=== PATIENT | female | born 1980 | race African-American/Black ===

== ENCOUNTER 2018-09-12 16:10 | Emergency (ER) | payer MEDICAID ==
[~2018-09-12] VITALS: Ht 165.1 cm; Wt 89.0 kg
[~2018-09-12 16:10] MED LIST: AZIT1PAC10 PO; FLUT1DIS3 INH; GUAI600T26 PO; P20 PO
[2018-09-12] MEDS ORDERED: MAGNESIUM 2 G PREMIX 50 ML IV STA (16:27)
[2018-09-12] MEDS ORDERED: IPRATROPIUM BROMIDE (0.02%) 0.5MG/2.5ML NEB HHN STA (16:27)
[2018-09-12] MEDS ORDERED: METHYLPREDNISOLONE SOD SUCC 125 MG/2 ML VIAL IV STA (16:27)
[2018-09-12] MEDS ORDERED: ALBUTEROL (0.083%) 2.5MG/3ML NEB HHN STA (16:27)
[2018-09-12] MEDS ORDERED: SODIUM CHLORIDE 0.9% 1,000 ML IV ONE (16:27)
[2018-09-12 17:27] LABS: BASOPHILS % 0.9 % (0.0-2.0); EOSINOPHILS % 1.2 % (0.0-5.0); HEMOGLOBIN. 13.9 g/dL (12.0-16.0); LYMPHOCYTES % 17.3 % (20.0-50.0); MEAN CORPUSCULAR HEMOGLOBIN 29.4 pg (28.0-32.0); MEAN PLATELET VOLUME 7.8 fl (7.4-10.4); MONOCYTES % 8.1 % (2.0-8.0); NEUTROPHILS % 72.5 % (40.0-76.0); PLATELET 341 x1000/uL (130-400); RED BLOOD CELL COUNT 4.72 mill/uL (4.2-5.4); RED CELL DISTRIBUTION WIDTH 14.6 % (11.6-14.6)
[2018-09-12 17:29] LABS: CHLORIDE 103 mEq/L (98-107)
[2018-09-12 17:41] LABS: HCG SCREEN NEGATIVE
[2018-09-12 17:46] LABS: INR 0.9; PROTHROMBIN TIME 9.6 sec (9.6-11.0)
[2018-09-12] MEDS ORDERED: LEVOFLOXACIN 500MG PREMIX 100 ML IV ONE (18:00)
[2018-09-12 21:30] VITALS: BP 155/95
== END 2018-09-12 22:03 | disposition left against medical advice (07) ==
LOC: ER 16:10 → EDBEDREQ 17:16 → CANRESERV 20:03 → ENRESERV 20:03 → ER 22:03 → CANBEDREQ 22:27
DX: J45.901 Unspecified asthma with (acute) exacerbation (principal); R65.10 Systemic inflammatory response syndrome (SIRS) of non-infectious origin without acute organ dysfunction; Z79.899 Other long term (current) drug therapy; Z87.891 Personal history of nicotine dependence
CPT/HCPCS: 36415; 71045; 80048; 83880; 84484; 84703; 85025; 85610; 85730; 87040; 93005; 94640; 96365; 96367; 96375; 99284; J1956; J2930; J3475; J7030; J7611

== ENCOUNTER 2018-09-26 19:38 | Inpatient (IN) | payer MEDICAID ==
[~2018-09-26] VITALS: Ht 167.6 cm; Wt 44.5 kg
[2018-09-26] MEDS ORDERED: IPRATROPIUM BROMIDE (0.02%) 0.5MG/2.5ML NEB HHN STA (20:31)
[2018-09-26] MEDS ORDERED: SODIUM CHLORIDE 0.9% 1,000 ML IV ONE (20:31)
[2018-09-26] MEDS ORDERED: MAGNESIUM 2 G PREMIX 50 ML IV STA (20:31)
[2018-09-26] MEDS ORDERED: METHYLPREDNISOLONE SOD SUCC 125 MG/2 ML VIAL IV STA (20:31)
[2018-09-26] MEDS ORDERED: ALBUTEROL (0.083%) 2.5MG/3ML NEB HHN STA (20:31)
[2018-09-26 20:51] LABS: CHLORIDE 106 mEq/L (98-107); HEMATOCRIT. 40.5 % (36.0-48.0); HEMOGLOBIN. 13.7 g/dL (12.0-16.0); MEAN CORPUSCULAR VOLUME 88.6 fL (81.0-99.0); MEAN PLATELET VOLUME 7.8 fl (7.4-10.4); PLATELET 344 x1000/uL (130-400); RED BLOOD CELL COUNT 4.57 mill/uL (4.2-5.4); RED CELL DISTRIBUTION WIDTH 14.4 % (11.6-14.6)
[2018-09-26 20:56] LABS: PARTIAL THROMBOPLASTIN TIME 29.9 sec (23.4-31.0); PROTHROMBIN TIME 10.2 sec (9.6-11.0)
[2018-09-26 21:16] LABS: HCG SCREEN NEGATIVE
[2018-09-26] MEDS ORDERED: AZITHROMYCIN 500 MG in DEXT 5% WATER 250 ML IV STA (21:24)
[2018-09-26 21:29] LABS: PLATELET ESTIMATE NORMAL
[2018-09-26] MEDS ORDERED: CEFTRIAXONE 1 G PREMIX 50 ML IV ONE (21:30)
[2018-09-26] MEDS ORDERED: LEVOFLOXACIN 500MG PREMIX 100 ML IV SCH (23:00)
[2018-09-26] MEDS ORDERED: HYDROCODONE/ACETAMINOPHEN 5/325MG TABLET PO PRN (23:00)
[2018-09-26] MEDS ORDERED: DOCUSATE SODIUM 100MG CAPSULE PO PRN (23:00)
[2018-09-26] MEDS ORDERED: IPRATROPIUM/ALBUTEROL 0.5-3(2.5)MG/3ML NEB INH PRN (23:00)
[2018-09-26] MEDS ORDERED: ACETAMINOPHEN 325MG TABLET PO PRN (23:00)
[2018-09-26] MEDS ORDERED: CLONIDINE 0.1MG TABLET PO PRN (23:00)
[2018-09-26] MEDS ORDERED: ONDANSETRON HCL 4MG/2ML INJ IV PRN (23:00)
[2018-09-27] VITALS (12 sets, daily range): BP systolic 117–149; BP diastolic 59–105
[2018-09-27] MEDS ORDERED: FLUT1AER IH (00:39)
[2018-09-27] MEDS ORDERED: MONT5TAB13 PO (00:39)
[2018-09-27 01:35] LABS: CLARITY URINE CLEAR (CLEAR); COLOR URINE YELLOW (YELLOW); KETONES URINE 1+ (NEGATIVE); LEUKOCYTE ESTERASE URINE NEGATIVE (NEGATIVE); NITRITE URINE NEGATIVE (NEGATIVE); OCCULT BLOOD URINE TRACE (NEGATIVE); PROTEIN URINE TRACE (NEGATIVE); SPECIFIC GRAVITY URINE 1.023 (1.005-1.030)
[2018-09-27] MEDS ORDERED: IPRATROPIUM/ALBUTEROL 0.5-3(2.5)MG/3ML NEB INH SCH ×2 (06:00)
[2018-09-27] MEDS: METHYLPREDNISOLONE SOD SUCC 125 MG/2 ML VIAL IV SCH ×3 (06:44→17:11)
[2018-09-27 07:09] LABS: HEMOGLOBIN. 13.2 g/dL (12.0-16.0); MEAN CORPUSCULAR HEMOGLOBIN 29.7 pg (28.0-32.0); MEAN CORPUSCULAR VOLUME 89.7 fL (81.0-99.0); PLATELET 348 x1000/uL (130-400); RED BLOOD CELL COUNT 4.46 mill/uL (4.2-5.4); RED CELL DISTRIBUTION WIDTH 14.5 % (11.6-14.6)
[2018-09-27 07:50] LABS: CHLORIDE 106 mEq/L (98-107)
[2018-09-27] MEDS: LEVOFLOXACIN 500MG PREMIX 100 ML IV SCH (08:20)
[2018-09-27] MEDS: AMLODIPINE 10MG TABLET PO SCH (08:20)
[2018-09-27] MEDS: ENOXAPARIN 40MG/0.4ML SYR SUBCUT SCH (08:20)
[2018-09-27] MEDS ORDERED: IPRATROPIUM/ALBUTEROL 0.5-3(2.5)MG/3ML NEB HHN SCH (12:00)
[2018-09-27] MEDS: LORATADINE 10MG TABLET PO SCH (12:20)
[2018-09-27] MEDS ORDERED: MONTELUKAST SODIUM 10MG TABLET PO SCH (17:00)
[2018-09-27 17:22] LABS: PLATELET ESTIMATE NORMAL
[2018-09-27] MEDS: FAMOTIDINE 20MG/2ML VIAL IV SCH (21:36)
[2018-09-28] VITALS (8 sets, daily range): BP systolic 114–158; BP diastolic 62–101
[2018-09-28] MEDS: METHYLPREDNISOLONE SOD SUCC 125 MG/2 ML VIAL IV SCH ×3 (00:12→11:42)
[2018-09-28] MEDS: LEVOFLOXACIN 500MG PREMIX 100 ML IV SCH (08:44)
[2018-09-28] MEDS: ENOXAPARIN 40MG/0.4ML SYR SUBCUT SCH (08:45)
[2018-09-28] MEDS: AMLODIPINE 10MG TABLET PO SCH (08:45)
[2018-09-28] MEDS: LORATADINE 10MG TABLET PO SCH (08:45)
[2018-09-28] MEDS: FAMOTIDINE 20MG/2ML VIAL IV SCH (08:45)
[2018-09-28] MEDS ORDERED: HYDRALAZINE HCL 10MG TABLET PO SCH (14:00)
== END 2018-09-28 13:50 | disposition home or self-care (01) | DRG 133 ==
LOC: ER 19:38 → 3WST 21:26 → EDBEDREQSVC 21:28 → EDBEDREQTM 21:28 → EDBEDREQ 21:28 → ENRESERV 21:40 → SUPCPDRO 22:53
PROVIDERS: ADMIT Hospitalist; ATTEND Hospitalist
DX: J96.00 Acute respiratory failure, unspecified whether with hypoxia or hypercapnia (principal); J45.901 Unspecified asthma with (acute) exacerbation; D72.829 Elevated white blood cell count, unspecified; Z60.2 Problems related to living alone; I10 Essential (primary) hypertension; Z87.891 Personal history of nicotine dependence; Z79.2 Long term (current) use of antibiotics; Z79.899 Other long term (current) drug therapy
CPT/HCPCS: 36415; 71045; 83605; 83880; 84484; 84703; 93005; 93970; 94640; 99291; C1893; J0456; J0696; J1650; J1956; J2930; J3475; J3490; J7030; J7050; J7060; J7611; J7620

== ENCOUNTER 2018-11-23 16:05 | Emergency (ER) | payer MEDICAID ==
[~2018-11-23] VITALS: Ht 167.6 cm; Wt 113.0 kg
[~2018-11-23 16:05] MED LIST changes: +FLUT1AER IH; -P20 PO
[2018-11-23] MEDS ORDERED: ALBUTEROL (0.083%) 2.5MG/3ML NEB HHN STA (16:59)
[2018-11-23] MEDS ORDERED: IPRATROPIUM BROMIDE (0.02%) 0.5MG/2.5ML NEB HHN STA (16:59)
[2018-11-23] MEDS ORDERED: PREDNISONE 20MG TABLET PO STA (16:59)
[2018-11-23 17:40] VITALS: BP 118/86
== END 2018-11-23 17:50 | disposition home or self-care (01) ==
LOC: ER 16:05
DX: J45.901 Unspecified asthma with (acute) exacerbation (principal); J06.9 Acute upper respiratory infection, unspecified
CPT/HCPCS: 94644; 99285; J7512; J7611; Z7610

== ENCOUNTER 2019-02-06 17:00 | Emergency (ER) | payer MEDICAID ==
[~2019-02-06] VITALS: Ht 167.6 cm; Wt 115.0 kg
[2019-02-06] MEDS ORDERED: PREDNISONE 20MG TABLET PO STA (18:07)
[2019-02-06] MEDS ORDERED: IPRATROPIUM BROMIDE (0.02%) 0.5MG/2.5ML NEB HHN STA (18:07)
[2019-02-06] MEDS ORDERED: ALBUTEROL (0.083%) 2.5MG/3ML NEB HHN STA (18:07)
[2019-02-06] MEDS ORDERED: HYDROCODONE/ACETAMINOPHEN 5/325MG TABLET PO ONE (19:15)
[2019-02-06 20:30] VITALS: BP 113/78
== END 2019-02-06 20:40 | disposition home or self-care (01) ==
LOC: ER 17:00
DX: J45.901 Unspecified asthma with (acute) exacerbation (principal); R07.89 Other chest pain; Z79.899 Other long term (current) drug therapy
CPT/HCPCS: 94644; 99285; J7512; J7611; Z7610

== ENCOUNTER 2019-03-03 02:20 | Emergency (ER) | payer MEDICAID ==
[~2019-03-03] VITALS: Ht 167.6 cm; Wt 114.0 kg
[2019-03-03] MEDS ORDERED: MAGNESIUM 2 G PREMIX 50 ML IV STA (05:39)
[2019-03-03] MEDS ORDERED: METHYLPREDNISOLONE SOD SUCC 125 MG/2 ML VIAL IV STA (05:39)
[2019-03-03] MEDS ORDERED: ALBUTEROL (0.083%) 2.5MG/3ML NEB HHN STA (05:39)
[2019-03-03] MEDS ORDERED: IPRATROPIUM BROMIDE (0.02%) 0.5MG/2.5ML NEB HHN STA (05:39)
[2019-03-03 09:33] VITALS: BP 120/76
== END 2019-03-03 10:05 | disposition home or self-care (01) ==
LOC: ER 02:20
DX: J45.901 Unspecified asthma with (acute) exacerbation (principal); F91.8 Other conduct disorders
CPT/HCPCS: 71045; 94640; 96365; 96375; 99285; J2930; J3475; J7611; Z7610

== ENCOUNTER 2019-12-24 12:49 | Emergency (ER) | payer MEDICAID ==
[~2019-12-24] VITALS: Ht 167.6 cm; Wt 113.0 kg
[2019-12-24] MEDS ORDERED: PREDNISONE 20MG TABLET PO STA (13:25)
[2019-12-24] MEDS ORDERED: IPRATROPIUM BROMIDE (0.02%) 0.5MG/2.5ML NEB HHN STA (13:25)
[2019-12-24] MEDS ORDERED: ALBUTEROL (0.083%) 2.5MG/3ML NEB HHN STA (13:25)
[2019-12-24 14:39] VITALS: BP 124/70
== END 2019-12-24 14:39 | disposition home or self-care (01) ==
LOC: ER 12:49
DX: J45.901 Unspecified asthma with (acute) exacerbation (principal)
CPT/HCPCS: 94640; 99283; J7512; Z7610

== ENCOUNTER 2020-01-23 17:25 | Emergency (ER) | payer MEDICAID ==
[~2020-01-23] VITALS: Ht 167.6 cm; Wt 120.0 kg
[2020-01-23 17:26] VITALS: BP 151/101
[2020-01-23] MEDS ORDERED: DEXAMETHASONE 10 MG/ML VIAL IM ONE (18:30)
[2020-01-23] MEDS ORDERED: IPRATROPIUM/ALBUTEROL 0.5-3(2.5)MG/3ML NEB HHN ONE ×2 (18:30→19:15)
== END 2020-01-23 20:00 | disposition home or self-care (01) ==
LOC: ER 17:25
DX: J45.901 Unspecified asthma with (acute) exacerbation (principal); R03.0 Elevated blood-pressure reading, without diagnosis of hypertension
CPT/HCPCS: 71045; 94640; 99284; J1100; Z7610

== ENCOUNTER 2020-05-22 19:34 | Emergency (ER) | payer MEDICAID ==
[~2020-05-22] VITALS: Ht 167.6 cm; Wt 113.0 kg
[2020-05-22 19:37] VITALS: BP 151/93
[2020-05-22] MEDS ORDERED: PREDNISONE 20MG TABLET PO STA (20:05)
[2020-05-22] MEDS ORDERED: ALBUTEROL 6.7GM HFA INHALER ORI ONE (20:15)
[2020-05-22] MEDS ORDERED: P50 MT (21:42)
[2020-05-22] MEDS ORDERED: NEBU-281 MC (21:43)
== END 2020-05-22 21:53 | disposition home or self-care (01) ==
LOC: ER 19:34
DX: J45.21 Mild intermittent asthma with (acute) exacerbation (principal); Z20.822 Contact with and (suspected) exposure to COVID-19; F17.210 Nicotine dependence, cigarettes, uncomplicated; R03.0 Elevated blood-pressure reading, without diagnosis of hypertension
CPT/HCPCS: 71045; 93005; 94640; 99285; C9803; J7512; U0003; Z7610

== ENCOUNTER 2020-08-16 20:33 | Emergency (ER) | payer MEDICAID ==
[~2020-08-16] VITALS: Ht 167.6 cm; Wt 113.0 kg
[~2020-08-16 20:33] MED LIST changes: +NEBU-281 MC; +P50 MT
[2020-08-16] MEDS ORDERED: IPRATROPIUM BROMIDE (0.02%) 0.5MG/2.5ML NEB HHN STA (21:39)
[2020-08-16] MEDS ORDERED: ALBUTEROL (0.083%) 2.5MG/3ML NEB HHN STA (21:39)
[2020-08-16] MEDS ORDERED: MAGNESIUM 2 G PREMIX 50 ML IV STA (21:39)
[2020-08-16] MEDS ORDERED: METHYLPREDNISOLONE SOD SUCC 125 MG/2 ML VIAL IV STA (21:39)
[2020-08-16] MEDS ORDERED: SODIUM CHLORIDE 0.9% 1,000 ML IV ONE (21:45)
[2020-08-16 22:23] LABS: BASOPHILS % 0.7 % (0.0-2.0); EOSINOPHILS % 2.1 % (0.0-5.0); HEMATOCRIT. 41.6 % (36.0-48.0); HEMOGLOBIN. 13.8 g/dL (12.0-16.0); LYMPHOCYTES % 21.8 % (20.0-50.0); MEAN CORPUSCULAR HEMOGLOBIN 29.6 pg (28.0-32.0); MEAN CORPUSCULAR VOLUME 89.1 fL (81.0-99.0); MEAN PLATELET VOLUME 7.9 fl (7.4-10.4); MONOCYTES % 8.8 % (2.0-8.0); NEUTROPHILS % 66.6 % (40.0-76.0); PLATELET 374 x1000/uL (130-400); RED BLOOD CELL COUNT 4.67 mill/uL (4.2-5.4); RED CELL DISTRIBUTION WIDTH 13.5 % (11.6-14.6)
[2020-08-16 22:29] LABS: CHLORIDE 104 mEq/L (98-107)
[2020-08-16 22:31] LABS: HCG SCREEN NEGATIVE
[2020-08-16 23:04] VITALS: BP 122/69
[2020-08-16] MEDS ORDERED: P50 MT (23:22)
[2020-08-16] MEDS ORDERED: ALBU6.7H9 INH (23:25)
== END 2020-08-17 00:47 | disposition home or self-care (01) ==
LOC: ER 20:33
DX: J45.901 Unspecified asthma with (acute) exacerbation (principal); Z79.899 Other long term (current) drug therapy
CPT/HCPCS: 36415; 71045; 80053; 83880; 84484; 84703; 85025; 93005; 94644; 96365; 96366; 96375; 99285; J2930; J3475; J7030; Z7610

== ENCOUNTER 2021-02-21 12:40 | Emergency (ER) | payer MEDICAID ==
[~2021-02-21] VITALS: Ht 167.6 cm; Wt 114.0 kg
[~2021-02-21 12:40] MED LIST changes: -IPRATROPIUM BROMIDE (0.02%) 0.5MG/2.5ML NEB ONE
[2021-02-21] MEDS ORDERED: ALBUTEROL (0.083%) 2.5MG/3ML NEB HHN STA (15:35)
[2021-02-21] MEDS ORDERED: PREDNISONE 20MG TABLET PO STA (15:35)
[2021-02-21] MEDS ORDERED: IPRATROPIUM BROMIDE (0.02%) 0.5MG/2.5ML NEB HHN STA (15:35)
[2021-02-21] MEDS ORDERED: ALBUTEROL (0.083%) 2.5MG/3ML NEB ONE (17:00)
[2021-02-21] MEDS ORDERED: P50 MT (17:21)
[2021-02-21 18:10] VITALS: BP 157/98
== END 2021-02-21 18:13 | disposition home or self-care (01) ==
LOC: ER 12:40
DX: J45.901 Unspecified asthma with (acute) exacerbation (principal); Z79.51 Long term (current) use of inhaled steroids; Z79.899 Other long term (current) drug therapy
CPT/HCPCS: 71045; 94640; 99283; J7512; Z7610

== ENCOUNTER → 2021-02-21 | Emergency (ER) | payer MEDICAID ==
[~2021-02-21] MED LIST changes: +ALBU6.7H9 INH; +IPRATROPIUM BROMIDE (0.02%) 0.5MG/2.5ML NEB ONE
== END | disposition left against medical advice (07) ==
LOC: ER 13:02
DX: J45.909 Unspecified asthma, uncomplicated (principal); Z53.21 Procedure and treatment not carried out due to patient leaving prior to being seen by health care provider

== ENCOUNTER 2022-06-18 20:53 | Emergency (ER) | payer MEDICAID ==
[~2022-06-18] VITALS: Ht 167.6 cm; Wt 103.6 kg
[~2022-06-18 20:53] MED LIST changes: +ALBU6.7H3 INH; -ALBU6.7H9 INH
[2022-06-18] MEDS ORDERED: KETOROLAC 60MG/2ML VIAL IM STA (23:11)
[2022-06-18 23:52] VITALS: BP 175/99
[2022-06-19] MEDS ORDERED: NAPR-681 PO (01:03)
== END 2022-06-19 01:23 | disposition home or self-care (01) ==
LOC: ER 21:02
DX: M72.2 Plantar fascial fibromatosis (principal); M20.12 Hallux valgus (acquired), left foot; M21.612 Bunion of left foot; M77.32 Calcaneal spur, left foot; J45.909 Unspecified asthma, uncomplicated
CPT/HCPCS: 73630; 81025; 96372; 99283; J1885

== ENCOUNTER 2023-03-29 22:03 | Emergency (ER) | payer MEDICAID ==
[~2023-03-29] VITALS: Ht 167.6 cm; Wt 132.0 kg
[~2023-03-29 22:03] MED LIST changes: +NAPR-681 PO
[2023-03-29 22:07] VITALS: TEMP 98.5
[2023-03-29] MEDS ORDERED: IPRATROPIUM BROMIDE (0.02%) 0.5MG/2.5ML NEB HHN STA (23:49)
[2023-03-29] MEDS ORDERED: ALBUTEROL (0.083%) 2.5MG/3ML NEB HHN STA (23:49)
[2023-03-29] MEDS ORDERED: PREDNISONE 20MG TABLET PO STA (23:49)
[2023-03-30 00:20] VITALS: PULSE 119; RESP 20; O2SAT 99
[2023-03-30] MEDS ORDERED: P50 MT (00:49)
[2023-03-30] MEDS ORDERED: ALBU6.7H15 INH (00:51)
[2023-03-30 00:52] VITALS: BP 184/123; PULSE 115; RESP 24
[2023-03-30] MEDS ORDERED: OCUFLX LEFTEYE (00:54)
== END 2023-03-30 01:04 | disposition left against medical advice (07) ==
LOC: ER 22:03
DX: J45.901 Unspecified asthma with (acute) exacerbation (principal); I10 Essential (primary) hypertension; H10.9 Unspecified conjunctivitis
CPT/HCPCS: 94644; 99285; J7512; Z7610 ×2

== ENCOUNTER 2023-05-31 02:30 | Inpatient (IN) | payer MEDICAID ==
[~2023-05-31] VITALS: Ht 165.1 cm; Wt 113.4 kg
[~2023-05-31 02:30] MED LIST changes: +ALBU6.7H15 INH; +OCUFLX LEFTEYE
[2023-05-31] MEDS: MAGNESIUM 2 G PREMIX 50 ML IV ONE (02:53)
[2023-05-31] MEDS: METHYLPREDNISOLONE SOD SUCC 125MG/2ML (ACT-O-VIAL) IV ONE (02:53)
[2023-05-31 03:07] LABS: BASOPHILS % 0.8 % (0.0-2.0); EOSINOPHILS % 0.2 % (0.0-5.0); HEMATOCRIT. 41.5 % (36.0-48.0); HEMOGLOBIN. 12.9 g/dL (12.0-16.0); LYMPHOCYTES % 25.1 % (20.0-50.0); MEAN CORPUSCULAR HEMOGLOBIN 27.3 pg (28.0-32.0); MEAN CORPUSCULAR HGB CONC 31.1 g/dL (31.0-37.0); MEAN CORPUSCULAR VOLUME 87.5 fL (81.0-99.0); MEAN PLATELET VOLUME 7.9 fl (7.4-10.4); MONOCYTES % 10.2 % (2.0-8.0); NEUTROPHILS % 63.7 % (40.0-76.0); PLATELET 299 x1000/uL (130-400); RED BLOOD CELL COUNT 4.74 mill/uL (4.2-5.4); RED CELL DISTRIBUTION WIDTH 18.7 % (11.6-14.6); WHITE BLOOD COUNT 17.5 x1000/uL (4.5-11.0)
[2023-05-31] MEDS: ALBUTEROL (0.083%) 2.5MG/3ML NEB HHN ONE (03:10)
[2023-05-31 03:11] VITALS: PULSE 119; RESP 24; O2SAT 96
[2023-05-31 03:11] LABS: CALCIUM 9.3 mg/dL (8.7-10.4); CARBON DIOXIDE 30 mEq/L (21-32); CHLORIDE 105 mEq/L (98-107); CREATININE 0.9 mg/dL (0.6-1.0); GLUCOSE 157 mg/dL (70-105); HCG SCREEN NEGATIVE; SODIUM 142 mEq/L (136-145); UREA NITROGEN BLOOD 16 mg/dL (9-23)
[2023-05-31] MEDS: IPRATROPIUM/ALBUTEROL 0.5-3(2.5)MG/3ML NEB HHN ONE (03:11)
[2023-05-31] MEDS: CEFTRIAXONE 1GM PREMIX 50 ML IV ONE (05:56)
[2023-05-31] MEDS: AZITHROMYCIN 500MG/250ML 250 ML IV ONE (05:56)
[2023-05-31] MEDS ORDERED: GUAIFENESIN 200MG/10ML SUGAR FREE UDC PO PRN (10:00)
[2023-05-31] MEDS ORDERED: IPRATROPIUM/ALBUTEROL 0.5-3(2.5)MG/3ML NEB HHN PRN (10:00)
[2023-05-31] MEDS ORDERED: ONDANSETRON HCL 4MG/2ML INJ IV PRN (10:00)
[2023-05-31] MEDS ORDERED: HYDROCODONE/ACETAMINOPHEN 5/325MG TABLET PO PRN (10:00)
[2023-05-31] MEDS ORDERED: DOCUSATE SODIUM 100MG CAPSULE PO PRN (10:00)
[2023-05-31] MEDS ORDERED: DIPHENHYDRAMINE 50MG/ML VIAL IV PRN (10:00)
[2023-05-31] MEDS ORDERED: ACETAMINOPHEN 325MG TABLET PO PRN (10:00)
[2023-05-31 10:15] LABS: BG BASE EXCESS 2.7 mmol/L (-2.0-2.0); BG FRACTION INSPIRED OXYGEN 40; BG HCO3 ACT 29.6 mmol/L (22.0-26.0); BG METHEMOGLOBIN 0.1 % (0.0-1.5); BG OXYGEN SATURATION 93.9 % (92.0-98.5); BG OXYHEMOGLOBIN 92.9 % (94.0-97.0); BG PCO2 55.6 mmHg (35.0-45.0); BG PH 7.344 (7.350-7.450); BG PO2 76.4 mmHg (75.0-100.0); BG SAMPLE SITE RIGHT BRACHIAL; BG TOTAL HEMOGLOBIN 13.4 g/dL (12.0-18.0); BG VENT MODE NASAL CANNULA
[2023-05-31] MEDS ORDERED: NALOXONE HCL 0.4MG/ML VIAL IV PRN (10:30)
[2023-05-31] MEDS ORDERED: AMLODIPINE 10MG TABLET PO SCH (10:30)
[2023-05-31] MEDS: AMLODIPINE 5MG TABLET PO NR (11:22)
[2023-05-31] MEDS: METHYLPREDNISOLONE SOD SUCC 125MG/2ML (ACT-O-VIAL) IV SCH (11:23)
[2023-05-31] MEDS: LISINOPRIL 40MG TABLET PO SCH (11:30)
[2023-05-31] MEDS: ENOXAPARIN 30MG/0.3ML SYR SUBCUT SCH (11:30)
[2023-05-31] MEDS: CLONIDINE 0.1MG TABLET PO PRN (12:16)
[2023-05-31] MEDS: HYDRALAZINE HCL 100MG TABLET PO NR (12:33)
[2023-05-31 13:00] VITALS: BP 188/121; PULSE 121; RESP 20; TEMP 98.2
[2023-05-31] MEDS: IPRATROPIUM/ALBUTEROL 0.5-3(2.5)MG/3ML NEB HHN SCH (13:49)
[2023-05-31 15:49] VITALS: PULSE 117; RESP 20
[2023-05-31 16:00] VITALS: BP 176/94; PULSE 126; RESP 21; TEMP 97.1
[2023-05-31 20:00] VITALS: BP 152/79; PULSE 102; PULSE 125; RESP 19; RESP 20; TEMP 97.7
[2023-06-01] VITALS (10 sets, daily range): BP systolic 130–164; BP diastolic 81–95; PULSE 101–125; RESP 17–25; TEMP 97–98.2
[2023-06-01] MEDS ORDERED: AZITHROMYCIN 500 MG in DEXT 5% WATER 250 ML IV SCH (06:00)
[2023-06-01] MEDS ORDERED: CEFTRIAXONE 1GM PREMIX 50 ML IV SCH (06:00)
[2023-06-01 06:06] LABS: ALANINE AMINOTRANSFERASE 43 IU/L (10-49); ASPARTATE AMINOTRANSFERASE 24 IU/L (<34); BILIRUBIN TOTAL 0.5 mg/dL (0.1-1.0); CALCIUM 9.4 mg/dL (8.7-10.4); CARBON DIOXIDE 31 mEq/L (21-32); CHLORIDE 103 mEq/L (98-107); CHOLESTEROL 176 mg/dL (<200); CREATININE 0.7 mg/dL (0.6-1.0); GLUCOSE 170 mg/dL (70-105); HDL CHOLESTEROL 78 mg/dL (>65); LDL CHOLESTEROL 87 mg/dL (5-100); SODIUM 141 mEq/L (136-145); TRIGLYCERIDE 53 mg/dL (0-150); UREA NITROGEN BLOOD 11 mg/dL (9-23)
[2023-06-01 06:15] LABS: PROTEIN TOTAL 5.7 g/dL (6.0-8.3)
[2023-06-01 07:16] LABS: HEMATOCRIT. 36.4 % (36.0-48.0); HEMOGLOBIN. 11.5 g/dL (12.0-16.0); MEAN CORPUSCULAR HEMOGLOBIN 27.6 pg (28.0-32.0); MEAN CORPUSCULAR HGB CONC 31.7 g/dL (31.0-37.0); MEAN CORPUSCULAR VOLUME 87.1 fL (81.0-99.0); MEAN PLATELET VOLUME 8.2 fl (7.4-10.4); PLATELET 281 x1000/uL (130-400); RED BLOOD CELL COUNT 4.18 mill/uL (4.2-5.4); RED CELL DISTRIBUTION WIDTH 18.6 % (11.6-14.6); WHITE BLOOD COUNT 21.5 x1000/uL (4.5-11.0)
[2023-06-01 07:41] LABS: DIFFERENTIAL COMMENT 1
[2023-06-01] MEDS: AMLODIPINE 10MG TABLET PO SCH (08:59)
[2023-06-01] MEDS: AZITHROMYCIN 500 MG in DEXT 5% WATER 250 ML IV SCH (09:00)
[2023-06-01] MEDS: CEFTRIAXONE 1GM PREMIX 50 ML IV SCH (10:58)
[2023-06-01] MEDS: HYDRALAZINE HCL 10MG TABLET PO SCH (13:55)
[2023-06-01] MEDS: METHYLPREDNISOLONE SOD SUCC 40MG/ML (ACT-O-VIAL) IV SCH (13:56)
[2023-06-01 15:20] LABS: ATYPICAL LYMPHOCYTES 2; PLATELET ESTIMATE NORMAL
[2023-06-02] VITALS (7 sets, daily range): BP systolic 156–181; BP diastolic 80–114; PULSE 94–116; RESP 18–20; TEMP 97.2–97.8; O2SAT 97
[2023-06-02] MEDS: TRAMADOL 50MG TABLET PO PRN (08:28)
[2023-06-02] MEDS ORDERED: HYDRALAZINE HCL 100MG TABLET PO SCH (14:00)
== END 2023-06-02 17:55 | disposition home or self-care (01) | DRG 141 ==
LOC: ER 02:30 → 8WST 05:19
PROVIDERS: ADMIT Hospitalist; ATTEND Hospitalist
DX: J45.901 Unspecified asthma with (acute) exacerbation (principal); E66.9 Obesity, unspecified; I16.0 Hypertensive urgency; Z68.41 Body mass index [BMI] 40.0-44.9, adult; Z79.899 Other long term (current) drug therapy
CPT/HCPCS: 36415; 36600; 71045; 80048; 80053; 80061; 82375; 82805; 83605; 84145; 84703; 85025; 93005; 94640; 99285; J0456; J0696; J1650; J2920; J2930; J3475; J7060

== ENCOUNTER 2023-11-19 23:50 | Inpatient (IN) | payer SELFPAY ==
[~2023-11-19] VITALS: Ht 167.6 cm; Wt 90.7 kg
[~2023-11-19 23:50] MED LIST changes: -AZIT1PAC10 PO
[2023-11-20] MEDS: ALBUTEROL (0.083%) 2.5MG/3ML NEB HHN STA (00:19)
[2023-11-20] MEDS: IPRATROPIUM BROMIDE (0.02%) 0.5MG/2.5ML NEB HHN STA (00:20)
[2023-11-20 00:24] VITALS: PULSE 135; RESP 26; O2SAT 98
[2023-11-20 00:39] LABS: BASOPHILS % 0.4 % (0.0-2.0); EOSINOPHILS % 0.3 % (0.0-5.0); HEMOGLOBIN. 10.4 g/dL (12.0-16.0); LYMPHOCYTES % 12.2 % (20.0-50.0); MEAN CORPUSCULAR HEMOGLOBIN 25.4 pg (28.0-32.0); MEAN CORPUSCULAR HGB CONC 30.4 g/dL (31.0-37.0); MEAN CORPUSCULAR VOLUME 83.4 fL (81.0-99.0); MEAN PLATELET VOLUME 7.7 fl (7.4-10.4); MONOCYTES % 11.6 % (2.0-8.0); NEUTROPHILS % 75.5 % (40.0-76.0); PLATELET 362 x1000/uL (130-400); RED BLOOD CELL COUNT 4.08 mill/uL (4.2-5.4); RED CELL DISTRIBUTION WIDTH 19.1 % (11.6-14.6); WHITE BLOOD COUNT 15.7 x1000/uL (4.5-11.0)
[2023-11-20 00:42] LABS: CHLORIDE 105 mEq/L (98-107); POTASSIUM 3.4 mEq/L (3.5-5.1); SODIUM 141 mEq/L (136-145)
[2023-11-20 00:43] LABS: CARBON DIOXIDE 31 mEq/L (21-32)
[2023-11-20 00:44] LABS: CALCIUM 9.1 mg/dL (8.7-10.4)
[2023-11-20 00:47] LABS: PARTIAL THROMBOPLASTIN TIME 23.8 sec (23.4-31.0); PROTHROMBIN TIME 10.9 sec (9.6-11.0)
[2023-11-20 00:48] LABS: CREATININE 0.7 mg/dL (0.6-1.0); GLUCOSE 166 mg/dL (70-105); UREA NITROGEN BLOOD 12 mg/dL (9-23)
[2023-11-20 00:51] LABS: ETHANOL BLOOD < 10 mg/dL (<10); TROPONIN I HIGH SENSITIVITY 68 ng/L (3.0-34)
[2023-11-20 01:06] LABS: HCG SCREEN NEGATIVE
[2023-11-20] MEDS: METHYLPREDNISOLONE SOD SUCC 125MG/2ML (ACT-O-VIAL) IV STA (01:11)
[2023-11-20] MEDS: SODIUM CHLORIDE 0.9% 1,000 ML IV ONE (01:12)
[2023-11-20] MEDS: MAGNESIUM 2 G PREMIX 50 ML IV ONE (01:41)
[2023-11-20] MEDS: LABETALOL 5MG/ML 4ML INJ IV ONE (02:55)
[2023-11-20] MEDS ORDERED: IPRATROPIUM/ALBUTEROL 0.5-3(2.5)MG/3ML NEB HHN PRN (04:00)
[2023-11-20] MEDS ORDERED: ONDANSETRON HCL 4MG/2ML INJ IV PRN (04:00)
[2023-11-20] MEDS ORDERED: GUAIFENESIN 200MG/10ML SUGAR FREE UDC PO PRN (04:00)
[2023-11-20] MEDS ORDERED: DOCUSATE SODIUM 100MG CAPSULE PO PRN (04:00)
[2023-11-20 05:00] LABS: CARBON DIOXIDE 32 mEq/L (21-32); CHLORIDE 104 mEq/L (98-107); POTASSIUM 3.7 mEq/L (3.5-5.1); SODIUM 140 mEq/L (136-145)
[2023-11-20] MEDS ORDERED: DEXTROSE 50% WATER 50ML SYRINGE IV PRN ×2 (05:00→06:00)
[2023-11-20 05:05] LABS: IRON 16 ug/dL (50-170)
[2023-11-20 05:06] LABS: CREATININE 0.7 mg/dL (0.6-1.0); GLUCOSE 240 mg/dL (70-105); TRIGLYCERIDE 118 mg/dL (0-150); UREA NITROGEN BLOOD 12 mg/dL (9-23)
[2023-11-20 05:07] LABS: CREATINE KINASE MB FRACTION 2.5 ng/mL (0.5-3.6); LDL CHOLESTEROL 141 mg/dL (5-100); TOTAL IRON BINDING CAPACITY 345 ug/dl (250-425)
[2023-11-20 05:08] LABS: ALBUMIN 4.3 g/dL (3.2-4.8); CHOLESTEROL 204 mg/dL (<200); HDL CHOLESTEROL 44 mg/dL (>65)
[2023-11-20 05:10] LABS: T4 FREE 1.68 ng/dL (0.89-1.76); THYROID STIMULATING HORMONE 0.25 uIU/mL (0.55-4.78)
[2023-11-20] MEDS: IPRATROPIUM/ALBUTEROL 0.5-3(2.5)MG/3ML NEB HHN SCH (06:00)
[2023-11-20 07:15] LABS: HEMATOCRIT. 34.2 % (36.0-48.0); HEMOGLOBIN. 10.3 g/dL (12.0-16.0); MEAN CORPUSCULAR HEMOGLOBIN 25.5 pg (28.0-32.0); MEAN PLATELET VOLUME 8.3 fl (7.4-10.4); PLATELET 352 x1000/uL (130-400); RED BLOOD CELL COUNT 4.03 mill/uL (4.2-5.4); RED CELL DISTRIBUTION WIDTH 19.4 % (11.6-14.6); WHITE BLOOD COUNT 17.8 x1000/uL (4.5-11.0)
[2023-11-20 07:18] LABS: DIFFERENTIAL COMMENT 1
[2023-11-20] MEDS: AMLODIPINE 5MG TABLET PO SCH (07:55)
[2023-11-20] MEDS: FUROSEMIDE 40MG TABLET PO NR (07:55)
[2023-11-20 07:56] LABS: PLATELET ESTIMATE NORMAL
[2023-11-20] MEDS: POTASSIUM CHLORIDE 20MEQ/PACKET PO NR (07:56)
[2023-11-20] MEDS: METHYLPREDNISOLONE SOD SUCC 125MG/2ML (ACT-O-VIAL) IV SCH (07:56)
[2023-11-20] MEDS ORDERED: INSULIN LISPRO 100 UNITS/ML SUBCUT SCH (08:20)
[2023-11-20] MEDS: AZITHROMYCIN 500MG/250ML 250 ML IV SCH (08:40)
[2023-11-20] MEDS: BLOOD SUGAR DIAGNOSTIC STRIP TEST SCH (08:59)
[2023-11-20] MEDS ORDERED: BLOOD SUGAR DIAGNOSTIC STRIP TEST SCH (09:00)
[2023-11-20] MEDS: INSULIN LISPRO 100 UNITS/ML SUBCUT SCH (09:03)
[2023-11-20 13:15] VITALS: PULSE 113; RESP 22; O2SAT 98
[2023-11-20 13:45] LABS: T4 FREE 1.8 ng/dL (0.89-1.76)
[2023-11-20 16:11] LABS: CREATINE KINASE MB FRACTION 3.3 ng/mL (0.5-3.6)
[2023-11-20 19:00] VITALS: BP 145/92; PULSE 112; RESP 18; TEMP 96.7
[2023-11-20 20:00] VITALS: BP 145/92; PULSE 112; RESP 20; TEMP 98
[2023-11-20 21:13] VITALS: PULSE 120; RESP 21; O2SAT 95
[2023-11-20] MEDS: ATORVASTATIN CALCIUM 40MG TABLET PO SCH (21:23)
[2023-11-20] MEDS: FAMOTIDINE 20MG TABLET PO SCH (21:24)
[2023-11-20 21:47] VITALS: BP 153/92; PULSE 120
[2023-11-20] MEDS: LOSARTAN 25 MG TABLET PO SCH (22:00)
[2023-11-20] MEDS ORDERED: IPRATROPIUM BROMIDE (0.02%) 0.5MG/2.5ML NEB HHN PRN (22:00)
[2023-11-21] VITALS (10 sets, daily range): BP systolic 145–177; BP diastolic 62–103; PULSE 95–128; RESP 18–22; TEMP 97–98.2; O2SAT 93–99
[2023-11-21] MEDS: IPRATROPIUM BROMIDE (0.02%) 0.5MG/2.5ML NEB HHN SCH (00:42)
[2023-11-21] MEDS: AZITHROMYCIN 500MG/250ML 250 ML IV SCH (05:18)
[2023-11-21 07:56] LABS: CLARITY URINE CLEAR (CLEAR); COLOR URINE YELLOW (YELLOW); GLUCOSE URINE NEGATIVE (NEGATIVE); KETONES URINE NEGATIVE (NEGATIVE); LEUKOCYTE ESTERASE URINE NEGATIVE (NEGATIVE); NITRITE URINE NEGATIVE (NEGATIVE); OCCULT BLOOD URINE NEGATIVE (NEGATIVE); PROTEIN URINE 1+ (NEGATIVE); SPECIFIC GRAVITY URINE 1.025 (1.005-1.030)
[2023-11-21 08:16] LABS: *AMPHETAMINES SCREEN URINE NEGATIVE (NEGATIVE); *BARBITURATES SCREEN URINE NEGATIVE (NEGATIVE); *BENZODIAZEPINES SCREEN URINE NEGATIVE (NEGATIVE); *COCAINE SCREEN URINE NEGATIVE (NEGATIVE); CANNABINOID URINE SCREEN PRESUMPTIVE POSITIVE (NEGATIVE); METHADONE URINE SCREEN NEGATIVE (NEGATIVE); OPIATES URINE SCREEN PRESUMPTIVE POSITIVE (NEGATIVE); PHENCYCLIDINE URINE SCREEN NEGATIVE (NEGATIVE)
[2023-11-21 08:21] LABS: BACTERIA URINE 1+; RBC URINE 0-2 /hpf (0-2); SQUAMOUS EPITHELIAL CELL URINE 2+ /lpf (RARE/1+); WBC URINE 0-2 /hpf (0-2); YEAST URINE NONE SEEN
[2023-11-21] MEDS: HYDROCHLOROTHIAZIDE 12.5MG CAPSULE PO SCH (08:31)
[2023-11-21] MEDS: ACETAMINOPHEN 325MG TABLET PO PRN (13:31)
[2023-11-21] MEDS: CLONIDINE 0.1MG TABLET PO PRN (16:16)
[2023-11-22] VITALS (13 sets, daily range): BP systolic 148–168; BP diastolic 73–103; PULSE 79–120; RESP 16–19; TEMP 97–98.2; O2SAT 98
[2023-11-22] MEDS ORDERED: IPRATROPIUM/ALBUTEROL 0.5-3(2.5)MG/3ML NEB HHN PRN (16:45)
[2023-11-22] MEDS: IPRATROPIUM/ALBUTEROL 0.5-3(2.5)MG/3ML NEB HHN SCH (20:26)
[2023-11-22] MEDS: DIPHENHYDRAMINE 25MG CAPSULE PO PRN (21:05)
[2023-11-22] MEDS: METHYLPREDNISOLONE SOD SUCC 40MG/ML (ACT-O-VIAL) IV SCH (21:05)
[2023-11-23] VITALS (11 sets, daily range): BP systolic 144–168; BP diastolic 81–99; PULSE 63–130; RESP 16–20; TEMP 97.3–99; O2SAT 97–98
[2023-11-23] MEDS: HYDROCHLOROTHIAZIDE 12.5MG CAPSULE PO SCH (08:46)
[2023-11-23 12:14] LABS: CALCIUM 9.2 mg/dL (8.7-10.4); CARBON DIOXIDE 34 mEq/L (21-32); CHLORIDE 100 mEq/L (98-107); POTASSIUM 3.6 mEq/L (3.5-5.1); SODIUM 138 mEq/L (136-145)
[2023-11-23 12:15] LABS: HEMATOCRIT 31.8 % (36.0-48.0); HEMOGLOBIN 9.6 g/dL (12.0-16.0); MEAN CORPUSCULAR HEMOGLOBIN 24.9 pg (28.0-32.0); MEAN CORPUSCULAR HGB CONC 30.4 g/dL (31.0-37.0); MEAN CORPUSCULAR VOLUME 81.9 fL (81.0-99.0); PLATELET 439 x1000/uL (130-400); RED BLOOD CELL COUNT 3.88 mill/uL (4.2-5.4); RED CELL DISTRIBUTION WIDTH 18.5 % (11.6-14.6); WHITE BLOOD COUNT 23.1 x1000/uL (4.5-11.0)
[2023-11-23 12:20] LABS: CREATININE 0.7 mg/dL (0.6-1.0); GLUCOSE 259 mg/dL (70-105); UREA NITROGEN BLOOD 19 mg/dL (9-23)
[2023-11-23] MEDS: ACETAMINOPHEN 325MG TABLET PO PRN (20:56)
[2023-11-23] MEDS: ENOXAPARIN 40MG/0.4ML SYR SUBCUT SCH (21:22)
[2023-11-23] MEDS: HYDROCODONE/ACETAMINOPHEN 5/325MG TABLET PO PRN (22:38)
[2023-11-24] VITALS (10 sets, daily range): BP systolic 130–166; BP diastolic 81–96; PULSE 69–129; RESP 16–20; TEMP 97.1–98.6; O2SAT 96–98
[2023-11-24 07:07] LABS: CARBON DIOXIDE 33 mEq/L (21-32); CHLORIDE 103 mEq/L (98-107); POTASSIUM 3.7 mEq/L (3.5-5.1); SODIUM 140 mEq/L (136-145)
[2023-11-24 07:13] LABS: CREATININE 0.7 mg/dL (0.6-1.0); GLUCOSE 147 mg/dL (70-105); UREA NITROGEN BLOOD 20 mg/dL (9-23)
[2023-11-24 07:17] LABS: HEMATOCRIT 32.4 % (36.0-48.0); HEMOGLOBIN 9.9 g/dL (12.0-16.0); MEAN CORPUSCULAR HEMOGLOBIN 24.9 pg (28.0-32.0); MEAN CORPUSCULAR HGB CONC 30.6 g/dL (31.0-37.0); MEAN CORPUSCULAR VOLUME 81.4 fL (81.0-99.0); PLATELET 436 x1000/uL (130-400); RED BLOOD CELL COUNT 3.98 mill/uL (4.2-5.4); RED CELL DISTRIBUTION WIDTH 18.8 % (11.6-14.6); WHITE BLOOD COUNT 21.3 x1000/uL (4.5-11.0)
[2023-11-24 08:37] LABS: BG BASE EXCESS 5.2 mmol/L (-2.0-2.0); BG CARBOXYHEMOGLOBIN 1.1 % (0.5-1.5); BG HCO3 ACT 30.2 mmol/L (22.0-26.0); BG METHEMOGLOBIN 0.3 % (0.0-1.5); BG OXYGEN SATURATION 93.9 % (92.0-98.5); BG OXYHEMOGLOBIN 92.6 % (94.0-97.0); BG PCO2 45.8 mmHg (35.0-45.0); BG PH 7.437 (7.350-7.450); BG PO2 68.1 mmHg (75.0-100.0); BG SAMPLE SITE LEFT RADIAL; BG TOTAL HEMOGLOBIN 12.6 g/dL (12.0-18.0); BG VENT MODE ROOM AIR
[2023-11-24] MEDS: METHYLPREDNISOLONE SOD SUCC 40MG/ML (ACT-O-VIAL) IV SCH (09:04)
[2023-11-24] MEDS: LOSARTAN 50 MG TABLET PO SCH (09:04)
[2023-11-24] MEDS ORDERED: LIP40 PO (14:47)
[2023-11-24] MEDS ORDERED: AMLO5TAB88 PO (14:47)
[2023-11-24] MEDS ORDERED: P20 PO (14:59)
== END 2023-11-24 17:50 | disposition home or self-care (01) | DRG 141 ==
LOC: ER 23:50 → 5WST 11-20 03:37 → UNDOADMIN 11-20 03:37 → 6WST 11-20 03:37 → EDBEDREQ 11-20 04:00 → EDBEDREQTM 11-20 04:00
PROVIDERS: ADMIT Internal Medicine; ATTEND Internal Medicine
DX: J45.901 Unspecified asthma with (acute) exacerbation (principal); J96.00 Acute respiratory failure, unspecified whether with hypoxia or hypercapnia; I21.A1 Myocardial infarction type 2; E11.9 Type 2 diabetes mellitus without complications; D64.9 Anemia, unspecified; E66.9 Obesity, unspecified; Z68.32 Body mass index [BMI] 32.0-32.9, adult; E78.5 Hyperlipidemia, unspecified; I10 Essential (primary) hypertension; J45.902 Unspecified asthma with status asthmaticus; I16.1 Hypertensive emergency; E87.6 Hypokalemia; T38.0X5A Adverse effect of glucocorticoids and synthetic analogues, initial encounter; Y92.89 Other specified places as the place of occurrence of the external cause
CPT/HCPCS: 36415; 36600; 71045; 80048; 80061; 80305; 80320; 81003; 82040; 82375; 82550; 82553; 82728; 82805; 82962; 83036; 83540; 83550; 83735; 83880; 84145; 84439; 84443; 84484; 84703; 85025; 85027; 85379; 93005; 93306; 93970; 94640; 97165; 99291; C1893; J0456; J1650; J1815; J2919; J2920; J3475; J3490; J7030; Q0163; G0480

== ENCOUNTER 2024-03-05 22:14 | Inpatient (IN) | payer SELFPAY ==
[~2024-03-05] VITALS: Ht 167.6 cm; Wt 73.7 kg
[2024-03-05] MEDS: IPRATROPIUM BROMIDE (0.02%) 0.5MG/2.5ML NEB HHN STA (00:40)
[2024-03-05] MEDS: ALBUTEROL (0.083%) 2.5MG/3ML NEB HHN STA (00:43)
[~2024-03-05 22:14] MED LIST changes: -ALBU6.7H15 INH; +AMLO5TAB88 PO; -FLUT1AER IH; +LIP40 PO; -NAPR-681 PO; -OCUFLX LEFTEYE; +P20 PO; -P50 MT
[2024-03-05] MEDS: SODIUM CHLORIDE 0.9% (SEPSIS BOLUS) IV ONE (22:40)
[2024-03-05] MEDS: METHYLPREDNISOLONE SOD SUCC 125MG/2ML (ACT-O-VIAL) IV STA (22:41)
[2024-03-05 22:57] LABS: BASOPHILS % 0.8 % (0.0-2.0); DIFFERENTIAL COMMENT 0; EOSINOPHILS % 2.8 % (0.0-5.0); HEMATOCRIT. 36.8 % (36.0-48.0); LYMPHOCYTES % 11.9 % (20.0-50.0); MEAN CORPUSCULAR HEMOGLOBIN 22.6 pg (28.0-32.0); MEAN CORPUSCULAR VOLUME 75.3 fL (81.0-99.0); MEAN PLATELET VOLUME 7.9 fl (7.4-10.4); MONOCYTES % 13.4 % (2.0-8.0); NEUTROPHILS % 71.1 % (40.0-76.0); PLATELET 467 x1000/uL (130-400); RED BLOOD CELL COUNT 4.89 mill/uL (4.2-5.4); WHITE BLOOD COUNT 13.2 x1000/uL (4.5-11.0)
[2024-03-05 23:00] LABS: CHLORIDE 99 mEq/L (98-107); INR 1.1; POTASSIUM 3.2 mEq/L (3.5-5.1); PROTHROMBIN TIME 12.1 sec (9.6-11.0); SODIUM 140 mEq/L (136-145)
[2024-03-05 23:01] LABS: CALCIUM 9.1 mg/dL (8.7-10.4); CARBON DIOXIDE 36 mEq/L (21-32)
[2024-03-05 23:06] LABS: CREATININE 0.8 mg/dL (0.6-1.0); GLUCOSE 100 mg/dL (70-105); UREA NITROGEN BLOOD 8 mg/dL (9-23)
[2024-03-05 23:08] LABS: ALANINE AMINOTRANSFERASE 14 IU/L (10-49); ALBUMIN 3.8 g/dL (3.2-4.8); ASPARTATE AMINOTRANSFERASE 19 IU/L (<34); BILIRUBIN DIRECT 0.4 mg/dL (<=3.0)
[2024-03-05 23:09] LABS: BILIRUBIN TOTAL 1.2 mg/dL (0.1-1.0); PROTEIN TOTAL 6.1 g/dL (6.0-8.3)
[2024-03-05 23:14] LABS: TROPONIN I HIGH SENSITIVITY 48 ng/L (3.0-34)
[2024-03-05] MEDS: AZITHROMYCIN 500MG/250ML 250 ML IV ONE (23:15)
[2024-03-05] MEDS: CLOPIDOGREL 75MG TABLET PO ONE (23:32)
[2024-03-05] MEDS: ASPIRIN 325MG EC TABLET PO ONE (23:32)
[2024-03-05] MEDS: POTASSIUM CHLORIDE 20MEQ TABLET SR PO ONE (23:32)
[2024-03-06] MEDS ORDERED: ONDANSETRON HCL 4MG/2ML INJ IV PRN (00:30)
[2024-03-06] MEDS ORDERED: CLONIDINE 0.1MG TABLET PO PRN (00:30)
[2024-03-06] MEDS: BUDESONIDE 0.5MG/2ML NEB HHN SCH (00:30)
[2024-03-06] MEDS ORDERED: GUAIFENESIN 200MG/10ML SUGAR FREE UDC PO PRN (00:30)
[2024-03-06] MEDS: IPRATROPIUM/ALBUTEROL 0.5-3(2.5)MG/3ML NEB HHN SCH (00:30)
[2024-03-06] MEDS ORDERED: MAGNESIUM/ALUMINUM HYDROXIDE/SIMETHICONE 30ML UDC PO PRN (00:30)
[2024-03-06] MEDS ORDERED: HYDROCODONE/ACETAMINOPHEN 5/325MG TABLET PO PRN (00:30)
[2024-03-06] MEDS ORDERED: DOCUSATE SODIUM 100MG CAPSULE PO PRN (00:30)
[2024-03-06 00:44] VITALS: PULSE 115; RESP 18; O2SAT 100
[2024-03-06] MEDS: MAGNESIUM 2 G PREMIX 50 ML IV NR (01:27)
[2024-03-06 01:29] LABS: ALANINE AMINOTRANSFERASE 12 IU/L (10-49); ALBUMIN 3.4 g/dL (3.2-4.8); ASPARTATE AMINOTRANSFERASE 17 IU/L (<34); BILIRUBIN DIRECT 0.4 mg/dL (<=3.0); BILIRUBIN TOTAL 1.1 mg/dL (0.1-1.0); PROTEIN TOTAL 5.4 g/dL (6.0-8.3); TOTAL IRON BINDING CAPACITY 328 ug/dl (250-425)
[2024-03-06 01:40] LABS: TROPONIN I HIGH SENSITIVITY 39 ng/L (3.0-34)
[2024-03-06 01:54] LABS: IRON 11 ug/dL (50-170)
[2024-03-06] MEDS: MORPHINE SULFATE 2 MG/ML INJ (NOT FOR IM USE) IV PRN (03:42)
[2024-03-06 04:18] LABS: BG BASE EXCESS 2.3 mmol/L (-2.0-3.0); BG CARBOXYHEMOGLOBIN 1.4 % (0.5-1.5); BG DEOXYHEMOGLOBIN 6.6 % (0.0-5.0); BG HCO3 ACT 28.4 mmol/L (21.0-28.0); BG OXYGEN SATURATION 93.3 % (94.0-98.0); BG PCO2 51.2 mmHg (32.0-45.0); BG PH 7.362 (7.350-7.450); BG PO2 72.5 mmHg (83.0-108.0); BG TOTAL HEMOGLOBIN 11.5 g/dL (12.0-16.0); BG VENT MODE NASAL CANNULA
[2024-03-06] MEDS: ALBUTEROL (0.083%) 2.5MG/3ML NEB HHN NR (05:27)
[2024-03-06] MEDS: IPRATROPIUM BROMIDE (0.02%) 0.5MG/2.5ML NEB HHN NR (05:29)
[2024-03-06] MEDS: METHYLPREDNISOLONE SOD SUCC 125MG/2ML (ACT-O-VIAL) IV SCH (06:33)
[2024-03-06] MEDS: IPRATROPIUM BROMIDE (0.02%) 0.5MG/2.5ML NEB HHN SCH (07:51)
[2024-03-06] MEDS: FUROSEMIDE 40MG/4ML VIAL IV SCH (09:56)
[2024-03-06] MEDS: ENOXAPARIN 30MG/0.3ML SYR SUBCUT SCH (09:56)
[2024-03-06] MEDS: ASPIRIN 81MG EC TABLET PO SCH (09:57)
[2024-03-06] MEDS: CEFTRIAXONE 1GM/50ML 50 ML IV SCH (10:02)
[2024-03-06] MEDS ORDERED: POTASSIUM CHLORIDE 20MEQ TABLET SR PO NR (11:30)
[2024-03-06 12:00] VITALS: BP 132/80; PULSE 115; RESP 18; TEMP 36.33624; O2SAT 95
[2024-03-06 16:00] VITALS: BP 114/79; PULSE 118; RESP 16; TEMP 36.72516; O2SAT 99
[2024-03-06 16:40] LABS: HEMATOCRIT. 34.4 % (36.0-48.0); HEMOGLOBIN. 10.3 g/dL (12.0-16.0); MEAN CORPUSCULAR HEMOGLOBIN 22.6 pg (28.0-32.0); MEAN CORPUSCULAR HGB CONC 30.1 g/dL (31.0-37.0); MEAN CORPUSCULAR VOLUME 75.1 fL (81.0-99.0); MEAN PLATELET VOLUME 7.8 fl (7.4-10.4); PLATELET 416 x1000/uL (130-400); RED BLOOD CELL COUNT 4.59 mill/uL (4.2-5.4); RED CELL DISTRIBUTION WIDTH 19.8 % (11.6-14.6); WHITE BLOOD COUNT 10.4 x1000/uL (4.5-11.0)
[2024-03-06 16:42] LABS: DIFFERENTIAL COMMENT 1
[2024-03-06 16:54] LABS: CHLORIDE 100 mEq/L (98-107); SODIUM 139 mEq/L (136-145)
[2024-03-06 16:55] LABS: CALCIUM 8.9 mg/dL (8.7-10.4); CARBON DIOXIDE 34 mEq/L (21-32)
[2024-03-06 16:58] LABS: TROPONIN I HIGH SENSITIVITY 21 ng/L (3.0-34)
[2024-03-06 17:00] LABS: CREATININE 0.8 mg/dL (0.6-1.0); GLUCOSE 174 mg/dL (70-105); UREA NITROGEN BLOOD 9 mg/dL (9-23)
[2024-03-06 17:02] LABS: CREATINE KINASE 165 IU/L (34-145); THYROID STIMULATING HORMONE < 0.10 uIU/mL (0.55-4.78)
[2024-03-06 17:04] LABS: T4 FREE 1.42 ng/dL (0.89-1.76)
[2024-03-06] MEDS ORDERED: IPRATROPIUM BROMIDE (0.02%) 0.5MG/2.5ML NEB HHN PRN (17:15)
[2024-03-06] MEDS ORDERED: ACETAMINOPHEN 650MG/20.3ML UDC PO PRN (17:15)
[2024-03-06 18:42] LABS: HEPATITIS B SURFACE ANTIGEN NEGATIVE (Negative)
[2024-03-06 19:03] LABS: HEPATITIS A AB IGM NEGATIVE (Negative); HEPATITIS B CORE AB IGM NEGATIVE (Negative); HEPATITIS C AB NON REACTIVE (Neg) (Negative)
[2024-03-06 19:24] LABS: PLATELET ESTIMATE SLIGHTLY INCREASED
[2024-03-06 19:25] LABS: HYPOCHROMASIA 1+; MICROCYTOSIS 1+
[2024-03-06 19:26] LABS: ANISOCYTOSIS 1+
[2024-03-06 20:00] VITALS: BP 130/93; PULSE 120; RESP 18; TEMP 37.2252; O2SAT 94
[2024-03-06] MEDS: ATORVASTATIN CALCIUM 40MG TABLET PO SCH (20:17)
[2024-03-06 21:15] LABS: FOLIC ACID (FOLATE) SERUM 16.57 ng/mL (>5.38)
[2024-03-06 21:16] LABS: FERRITIN 16 ng/mL (10-291)
[2024-03-06 21:29] LABS: VITAMIN B12 SERUM > 2000 pg/mL (211-911)
[2024-03-06] MEDS ORDERED: AZITHROMYCIN 500MG/250ML 250 ML IV SCH (23:30)
[2024-03-07] VITALS (10 sets, daily range): BP systolic 106–137; BP diastolic 66–80; PULSE 73–118; RESP 16–22; TEMP 36.0288–37.16964; O2SAT 90–100
[2024-03-07] MEDS: AZITHROMYCIN 500MG/250ML 250 ML IV SCH (05:29)
[2024-03-07 06:21] LABS: CARBON DIOXIDE 37 mEq/L (21-32); CHLORIDE 102 mEq/L (98-107); POTASSIUM 3.4 mEq/L (3.5-5.1); SODIUM 143 mEq/L (136-145)
[2024-03-07 06:22] LABS: CALCIUM 8.5 mg/dL (8.7-10.4)
[2024-03-07 06:27] LABS: CREATININE 0.7 mg/dL (0.6-1.0); GLUCOSE 107 mg/dL (70-105); THYROID STIMULATING HORMONE < 0.10 uIU/mL (0.55-4.78); TRIGLYCERIDE 97 mg/dL (0-150); UREA NITROGEN BLOOD 7 mg/dL (9-23)
[2024-03-07 06:28] LABS: LDL CHOLESTEROL 91 mg/dL (5-100)
[2024-03-07 06:29] LABS: CHOLESTEROL 141 mg/dL (<200); HDL CHOLESTEROL 28 mg/dL (>65); T4 FREE 1.26 ng/dL (0.89-1.76)
[2024-03-07 06:44] LABS: HEMATOCRIT. 31.4 % (36.0-48.0); HEMOGLOBIN. 9.5 g/dL (12.0-16.0); MEAN CORPUSCULAR HEMOGLOBIN 22.8 pg (28.0-32.0); MEAN CORPUSCULAR HGB CONC 30.3 g/dL (31.0-37.0); MEAN CORPUSCULAR VOLUME 75.3 fL (81.0-99.0); MEAN PLATELET VOLUME 7.7 fl (7.4-10.4); PLATELET 422 x1000/uL (130-400); RED BLOOD CELL COUNT 4.18 mill/uL (4.2-5.4); WHITE BLOOD COUNT 11.4 x1000/uL (4.5-11.0)
[2024-03-07 07:06] LABS: DIFFERENTIAL COMMENT 1
[2024-03-07] MEDS: MONTELUKAST SODIUM 10MG TABLET PO SCH (07:30)
[2024-03-07] MEDS ORDERED: METHYLPREDNISOLONE SOD SUCC 40MG/ML (ACT-O-VIAL) IV SCH (07:30)
[2024-03-07] MEDS: LORATADINE 10MG TABLET PO SCH (07:30)
[2024-03-07] MEDS ORDERED: IPRATROPIUM/ALBUTEROL 0.5-3(2.5)MG/3ML NEB HHN SCH (08:00)
[2024-03-07] MEDS: POTASSIUM CHLORIDE 20MEQ TABLET SR PO SCH (09:29)
[2024-03-07] MEDS: FAMOTIDINE 20MG TABLET PO SCH (09:29)
[2024-03-07] MEDS: NITROGLYCERIN 0.4MG TABLET SL SL PRN (09:33)
[2024-03-07] MEDS: METHYLPREDNISOLONE SOD SUCC 125MG/2ML (ACT-O-VIAL) IV SCH (12:40)
[2024-03-07] MEDS: FLUTICASONE PROPIONATE 50MCG/SPRAY BOTTLE BOTHNSTRLS SCH (14:06)
[2024-03-07 15:34] LABS: PLATELET ESTIMATE NORMAL
[2024-03-07 15:59] LABS: CLARITY URINE CLEAR (CLEAR); COLOR URINE YELLOW (YELLOW); GLUCOSE URINE NEGATIVE (NEGATIVE); KETONES URINE NEGATIVE (NEGATIVE); LEUKOCYTE ESTERASE URINE NEGATIVE (NEGATIVE); NITRITE URINE NEGATIVE (NEGATIVE); OCCULT BLOOD URINE NEGATIVE (NEGATIVE); PH URINE 7.5 (4.5-8.0); PROTEIN URINE NEGATIVE (NEGATIVE); SPECIFIC GRAVITY URINE 1.004 (1.005-1.030)
[2024-03-07 16:31] LABS: *AMPHETAMINES SCREEN URINE NEGATIVE (NEGATIVE); *BARBITURATES SCREEN URINE NEGATIVE (NEGATIVE); *BENZODIAZEPINES SCREEN URINE NEGATIVE (NEGATIVE); *COCAINE SCREEN URINE NEGATIVE (NEGATIVE); CANNABINOID URINE SCREEN PRESUMPTIVE POSITIVE (NEGATIVE); ECSTASY MDMA SCREEN URINE NEGATIVE (NEGATIVE); METHADONE URINE SCREEN NEGATIVE (NEGATIVE); OPIATES URINE SCREEN PRESUMPTIVE POSITIVE (NEGATIVE); PHENCYCLIDINE URINE SCREEN NEGATIVE (NEGATIVE)
[2024-03-07 17:41] LABS: BACTERIA URINE TRACE; RBC URINE 0-2 /hpf (0-2); SQUAMOUS EPITHELIAL CELL URINE FEW /lpf (RARE/1+); WBC URINE 0-2 /hpf (0-2)
[2024-03-07] MEDS ORDERED: NALOXONE HCL 0.4MG/ML VIAL IV PRN (23:00)
[2024-03-08] VITALS (10 sets, daily range): BP systolic 97–125; BP diastolic 53–73; PULSE 77–110; RESP 18–20; TEMP 35.78064–36.55848; O2SAT 94–97
[2024-03-08] MEDS: CEFTRIAXONE 1GM/50ML 50 ML IV SCH (09:31)
[2024-03-08] MEDS ORDERED: IBUPROFEN 400MG TABLET PO PRN (13:00)
[2024-03-08] MEDS ORDERED: METHYLPREDNISOLONE SOD SUCC 40MG/ML (ACT-O-VIAL) IV SCH (13:00)
[2024-03-08 13:26] LABS: HEMATOCRIT. 35.9 % (36.0-48.0); HEMOGLOBIN. 10.4 g/dL (12.0-16.0); MEAN CORPUSCULAR HEMOGLOBIN 22.2 pg (28.0-32.0); MEAN CORPUSCULAR VOLUME 76.5 fL (81.0-99.0); MEAN PLATELET VOLUME 7.5 fl (7.4-10.4); PLATELET 414 x1000/uL (130-400); RED BLOOD CELL COUNT 4.69 mill/uL (4.2-5.4); RED CELL DISTRIBUTION WIDTH 19.7 % (11.6-14.6); WHITE BLOOD COUNT 13.5 x1000/uL (4.5-11.0)
[2024-03-08 13:29] LABS: DIFFERENTIAL COMMENT 1
[2024-03-08 13:49] LABS: CHLORIDE 98 mEq/L (98-107); POTASSIUM 4.2 mEq/L (3.5-5.1); SODIUM 137 mEq/L (136-145)
[2024-03-08 13:50] LABS: CARBON DIOXIDE 33 mEq/L (21-32)
[2024-03-08 13:51] LABS: CALCIUM 9.3 mg/dL (8.7-10.4)
[2024-03-08 13:55] LABS: CREATININE 0.6 mg/dL (0.6-1.0); GLUCOSE 99 mg/dL (70-105); UREA NITROGEN BLOOD 9 mg/dL (9-23)
[2024-03-08] MEDS: KETOROLAC 15MG/ML VIAL IV PRN (13:57)
[2024-03-08] MEDS: PREDNISONE 20MG TABLET PO SCH (13:57)
[2024-03-08 14:40] LABS: ANISOCYTOSIS 2+; HYPOCHROMASIA 1+; MICROCYTOSIS 1+; PLATELET ESTIMATE SLIGHTLY INCREASED
[2024-03-08] MEDS: ACETAMINOPHEN 650MG/20.3ML UDC GT PRN (18:12)
[2024-03-09] VITALS (10 sets, daily range): BP systolic 122–139; BP diastolic 75–96; PULSE 76–107; RESP 18–20; TEMP 35.78064–36.6696; O2SAT 95–99
[2024-03-09] MEDS: ACETAMINOPHEN 650MG/20.3ML UDC GT PRN (05:12)
[2024-03-09] MEDS: HYDROCODONE/ACETAMINOPHEN 5/325MG TABLET PO PRN (16:31)
[2024-03-09] MEDS: IBUPROFEN 400MG TABLET PO SCH (18:00)
[2024-03-09] MEDS: ACETAMINOPHEN 650MG/20.3ML UDC PO SCH (18:00)
[2024-03-10] VITALS (13 sets, daily range): BP systolic 120–139; BP diastolic 67–91; PULSE 78–111; RESP 18–20; TEMP 35.72508–37.11408; O2SAT 93–100
[2024-03-11] VITALS (9 sets, daily range): BP systolic 122–154; BP diastolic 68–96; PULSE 85–107; RESP 18–20; TEMP 36.114–36.72516; O2SAT 97–100
[2024-03-11 06:29] LABS: CARBON DIOXIDE 29 mEq/L (21-32); CHLORIDE 103 mEq/L (98-107); SODIUM 140 mEq/L (136-145)
[2024-03-11 06:30] LABS: CALCIUM 8.7 mg/dL (8.7-10.4)
[2024-03-11 06:33] LABS: CREATININE 0.7 mg/dL (0.6-1.0)
[2024-03-11 06:35] LABS: GLUCOSE 197 mg/dL (70-105); UREA NITROGEN BLOOD 10 mg/dL (9-23)
[2024-03-11 06:37] LABS: PHOSPHORUS 1.6 mg/dL (2.5-4.9)
[2024-03-11 06:42] LABS: POTASSIUM 2.4 mEq/L (3.5-5.1)
[2024-03-11 07:02] LABS: BASOPHILS % 0.1 % (0.0-2.0); DIFFERENTIAL COMMENT 0; EOSINOPHILS % 0.2 % (0.0-5.0); HEMATOCRIT. 31.2 % (36.0-48.0); HEMOGLOBIN. 9.4 g/dL (12.0-16.0); LYMPHOCYTES % 8.7 % (20.0-50.0); MEAN CORPUSCULAR HEMOGLOBIN 22.5 pg (28.0-32.0); MEAN CORPUSCULAR VOLUME 74.9 fL (81.0-99.0); MEAN PLATELET VOLUME 7.8 fl (7.4-10.4); MONOCYTES % 12.1 % (2.0-8.0); NEUTROPHILS % 78.9 % (40.0-76.0); PLATELET 360 x1000/uL (130-400); RED BLOOD CELL COUNT 4.16 mill/uL (4.2-5.4); RED CELL DISTRIBUTION WIDTH 19.5 % (11.6-14.6); WHITE BLOOD COUNT 16.9 x1000/uL (4.5-11.0)
[2024-03-11] MEDS ORDERED: KCL 20MEQ/100ML PREMIX 100 ML IV SCH (08:15)
[2024-03-11] MEDS ORDERED: POTASSIUM CHLORIDE 20 MEQ in DEXT 5% WATER 240 ML IV SCH (09:00)
[2024-03-11] MEDS: POTASSIUM CHLORIDE 40 MEQ in DEXT 5% WATER 230 ML IV SCH (11:31)
[2024-03-12] VITALS: BP 133/72; PULSE 105; RESP 20; TEMP 36.72516; O2SAT 100
[2024-03-12 04:30] VITALS: BP 129/78; PULSE 96; RESP 18; TEMP 36.50292; O2SAT 100
[2024-03-12 05:56] LABS: BASOPHILS % 0.1 % (0.0-2.0); DIFFERENTIAL COMMENT 0; EOSINOPHILS % 0.8 % (0.0-5.0); HEMATOCRIT. 31.6 % (36.0-48.0); HEMOGLOBIN. 9.5 g/dL (12.0-16.0); LYMPHOCYTES % 11.4 % (20.0-50.0); MEAN CORPUSCULAR HEMOGLOBIN 22.3 pg (28.0-32.0); MEAN CORPUSCULAR HGB CONC 29.9 g/dL (31.0-37.0); MEAN CORPUSCULAR VOLUME 74.5 fL (81.0-99.0); MEAN PLATELET VOLUME 7.8 fl (7.4-10.4); MONOCYTES % 10.9 % (2.0-8.0); NEUTROPHILS % 76.8 % (40.0-76.0); PLATELET 367 x1000/uL (130-400); RED BLOOD CELL COUNT 4.25 mill/uL (4.2-5.4); RED CELL DISTRIBUTION WIDTH 19.9 % (11.6-14.6); WHITE BLOOD COUNT 17.7 x1000/uL (4.5-11.0)
[2024-03-12 06:14] LABS: CARBON DIOXIDE 35 mEq/L (21-32); CHLORIDE 100 mEq/L (98-107); POTASSIUM 3.2 mEq/L (3.5-5.1); SODIUM 140 mEq/L (136-145)
[2024-03-12 06:15] LABS: CALCIUM 9.1 mg/dL (8.7-10.4)
[2024-03-12 06:20] LABS: CREATININE 0.6 mg/dL (0.6-1.0); GLUCOSE 95 mg/dL (70-105); UREA NITROGEN BLOOD 13 mg/dL (9-23)
[2024-03-12 08:00] VITALS: BP 130/77; PULSE 99; RESP 20; TEMP 36.55848; O2SAT 100
[2024-03-12 12:00] VITALS: BP 128/70; PULSE 86; RESP 18; TEMP 36.50292; O2SAT 100
[2024-03-12 13:34] VITALS: PULSE 111; RESP 18; O2SAT 97
[2024-03-12] MEDS: IPRATROPIUM/ALBUTEROL 0.5-3(2.5)MG/3ML NEB HHN PRN (13:34)
[2024-03-12] MEDS ORDERED: ALBU18HF2 IH (13:49)
[2024-03-12] MEDS ORDERED: BUDE6HFA INH (13:49)
[2024-03-12] MEDS ORDERED: IBUP-2028 PO (13:49)
[2024-03-12] MEDS ORDERED: MONT-46 PO (13:49)
[2024-03-12] MEDS ORDERED: LIP40 PO (13:49)
[2024-03-12] MEDS ORDERED: P20 PO (13:49)
[2024-03-12] MEDS ORDERED: TOPUD MT (13:49)
[2024-03-12 16:00] VITALS: BP 133/80; PULSE 88; RESP 20; TEMP 36.3918; TEMP 36.39180; O2SAT 100
== END 2024-03-12 18:30 | disposition home or self-care (01) | DRG 133 ==
LOC: ER 22:14 → MICUSO 23:08 → 5WST 03-06 12:03 → 7EST 03-07 08:39
PROVIDERS: ADMIT Internal Medicine; ATTEND Internal Medicine
DX: J96.01 Acute respiratory failure with hypoxia (principal); I21.A1 Myocardial infarction type 2; I50.43 Acute on chronic combined systolic (congestive) and diastolic (congestive) heart failure; J18.9 Pneumonia, unspecified organism; J44.0 Chronic obstructive pulmonary disease with (acute) lower respiratory infection; J45.901 Unspecified asthma with (acute) exacerbation; I11.0 Hypertensive heart disease with heart failure; J98.4 Other disorders of lung; Z20.822 Contact with and (suspected) exposure to COVID-19; J44.1 Chronic obstructive pulmonary disease with (acute) exacerbation; I20.9 Angina pectoris, unspecified; E87.6 Hypokalemia; D64.9 Anemia, unspecified; E80.6 Other disorders of bilirubin metabolism; D72.829 Elevated white blood cell count, unspecified; E78.5 Hyperlipidemia, unspecified; I10 Essential (primary) hypertension; Z79.82 Long term (current) use of aspirin; Z87.891 Personal history of nicotine dependence; Z79.899 Other long term (current) drug therapy
CPT/HCPCS: 36415; 36600; 71045; 80048; 80061; 80076; 80305; 81003; 82375; 82550; 82607; 82728; 82746; 82805; 83540; 83550; 83605; 83735; 84100; 84145; 84439; 84443; 84484; 85025; 86705; 86709; 87340; 87426; 93005; 93306; 94640; 97165; 99285; J0456; J0696; J1650; J1885; J1940; J2270; J2919; J3475; J3480; J7030; J7060; J7512

== ENCOUNTER 2024-05-09 13:14 | Emergency (ER) | payer MEDICAID ==
[~2024-05-09] VITALS: Ht 33 cm; Wt 0.5 kg
[~2024-05-09 13:14] MED LIST changes: +ALBU18HF2 IH; -ALBU6.7H3 INH; +AMLO10TA80 PO; -AMLO5TAB88 PO; +AZIT500T8 PO; +BUDE6HFA INH; +FERR-63 PO; -FLUT1DIS3 INH; +IBUP-2028 PO; -P20 PO; +TOPUD MT
[2024-05-09] MEDS ORDERED: IPRATROPIUM/ALBUTEROL 0.5-3(2.5)MG/3ML NEB HHN ONE (13:30)
[2024-05-09] MEDS ORDERED: DEXAMETHASONE 2MG TABLET PO ONE (13:30)
[2024-05-09 13:42] VITALS: PULSE 85; RESP 18; O2SAT 96
[2024-05-09] MEDS: IPRATROPIUM/ALBUTEROL 0.5-3(2.5)MG/3ML NEB HHN ONE (13:45)
[2024-05-09] MEDS: DEXAMETHASONE 4MG TABLET PO NR (15:03)
[2024-05-09] MEDS ORDERED: ACET-2708 MT (15:43)
[2024-05-09] MEDS ORDERED: IBUP-2028 PO (15:43)
[2024-05-09] MEDS ORDERED: DEXAMETHASONE 4MG TABLET PO NR (15:45)
[2024-05-09 15:55] VITALS: BP 145/88; PULSE 90; RESP 18; TEMP 36.9; O2SAT 96
== END 2024-05-09 15:57 | disposition home or self-care (01) ==
LOC: ER 13:14
DX: J45.901 Unspecified asthma with (acute) exacerbation (principal); Z79.51 Long term (current) use of inhaled steroids; Z79.899 Other long term (current) drug therapy
CPT/HCPCS: 71045; 94640; 99283; J8540; Z7610 ×3

== ENCOUNTER 2024-05-09 23:12 | Inpatient (IN) | payer MEDICAID, OTHER ==
[~2024-05-09] VITALS: Ht 154.9 cm; Wt 80.7 kg
[~2024-05-09 23:12] MED LIST changes: +ACET-2708 MT
[2024-05-10] VITALS (20 sets, daily range): BP systolic 128–155; BP diastolic 88–108; PULSE 94–150; RESP 17–30; TEMP 37.1; O2SAT 94–100
[2024-05-10] MEDS: METHYLPREDNISOLONE SOD SUCC 125MG/2ML (ACT-O-VIAL) IV STA (00:35)
[2024-05-10] MEDS: MAGNESIUM 2 G PREMIX 50 ML IV ONE (00:35)
[2024-05-10] MEDS: DIAZEPAM 5 MG/ML 2ML SYR IV ONE ×2 (01:02→02:03)
[2024-05-10] MEDS: IPRATROPIUM/ALBUTEROL 0.5-3(2.5)MG/3ML NEB HHN ONE (01:27)
[2024-05-10 01:30] LABS: HEMATOCRIT. 39.2 % (36.0-48.0); HEMOGLOBIN. 12.2 g/dL (12.0-16.0); MEAN CORPUSCULAR HEMOGLOBIN 25.5 pg (28.0-32.0); MEAN CORPUSCULAR HGB CONC 31.2 g/dL (31.0-37.0); MEAN CORPUSCULAR VOLUME 81.9 fL (81.0-99.0); MEAN PLATELET VOLUME 8.5 fl (7.4-10.4); PLATELET 342 x1000/uL (130-400); RED BLOOD CELL COUNT 4.78 mill/uL (4.2-5.4); RED CELL DISTRIBUTION WIDTH 24.4 % (11.6-14.6); WHITE BLOOD COUNT 10.4 x1000/uL (4.5-11.0)
[2024-05-10 01:43] LABS: CHLORIDE 106 mEq/L (98-107); POTASSIUM 4.8 mEq/L (3.5-5.1); SODIUM 144 mEq/L (136-145)
[2024-05-10 01:44] LABS: CARBON DIOXIDE 31 mEq/L (21-32)
[2024-05-10 01:49] LABS: CREATININE 0.8 mg/dL (0.6-1.0); GLUCOSE 125 mg/dL (70-105); UREA NITROGEN BLOOD 14 mg/dL (9-23)
[2024-05-10 01:50] LABS: TROPONIN I HIGH SENSITIVITY 5 ng/L (3.0-34)
[2024-05-10 01:54] LABS: DIFFERENTIAL COMMENT 1
[2024-05-10] MEDS: SODIUM CHLORIDE 0.9% 500 ML IV ONE (02:03)
[2024-05-10 02:11] LABS: HCG SCREEN NEGATIVE
[2024-05-10 02:41] LABS: D-DIMER 0.86 mg/L FEU (<0.50); INR 0.9; PROTHROMBIN TIME 9.9 sec (9.6-11.0)
[2024-05-10] MEDS ORDERED: IPRATROPIUM/ALBUTEROL 0.5-3(2.5)MG/3ML NEB HHN PRN (02:45)
[2024-05-10] MEDS ORDERED: DIAZEPAM 2 MG TABLET PO PRN (03:15)
[2024-05-10] MEDS: MORPHINE SULFATE 2 MG/ML INJ (NOT FOR IM USE) IV ONE (03:28)
[2024-05-10] MEDS: CEFTRIAXONE 2GM/50ML 50 ML IV ONE (03:28)
[2024-05-10] MEDS: AZITHROMYCIN 500MG/250ML 250 ML IV STA (03:29)
[2024-05-10] MEDS: AZITHROMYCIN 500MG/250ML 250 ML IV NR (03:46)
[2024-05-10] MEDS: METHYLPREDNISOLONE SOD SUCC 125MG/2ML (ACT-O-VIAL) IV SCH (03:46)
[2024-05-10] MEDS: BUDESONIDE 0.5MG/2ML NEB HHN SCH (03:55)
[2024-05-10] MEDS: IPRATROPIUM/ALBUTEROL 0.5-3(2.5)MG/3ML NEB HHN SCH ×2 (03:56→08:00)
[2024-05-10] MEDS: ALBUTEROL (0.083%) 2.5MG/3ML NEB HHN ONE (03:56)
[2024-05-10] MEDS: CLONIDINE 0.1MG TABLET PO PRN (04:30)
[2024-05-10 05:02] LABS: ANISOCYTOSIS 3+; PLATELET ESTIMATE NORMAL
[2024-05-10 05:03] LABS: HYPOCHROMASIA 1+
[2024-05-10] MEDS: MORPHINE SULFATE 2 MG/ML INJ (NOT FOR IM USE) IV NR (05:10)
[2024-05-10] MEDS ORDERED: NICARDIPINE 100 MG in SODIUM CHLORIDE 0.9% 60 ML IV PRN (05:15)
[2024-05-10 06:12] LABS: BG BASE EXCESS -5.1 mmol/L (-2.0-3.0); BG CARBOXYHEMOGLOBIN 1.1 % (0.5-1.5); BG DEOXYHEMOGLOBIN 18.5 % (0.0-5.0); BG FRACTION INSPIRED OXYGEN 40; BG HCO3 ACT 29.9 mmol/L (21.0-28.0); BG METHEMOGLOBIN 0.1 % (0.5-1.5); BG OXYGEN SATURATION 81.3 % (94.0-98.0); BG OXYHEMOGLOBIN 80.3 % (94.0-98.0); BG PCO2 132.2 mmHg (32.0-45.0); BG PH 6.972 (7.350-7.450); BG PO2 68.2 mmHg (83.0-108.0); BG SAMPLE SITE RIGHT RADIAL; BG TOTAL HEMOGLOBIN 13.1 g/dL (12.0-16.0); BG VENT MODE MASK - BIPAP
[2024-05-10] MEDS: NICARDIPINE 100 MG in SODIUM CHLORIDE 0.9% 60 ML IV PRN (06:24)
[2024-05-10] MEDS: DIAZEPAM 5 MG/ML 2ML SYR IV NR (06:25)
[2024-05-10] MEDS: AMLODIPINE 10MG TABLET PO SCH (06:26)
[2024-05-10] MEDS ORDERED: FENTANYL 2500MCG/250ML PMX 250 ML IV PRN (06:30)
[2024-05-10] MEDS: PROPOFOL 10MG/ML 100ML 100 ML IV PRN ×2 (06:59→10:53)
[2024-05-10] MEDS: MIDAZOLAM HCL 2 MG/2 ML VIAL IV NR (06:59)
[2024-05-10] MEDS ORDERED: FENTANYL 2500MCG/250ML PMX 250 ML IV ONE (07:45)
[2024-05-10] MEDS: ENOXAPARIN 30MG/0.3ML SYR SUBCUT SCH (08:50)
[2024-05-10] MEDS: FENTANYL CITRATE 1,000 MCG in SODIUM CHLORIDE 0.9% 80 ML IV PRN (08:51)
[2024-05-10] MEDS ORDERED: AMLODIPINE 10MG TABLET PO SCH (09:00)
[2024-05-10] MEDS ORDERED: PANTOPRAZOLE SODIUM 40 MG/VIAL IV SCH (09:00)
[2024-05-10] MEDS ORDERED: THIAMINE HCL 100MG TABLET PO SCH (09:00)
[2024-05-10 10:12] LABS: BG BASE EXCESS -4.2 mmol/L (-2.0-3.0); BG CARBOXYHEMOGLOBIN 0.2 % (0.5-1.5); BG DEOXYHEMOGLOBIN 0.3 % (0.0-5.0); BG FRACTION INSPIRED OXYGEN 100; BG HCO3 ACT 23.5 mmol/L (21.0-28.0); BG METHEMOGLOBIN 0.1 % (0.5-1.5); BG OXYGEN SATURATION 99.7 % (94.0-98.0); BG OXYHEMOGLOBIN 99.4 % (94.0-98.0); BG PCO2 55.3 mmHg (32.0-45.0); BG PH 7.247 (7.350-7.450); BG PO2 472.4 mmHg (83.0-108.0); BG SAMPLE SITE RIGHT BRACHIAL; BG TOTAL HEMOGLOBIN 11.7 g/dL (12.0-16.0); BG VENT MODE VENT - P/C
[2024-05-10] MEDS: LACTATED RINGERS 1,000 ML IV SCH (14:22)
[2024-05-10 15:40] LABS: PHOSPHORUS 7.1 mg/dL (2.5-4.9)
[2024-05-10] MEDS: LORATADINE 10MG TABLET PO SCH (18:43)
[2024-05-10] MEDS: MONTELUKAST SODIUM 10MG TABLET PO SCH (18:43)
[2024-05-10] MEDS: FAMOTIDINE 20MG TABLET PO SCH (18:43)
[2024-05-10] MEDS: ATORVASTATIN CALCIUM 40MG TABLET PO SCH (22:04)
[2024-05-10] MEDS: CEFTRIAXONE 1GM/50ML 50 ML IV SCH (23:33)
[2024-05-10] MEDS: ONDANSETRON HCL 4MG/2ML INJ IV PRN (23:44)
[2024-05-11] VITALS (106 sets, daily range): BP systolic 99–168; BP diastolic 61–141; PULSE 74–131; RESP 13–32; TEMP 36.6–37.1; O2SAT 92–100
[2024-05-11] MEDS ORDERED: DEXTROSE 50% WATER 50ML SYRINGE IV PRN (00:15)
[2024-05-11] MEDS: INSULIN LISPRO 100 UNITS/ML SUBCUT SCH (00:15)
[2024-05-11] MEDS: BLOOD SUGAR DIAGNOSTIC STRIP TEST SCH (00:42)
[2024-05-11] MEDS: FUROSEMIDE 40MG/4ML VIAL ONE (01:01)
[2024-05-11] MEDS: FUROSEMIDE 40MG/4ML VIAL IVP NR (01:03)
[2024-05-11] MEDS: AZITHROMYCIN 500 MG in DEXT 5% WATER 250 ML IV SCH (01:03)
[2024-05-11 01:49] LABS: CLARITY URINE CLEAR (CLEAR); COLOR URINE YELLOW (YELLOW); GLUCOSE URINE NEGATIVE (NEGATIVE); KETONES URINE NEGATIVE (NEGATIVE); LEUKOCYTE ESTERASE URINE NEGATIVE (NEGATIVE); NITRITE URINE NEGATIVE (NEGATIVE); OCCULT BLOOD URINE NEGATIVE (NEGATIVE); PH URINE 5.5 (4.5-8.0); PROTEIN URINE 1+ (NEGATIVE); SPECIFIC GRAVITY URINE 1.019 (1.005-1.030); UROBILINOGEN URINE 0.2 E.U./dL (0.2-1.0)
[2024-05-11 02:30] LABS: BACTERIA URINE NONE SEEN; RBC URINE 0-2 /hpf (0-2); SQUAMOUS EPITHELIAL CELL URINE FEW /lpf (RARE/1+)
[2024-05-11] MEDS ORDERED: AZITHROMYCIN 500 MG in DEXT 5% WATER 250 ML IV SCH (06:00)
[2024-05-11 08:02] LABS: POTASSIUM 5.2 mEq/L (3.5-5.1)
[2024-05-11 08:03] LABS: CALCIUM 9.1 mg/dL (8.7-10.4)
[2024-05-11 08:04] LABS: HEMATOCRIT. 33.5 % (36.0-48.0); HEMOGLOBIN. 10.1 g/dL (12.0-16.0); MEAN CORPUSCULAR HEMOGLOBIN 24.8 pg (28.0-32.0); MEAN CORPUSCULAR HGB CONC 30.1 g/dL (31.0-37.0); MEAN CORPUSCULAR VOLUME 82.4 fL (81.0-99.0); MEAN PLATELET VOLUME 8.6 fl (7.4-10.4); PLATELET 292 x1000/uL (130-400); RED BLOOD CELL COUNT 4.06 mill/uL (4.2-5.4); RED CELL DISTRIBUTION WIDTH 23.8 % (11.6-14.6); WHITE BLOOD COUNT 13.7 x1000/uL (4.5-11.0)
[2024-05-11 08:12] LABS: T4 FREE 1.11 ng/dL (0.89-1.76); THYROID STIMULATING HORMONE 0.35 uIU/mL (0.55-4.78)
[2024-05-11 08:33] LABS: DIFFERENTIAL COMMENT 1
[2024-05-11 09:31] LABS: CREATININE 1.6 mg/dL (0.6-1.0)
[2024-05-11 10:21] LABS: BG BASE EXCESS 2.3 mmol/L (-2.0-3.0); BG CARBOXYHEMOGLOBIN 0.7 % (0.5-1.5); BG DEOXYHEMOGLOBIN 11.4 % (0.0-5.0); BG FRACTION INSPIRED OXYGEN 30; BG HCO3 ACT 30.3 mmol/L (21.0-28.0); BG METHEMOGLOBIN 0.3 % (0.5-1.5); BG OXYGEN SATURATION 88.5 % (94.0-98.0); BG OXYHEMOGLOBIN 87.6 % (94.0-98.0); BG PH 7.286 (7.350-7.450); BG PO2 59.9 mmHg (83.0-108.0); BG SAMPLE SITE ALINE; BG TOTAL HEMOGLOBIN 11.3 g/dL (12.0-16.0); BG VENT MODE VENT - AC
[2024-05-11] MEDS: SODIUM POLYSTYRENE SULFONATE 15 G/60 ML BOT PO SCH (10:22)
[2024-05-11] MEDS: PROPOFOL 10MG/ML 100ML 100 ML IV PRN (10:33)
[2024-05-11] MEDS: CEFTRIAXONE 1GM/50ML 50 ML IV SCH (17:17)
[2024-05-12] VITALS (102 sets, daily range): BP systolic 101–162; BP diastolic 53–107; PULSE 59–135; RESP 14–28; TEMP 36.6–37.1; O2SAT 98–100
[2024-05-12 07:04] LABS: POTASSIUM 4.2 mEq/L (3.5-5.1)
[2024-05-12 07:06] LABS: CALCIUM 9.2 mg/dL (8.7-10.4)
[2024-05-12 07:10] LABS: CREATININE 1.4 mg/dL (0.6-1.0)
[2024-05-12] MEDS: ENOXAPARIN 30MG/0.3ML SYR SUBCUT SCH (08:27)
[2024-05-12 09:01] LABS: BG CARBOXYHEMOGLOBIN 0.4 % (0.5-1.5); BG DEOXYHEMOGLOBIN 3.3 % (0.0-5.0); BG FRACTION INSPIRED OXYGEN 30; BG METHEMOGLOBIN 0.3 % (0.5-1.5); BG OXYGEN SATURATION 96.7 % (94.0-98.0); BG PCO2 52.9 mmHg (32.0-45.0); BG PH 7.386 (7.350-7.450); BG PO2 90.2 mmHg (83.0-108.0); BG SAMPLE SITE LEFT RADIAL; BG TOTAL HEMOGLOBIN 10.8 g/dL (12.0-16.0); BG TOTAL RESPIRATORY RATE 26 b/min; BG VENT MODE VENT-PRVC
[2024-05-12] MEDS: DEXT 5%/LACTATED RINGERS 1,000 ML IV SCH (10:10)
[2024-05-12] MEDS: PROPOFOL 10MG/ML 100ML 100 ML IV PRN (13:25)
[2024-05-12] MEDS: THEOPHYLLINE ANHYDROUS 80MG/15ML ORAL SYR PO SCH (17:05)
[2024-05-12 17:35] LABS: ANISOCYTOSIS 2+; PLATELET ESTIMATE NORMAL
[2024-05-12 17:36] LABS: HYPOCHROMASIA 1+
[2024-05-12] MEDS: AZITHROMYCIN 500 MG in SODIUM CHLORIDE 0.9% 250 ML IV SCH (23:32)
[2024-05-13] VITALS (110 sets, daily range): BP systolic 109–205; BP diastolic 55–115; PULSE 60–153; RESP 13–32; TEMP 36.8–37.1; O2SAT 99–100
[2024-05-13 08:26] LABS: HEMATOCRIT 33.1 % (36.0-48.0); HEMOGLOBIN 10.2 g/dL (12.0-16.0); MEAN CORPUSCULAR HEMOGLOBIN 25.7 pg (28.0-32.0); MEAN CORPUSCULAR HGB CONC 30.8 g/dL (31.0-37.0); MEAN CORPUSCULAR VOLUME 83.5 fL (81.0-99.0); PLATELET 264 x1000/uL (130-400); RED BLOOD CELL COUNT 3.97 mill/uL (4.2-5.4); RED CELL DISTRIBUTION WIDTH 23.2 % (11.6-14.6); WHITE BLOOD COUNT 16.1 x1000/uL (4.5-11.0)
[2024-05-13 08:47] LABS: CHLORIDE 104 mEq/L (98-107); POTASSIUM 4.2 mEq/L (3.5-5.1); SODIUM 142 mEq/L (136-145)
[2024-05-13 08:48] LABS: CARBON DIOXIDE 28 mEq/L (21-32)
[2024-05-13 08:49] LABS: CALCIUM 9.4 mg/dL (8.7-10.4)
[2024-05-13 08:54] LABS: GLUCOSE 154 mg/dL (70-105); TRIGLYCERIDE 131 mg/dL (0-150); UREA NITROGEN BLOOD 24 mg/dL (9-23)
[2024-05-13 09:00] LABS: BG BASE EXCESS 6.4 mmol/L (-2.0-3.0); BG CARBOXYHEMOGLOBIN 0.2 % (0.5-1.5); BG DEOXYHEMOGLOBIN 3.3 % (0.0-5.0); BG FRACTION INSPIRED OXYGEN 30; BG HCO3 ACT 32.8 mmol/L (21.0-28.0); BG OXYGEN SATURATION 96.7 % (94.0-98.0); BG OXYHEMOGLOBIN 96.5 % (94.0-98.0); BG PCO2 56.8 mmHg (32.0-45.0); BG PH 7.379 (7.350-7.450); BG PO2 88.2 mmHg (83.0-108.0); BG SAMPLE SITE RIGHT RADIAL; BG TOTAL HEMOGLOBIN 10.8 g/dL (12.0-16.0); BG VENT MODE VENT - PRVC
[2024-05-13] MEDS: MIDAZOLAM 100MG/100ML PMX 100 ML IV PRN (14:40)
[2024-05-13] MEDS: METHYLPREDNISOLONE SOD SUCC 125MG/2ML (ACT-O-VIAL) IV SCH (21:24)
[2024-05-14] VITALS (103 sets, daily range): BP systolic 119–173; BP diastolic 64–100; PULSE 58–124; RESP 12–30; TEMP 36.7–37.1; O2SAT 98–100
[2024-05-14 06:38] LABS: CHLORIDE 103 mEq/L (98-107); POTASSIUM 4.5 mEq/L (3.5-5.1); SODIUM 142 mEq/L (136-145)
[2024-05-14 06:39] LABS: CARBON DIOXIDE 32 mEq/L (21-32)
[2024-05-14 06:40] LABS: CALCIUM 9.4 mg/dL (8.7-10.4)
[2024-05-14 06:44] LABS: GLUCOSE 142 mg/dL (70-105); UREA NITROGEN BLOOD 28 mg/dL (9-23)
[2024-05-14 07:41] LABS: HEMOGLOBIN 9.8 g/dL (12.0-16.0); MEAN CORPUSCULAR HEMOGLOBIN 25.3 pg (28.0-32.0); MEAN CORPUSCULAR HGB CONC 30.5 g/dL (31.0-37.0); MEAN CORPUSCULAR VOLUME 82.8 fL (81.0-99.0); PLATELET 261 x1000/uL (130-400); RED BLOOD CELL COUNT 3.86 mill/uL (4.2-5.4)
[2024-05-14 08:21] LABS: BG BASE EXCESS 7.1 mmol/L (-2.0-3.0); BG CARBOXYHEMOGLOBIN 0.2 % (0.5-1.5); BG DEOXYHEMOGLOBIN 1.2 % (0.0-5.0); BG FRACTION INSPIRED OXYGEN 40; BG HCO3 ACT 35.4 mmol/L (21.0-28.0); BG METHEMOGLOBIN 0.3 % (0.5-1.5); BG OXYGEN SATURATION 98.8 % (94.0-98.0); BG OXYHEMOGLOBIN 98.3 % (94.0-98.0); BG PCO2 73.7 mmHg (32.0-45.0); BG PO2 130.6 mmHg (83.0-108.0); BG SAMPLE SITE RIGHT RADIAL; BG TOTAL HEMOGLOBIN 10.7 g/dL (12.0-16.0); BG VENT MODE VENT - APRV
[2024-05-14] MEDS ORDERED: DEXTROSE 50% WATER 50ML SYRINGE IV PRN (09:45)
[2024-05-14] MEDS: INSULIN LISPRO 100 UNITS/ML SUBCUT SCH (12:00)
[2024-05-14] MEDS: DOCUSATE SODIUM 100MG CAPSULE PO PRN (14:07)
[2024-05-14] MEDS: METHYLPREDNISOLONE SOD SUCC 125MG/2ML (ACT-O-VIAL) IV SCH (14:08)
[2024-05-14 15:34] LABS: BG BASE EXCESS 4.9 mmol/L (-2.0-3.0); BG CARBOXYHEMOGLOBIN 0.3 % (0.5-1.5); BG DEOXYHEMOGLOBIN 0.8 % (0.0-5.0); BG FRACTION INSPIRED OXYGEN 40; BG HCO3 ACT 31.9 mmol/L (21.0-28.0); BG METHEMOGLOBIN 0.3 % (0.5-1.5); BG OXYGEN SATURATION 99.2 % (94.0-98.0); BG OXYHEMOGLOBIN 98.6 % (94.0-98.0); BG PCO2 59.9 mmHg (32.0-45.0); BG PH 7.344 (7.350-7.450); BG PO2 136.2 mmHg (83.0-108.0); BG SAMPLE SITE RIGHT RADIAL; BG TOTAL HEMOGLOBIN 10.8 g/dL (12.0-16.0); BG VENT MODE VENT - PRVC
[2024-05-15] VITALS (104 sets, daily range): BP systolic 111–182; BP diastolic 65–100; PULSE 60–126; RESP 21–25; TEMP 36.9–37; O2SAT 97–100
[2024-05-15 07:01] LABS: CHLORIDE 103 mEq/L (98-107); POTASSIUM 4.6 mEq/L (3.5-5.1); SODIUM 142 mEq/L (136-145)
[2024-05-15 07:02] LABS: CALCIUM 9.6 mg/dL (8.7-10.4); CARBON DIOXIDE 33 mEq/L (21-32)
[2024-05-15 07:06] LABS: CREATININE 0.9 mg/dL (0.6-1.0)
[2024-05-15 07:07] LABS: GLUCOSE 166 mg/dL (70-105); UREA NITROGEN BLOOD 31 mg/dL (9-23)
[2024-05-15 08:14] LABS: HEMATOCRIT 31.9 % (36.0-48.0); HEMOGLOBIN 9.8 g/dL (12.0-16.0); MEAN CORPUSCULAR HEMOGLOBIN 25.2 pg (28.0-32.0); MEAN CORPUSCULAR HGB CONC 30.7 g/dL (31.0-37.0); MEAN CORPUSCULAR VOLUME 82.2 fL (81.0-99.0); PLATELET 246 x1000/uL (130-400); RED BLOOD CELL COUNT 3.89 mill/uL (4.2-5.4); WHITE BLOOD COUNT 14.8 x1000/uL (4.5-11.0)
[2024-05-15] MEDS: LACTATED RINGERS 1,000 ML IV SCH (08:44)
[2024-05-15] MEDS ORDERED: DEXTROSE 50% WATER 50ML SYRINGE IV PRN (09:00)
[2024-05-15] MEDS: FENTANYL CITRATE/PF 1,000 MCG in SODIUM CHLORIDE 0.9% 80 ML IV PRN (09:12)
[2024-05-15] MEDS ORDERED: PROPOFOL 10MG/ML 100ML 100 ML IV PRN (10:30)
[2024-05-15 11:02] LABS: BG BASE EXCESS 8.4 mmol/L (-2.0-3.0); BG CARBOXYHEMOGLOBIN 0.3 % (0.5-1.5); BG FRACTION INSPIRED OXYGEN 40; BG HCO3 ACT 34.8 mmol/L (21.0-28.0); BG METHEMOGLOBIN 0.3 % (0.5-1.5); BG OXYHEMOGLOBIN 98.4 % (94.0-98.0); BG PCO2 56.8 mmHg (32.0-45.0); BG PH 7.405 (7.350-7.450); BG PO2 136.3 mmHg (83.0-108.0); BG SAMPLE SITE RIGHT RADIAL; BG TOTAL HEMOGLOBIN 11.9 g/dL (12.0-16.0); BG VENT MODE VENT - PRVC
[2024-05-15] MEDS: BLOOD SUGAR DIAGNOSTIC STRIP TEST SCH (12:50)
[2024-05-15] MEDS ORDERED: LIDOCAINE HCL 1% 10 MG/ML 10ML VIAL ONE (13:20)
[2024-05-15] MEDS: INSULIN LISPRO 100 UNITS/ML SUBCUT SCH (14:15)
[2024-05-16] VITALS (100 sets, daily range): BP systolic 110–181; BP diastolic 63–113; PULSE 57–166; RESP 14–29; TEMP 36.6–37.4; O2SAT 93–100
[2024-05-16 06:43] LABS: HEMATOCRIT 28.8 % (36.0-48.0); MEAN CORPUSCULAR HEMOGLOBIN 25.3 pg (28.0-32.0); MEAN CORPUSCULAR HGB CONC 31.4 g/dL (31.0-37.0); MEAN CORPUSCULAR VOLUME 80.7 fL (81.0-99.0); PLATELET 248 x1000/uL (130-400); RED BLOOD CELL COUNT 3.57 mill/uL (4.2-5.4); RED CELL DISTRIBUTION WIDTH 22.5 % (11.6-14.6)
[2024-05-16 06:52] LABS: CHLORIDE 102 mEq/L (98-107); POTASSIUM 4.6 mEq/L (3.5-5.1); SODIUM 140 mEq/L (136-145)
[2024-05-16 06:53] LABS: CALCIUM 9.5 mg/dL (8.7-10.4); CARBON DIOXIDE 34 mEq/L (21-32)
[2024-05-16 06:58] LABS: CREATININE 0.8 mg/dL (0.6-1.0); GLUCOSE 151 mg/dL (70-105); TRIGLYCERIDE 76 mg/dL (0-150)
[2024-05-16 06:59] LABS: UREA NITROGEN BLOOD 36 mg/dL (9-23)
[2024-05-16 07:02] LABS: IRON 47 ug/dL (50-170)
[2024-05-16 07:03] LABS: FOLIC ACID (FOLATE) SERUM 7.43 ng/mL (>5.38)
[2024-05-16 07:04] LABS: FERRITIN 50 ng/mL (10-291); VITAMIN B12 SERUM 563 pg/mL (211-911)
[2024-05-16 07:05] LABS: TOTAL IRON BINDING CAPACITY 324 ug/dl (250-425)
[2024-05-16 08:08] LABS: BG BASE EXCESS 9.4 mmol/L (-2.0-3.0); BG CARBOXYHEMOGLOBIN 0.1 % (0.5-1.5); BG DEOXYHEMOGLOBIN 1.3 % (0.0-5.0); BG FRACTION INSPIRED OXYGEN 40; BG HCO3 ACT 36.4 mmol/L (21.0-28.0); BG OXYGEN SATURATION 98.7 % (94.0-98.0); BG OXYHEMOGLOBIN 98.6 % (94.0-98.0); BG PCO2 62.6 mmHg (32.0-45.0); BG PH 7.382 (7.350-7.450); BG PO2 119.9 mmHg (83.0-108.0); BG SAMPLE SITE LEFT RADIAL; BG TOTAL HEMOGLOBIN 11.1 g/dL (12.0-16.0); BG VENT MODE VENT - AC/PRVC
[2024-05-16] MEDS: PANTOPRAZOLE SODIUM 40 MG/VIAL IV SCH (09:13)
[2024-05-16] MEDS: DEXMEDETOMIDINE 400 MCG/100 ML 100 ML IV PRN (13:43)
[2024-05-16] MEDS: QUETIAPINE FUMARATE 25MG TABLET PO SCH (21:16)
[2024-05-16] MEDS: HYDRALAZINE HCL 25MG TABLET PO SCH (21:17)
[2024-05-16] MEDS: FENTANYL CITRATE/PF 1,000 MCG in DEXT 5% WATER 80 ML IV PRN (22:25)
[2024-05-17] VITALS (108 sets, daily range): BP systolic 109–198; BP diastolic 65–166; PULSE 48–173; RESP 15–25; TEMP 36.5–36.9; O2SAT 94–100
[2024-05-17] MEDS: DOCUSATE SODIUM SUGAR FREE 100MG/10ML UDC NG SCH (09:19)
[2024-05-17] MEDS: MAGNESIUM HYDROXIDE 400MG/5ML 30ML UDC PO SCH (09:19)
[2024-05-17] MEDS: POLYETHYLENE GLYCOL 3350 (17GM) 1 DOSE PACK PO SCH (09:25)
[2024-05-17 12:36] LABS: BG BASE EXCESS 9.9 mmol/L (-2.0-3.0); BG CARBOXYHEMOGLOBIN 0.3 % (0.5-1.5); BG DEOXYHEMOGLOBIN 0.9 % (0.0-5.0); BG FRACTION INSPIRED OXYGEN 40; BG HCO3 ACT 34.6 mmol/L (21.0-28.0); BG METHEMOGLOBIN 0.3 % (0.5-1.5); BG OXYGEN SATURATION 99.1 % (94.0-98.0); BG OXYHEMOGLOBIN 98.5 % (94.0-98.0); BG PCO2 47.8 mmHg (32.0-45.0); BG PH 7.478 (7.350-7.450); BG PO2 135.9 mmHg (83.0-108.0); BG SAMPLE SITE LEFT RADIAL; BG TOTAL HEMOGLOBIN 10.8 g/dL (12.0-16.0); BG TOTAL RESPIRATORY RATE 24 b/min; BG VENT MODE VENT PRVC
[2024-05-17 13:32] LABS: CHLORIDE 100 mEq/L (98-107); POTASSIUM 4.3 mEq/L (3.5-5.1); SODIUM 138 mEq/L (136-145)
[2024-05-17 13:33] LABS: CARBON DIOXIDE 32 mEq/L (21-32)
[2024-05-17 13:34] LABS: CALCIUM 9.8 mg/dL (8.7-10.4)
[2024-05-17 13:38] LABS: CREATININE 0.8 mg/dL (0.6-1.0); GLUCOSE 130 mg/dL (70-105)
[2024-05-17 13:39] LABS: UREA NITROGEN BLOOD 35 mg/dL (9-23)
[2024-05-17 13:40] LABS: ALANINE AMINOTRANSFERASE 42 IU/L (10-49); ALBUMIN 3.9 g/dL (3.2-4.8); ASPARTATE AMINOTRANSFERASE 32 IU/L (<34)
[2024-05-17 13:41] LABS: BILIRUBIN TOTAL 0.5 mg/dL (0.1-1.0); PROTEIN TOTAL 6.3 g/dL (6.0-8.3)
[2024-05-17 14:20] LABS: HEMATOCRIT. 33.7 % (36.0-48.0); HEMOGLOBIN. 10.3 g/dL (12.0-16.0); MEAN CORPUSCULAR HGB CONC 30.7 g/dL (31.0-37.0); MEAN CORPUSCULAR VOLUME 81.4 fL (81.0-99.0); MEAN PLATELET VOLUME 8.6 fl (7.4-10.4); PLATELET 250 x1000/uL (130-400); RED BLOOD CELL COUNT 4.14 mill/uL (4.2-5.4); RED CELL DISTRIBUTION WIDTH 21.8 % (11.6-14.6); WHITE BLOOD COUNT 22.9 x1000/uL (4.5-11.0)
[2024-05-17 14:28] LABS: DIFFERENTIAL COMMENT 1
[2024-05-17 16:28] LABS: ANISOCYTOSIS 2+; PLATELET ESTIMATE NORMAL
[2024-05-17] MEDS: QUETIAPINE FUMARATE 25MG TABLET PO SCH (21:24)
[2024-05-18] VITALS (102 sets, daily range): BP systolic 94–199; BP diastolic 53–127; PULSE 56–185; RESP 12–31; TEMP 36.4–37.2; O2SAT 92–100
[2024-05-18] MEDS: LACTATED RINGERS 1,000 ML IV NR (00:15)
[2024-05-18] MEDS: ACETAMINOPHEN 325MG TABLET PO PRN (00:40)
[2024-05-18] MEDS: LABETALOL 5MG/ML 4ML INJ IV NR (02:28)
[2024-05-18] MEDS: PROPOFOL 10MG/ML 100ML 100 ML IV PRN (02:30)
[2024-05-18] MEDS ORDERED: NOREPINEPHRINE 8MG/250ML PMX 250 ML IV PRN (03:45)
[2024-05-18 09:03] LABS: BG BASE EXCESS 10.5 mmol/L (-2.0-3.0); BG CARBOXYHEMOGLOBIN 0.4 % (0.5-1.5); BG DEOXYHEMOGLOBIN 0.9 % (0.0-5.0); BG FRACTION INSPIRED OXYGEN 40; BG HCO3 ACT 35.1 mmol/L (21.0-28.0); BG OXYGEN SATURATION 99.1 % (94.0-98.0); BG OXYHEMOGLOBIN 98.7 % (94.0-98.0); BG PCO2 47.4 mmHg (32.0-45.0); BG PH 7.488 (7.350-7.450); BG PO2 144.9 mmHg (83.0-108.0); BG SAMPLE SITE RIGHT RADIAL; BG TOTAL HEMOGLOBIN 11.1 g/dL (12.0-16.0); BG VENT MODE VENT - PRVC
[2024-05-18] MEDS: HYDROXYZINE 25MG TABLET PO PRN (09:10)
[2024-05-18 09:43] LABS: CHLORIDE 99 mEq/L (98-107); HEMATOCRIT. 31.9 % (36.0-48.0); HEMOGLOBIN. 9.8 g/dL (12.0-16.0); MEAN CORPUSCULAR HEMOGLOBIN 24.8 pg (28.0-32.0); MEAN CORPUSCULAR HGB CONC 30.6 g/dL (31.0-37.0); MEAN CORPUSCULAR VOLUME 80.9 fL (81.0-99.0); MEAN PLATELET VOLUME 8.3 fl (7.4-10.4); PLATELET 218 x1000/uL (130-400); POTASSIUM 4.4 mEq/L (3.5-5.1); RED BLOOD CELL COUNT 3.95 mill/uL (4.2-5.4); RED CELL DISTRIBUTION WIDTH 22.1 % (11.6-14.6); SODIUM 138 mEq/L (136-145); WHITE BLOOD COUNT 24.6 x1000/uL (4.5-11.0)
[2024-05-18 09:44] LABS: CALCIUM 9.4 mg/dL (8.7-10.4); CARBON DIOXIDE 35 mEq/L (21-32)
[2024-05-18 09:49] LABS: CREATININE 0.8 mg/dL (0.6-1.0); GLUCOSE 126 mg/dL (70-105)
[2024-05-18 09:50] LABS: DIFFERENTIAL COMMENT 1; UREA NITROGEN BLOOD 38 mg/dL (9-23)
[2024-05-18 09:51] LABS: ALANINE AMINOTRANSFERASE 48 IU/L (10-49); ALBUMIN 3.7 g/dL (3.2-4.8); ASPARTATE AMINOTRANSFERASE 35 IU/L (<34)
[2024-05-18 09:52] LABS: BILIRUBIN TOTAL 0.4 mg/dL (0.1-1.0); PROTEIN TOTAL 5.9 g/dL (6.0-8.3)
[2024-05-18] MEDS ORDERED: HALOPERIDOL LACTATE 5MG/ML VIAL IM PRN (11:30)
[2024-05-18] MEDS: DILTIAZEM HCL 60MG TABLET PO SCH (12:02)
[2024-05-18] MEDS: SERTRALINE HCL 25MG TABLET PO SCH (12:02)
[2024-05-18] MEDS: MIDAZOLAM 100MG/100ML PMX 100 ML IV PRN (15:41)
[2024-05-18 16:45] LABS: TROPONIN I HIGH SENSITIVITY 13 ng/L (3.0-34)
[2024-05-18] MEDS ORDERED: METHYLPREDNISOLONE SOD SUCC 40MG/ML (ACT-O-VIAL) IV SCH (18:00)
[2024-05-18] MEDS: IPRATROPIUM/ALBUTEROL 0.5-3(2.5)MG/3ML NEB HHN SCH (20:00)
[2024-05-18] MEDS: BUSPIRONE HCL 5MG TABLET PO SCH (21:22)
[2024-05-18] MEDS: BENZTROPINE MESYLATE 0.5MG TABLET PO SCH (21:23)
[2024-05-19] VITALS (98 sets, daily range): BP systolic 101–181; BP diastolic 47–84; PULSE 61–121; RESP 18–32; TEMP 36.5–38; O2SAT 92–100
[2024-05-19 00:02] LABS: TROPONIN I HIGH SENSITIVITY 8 ng/L (3.0-34)
[2024-05-19] MEDS ORDERED: P20 PO (03:41)
[2024-05-19 07:35] LABS: TRIGLYCERIDE 126 mg/dL (0-150)
[2024-05-19 07:38] LABS: TROPONIN I HIGH SENSITIVITY 7 ng/L (3.0-34)
[2024-05-19 09:20] LABS: HEMATOCRIT. 31.8 % (36.0-48.0); HEMOGLOBIN. 9.5 g/dL (12.0-16.0); MEAN CORPUSCULAR HEMOGLOBIN 24.2 pg (28.0-32.0); MEAN CORPUSCULAR HGB CONC 29.8 g/dL (31.0-37.0); MEAN CORPUSCULAR VOLUME 81.2 fL (81.0-99.0); MEAN PLATELET VOLUME 8.9 fl (7.4-10.4); PLATELET 215 x1000/uL (130-400); RED BLOOD CELL COUNT 3.92 mill/uL (4.2-5.4); RED CELL DISTRIBUTION WIDTH 21.7 % (11.6-14.6); WHITE BLOOD COUNT 24.9 x1000/uL (4.5-11.0)
[2024-05-19 09:26] LABS: CHLORIDE 100 mEq/L (98-107); POTASSIUM 4.2 mEq/L (3.5-5.1); SODIUM 139 mEq/L (136-145)
[2024-05-19 09:27] LABS: CALCIUM 8.9 mg/dL (8.7-10.4); CARBON DIOXIDE 35 mEq/L (21-32); DIFFERENTIAL COMMENT 1
[2024-05-19 09:31] LABS: BG CARBOXYHEMOGLOBIN 0.4 % (0.5-1.5); BG DEOXYHEMOGLOBIN 9.8 % (0.0-5.0); BG FRACTION INSPIRED OXYGEN 40; BG HCO3 ACT 40.4 mmol/L (21.0-28.0); BG METHEMOGLOBIN 0.3 % (0.5-1.5); BG OXYGEN SATURATION 90.1 % (94.0-98.0); BG OXYHEMOGLOBIN 89.5 % (94.0-98.0); BG PH 7.321 (7.350-7.450); BG PO2 66.5 mmHg (83.0-108.0); BG SAMPLE SITE RIGHT RADIAL; BG TOTAL HEMOGLOBIN 9.8 g/dL (12.0-16.0); BG VENT MODE VENT - AC
[2024-05-19 09:32] LABS: CREATININE 0.8 mg/dL (0.6-1.0); GLUCOSE 94 mg/dL (70-105); UREA NITROGEN BLOOD 33 mg/dL (9-23)
[2024-05-19 09:35] LABS: PHOSPHORUS 1.7 mg/dL (2.5-4.9)
[2024-05-19] MEDS ORDERED: MINERAL OIL ENEMA 133ML PR PRN (11:30)
[2024-05-19] MEDS: SODIUM PHOSPHATE 15 MMOL in DEXT 5% WATER 245 ML IV NR (12:37)
[2024-05-19 15:25] LABS: ANISOCYTOSIS 2+; MICROCYTOSIS 1+; PLATELET ESTIMATE NORMAL
[2024-05-19 16:08] LABS: CHLORIDE 97 mEq/L (98-107); POTASSIUM 3.6 mEq/L (3.5-5.1); SODIUM 137 mEq/L (136-145)
[2024-05-19 16:09] LABS: CARBON DIOXIDE 37 mEq/L (21-32)
[2024-05-19 16:10] LABS: CALCIUM 9.1 mg/dL (8.7-10.4)
[2024-05-19 16:14] LABS: CREATININE 0.8 mg/dL (0.6-1.0); GLUCOSE 161 mg/dL (70-105); UREA NITROGEN BLOOD 27 mg/dL (9-23)
[2024-05-19 17:45] LABS: ANISOCYTOSIS 2+; HYPOCHROMASIA 1+; PLATELET ESTIMATE NORMAL
[2024-05-19] MEDS: SENNOSIDES/DOCUSATE SOD 8.6/50MG TABLET PO SCH (21:39)
[2024-05-19] MEDS: ACETAMINOPHEN 325MG TABLET PO PRN (22:43)
[2024-05-20] VITALS (78 sets, daily range): BP systolic 99–169; BP diastolic 52–111; PULSE 84–147; RESP 17–28; TEMP 36.4–38.2; O2SAT 94–100
[2024-05-20 06:39] LABS: CARBON DIOXIDE 37 mEq/L (21-32); CHLORIDE 96 mEq/L (98-107); POTASSIUM 3.6 mEq/L (3.5-5.1); SODIUM 136 mEq/L (136-145)
[2024-05-20 06:40] LABS: CALCIUM 8.9 mg/dL (8.7-10.4)
[2024-05-20 06:42] LABS: HEMATOCRIT 30.2 % (36.0-48.0); HEMOGLOBIN 9.5 g/dL (12.0-16.0); MEAN CORPUSCULAR HEMOGLOBIN 25.1 pg (28.0-32.0); MEAN CORPUSCULAR HGB CONC 31.5 g/dL (31.0-37.0); MEAN CORPUSCULAR VOLUME 79.7 fL (81.0-99.0); PLATELET 205 x1000/uL (130-400); RED BLOOD CELL COUNT 3.79 mill/uL (4.2-5.4); RED CELL DISTRIBUTION WIDTH 21.7 % (11.6-14.6); WHITE BLOOD COUNT 26.3 x1000/uL (4.5-11.0)
[2024-05-20 06:44] LABS: GLUCOSE 114 mg/dL (70-105)
[2024-05-20 06:45] LABS: UREA NITROGEN BLOOD 22 mg/dL (9-23)
[2024-05-20 06:51] LABS: CREATININE 0.8 mg/dL (0.6-1.0)
[2024-05-20 09:34] LABS: BG BASE EXCESS 8.2 mmol/L (-2.0-3.0); BG CARBOXYHEMOGLOBIN 0.8 % (0.5-1.5); BG FRACTION INSPIRED OXYGEN 30; BG HCO3 ACT 32.9 mmol/L (21.0-28.0); BG METHEMOGLOBIN 0.3 % (0.5-1.5); BG OXYHEMOGLOBIN 97.9 % (94.0-98.0); BG PCO2 46.5 mmHg (32.0-45.0); BG PH 7.467 (7.350-7.450); BG PO2 127.1 mmHg (83.0-108.0); BG SAMPLE SITE RIGHT RADIAL; BG TOTAL HEMOGLOBIN 10.7 g/dL (12.0-16.0); BG VENT MODE VENT - AC
[2024-05-20] MEDS: FENTANYL CITRATE/PF 1,000 MCG in SODIUM CHLORIDE 0.9% 80 ML IV PRN (10:19)
[2024-05-20] MEDS: FENTANYL CITRATE/PF 1,000 MCG in DEXT 5% WATER 80 ML IV PRN (15:17)
[2024-05-21] VITALS (58 sets, daily range): BP systolic 97–145; BP diastolic 57–97; PULSE 88–112; RESP 17–37; TEMP 36.7–37.7; O2SAT 95–100
[2024-05-21 06:21] LABS: HEMATOCRIT 31.1 % (36.0-48.0); HEMOGLOBIN 9.8 g/dL (12.0-16.0); MEAN CORPUSCULAR HGB CONC 31.3 g/dL (31.0-37.0); MEAN CORPUSCULAR VOLUME 79.9 fL (81.0-99.0); PLATELET 198 x1000/uL (130-400); RED CELL DISTRIBUTION WIDTH 21.6 % (11.6-14.6); WHITE BLOOD COUNT 23.4 x1000/uL (4.5-11.0)
[2024-05-21 06:36] LABS: CHLORIDE 98 mEq/L (98-107); POTASSIUM 3.2 mEq/L (3.5-5.1); SODIUM 137 mEq/L (136-145)
[2024-05-21 06:37] LABS: CALCIUM 9.3 mg/dL (8.7-10.4); CARBON DIOXIDE 33 mEq/L (21-32)
[2024-05-21 06:42] LABS: CREATININE 0.8 mg/dL (0.6-1.0); GLUCOSE 111 mg/dL (70-105); UREA NITROGEN BLOOD 16 mg/dL (9-23)
[2024-05-21 08:20] LABS: BG BASE EXCESS 9.4 mmol/L (-2.0-3.0); BG CARBOXYHEMOGLOBIN 0.5 % (0.5-1.5); BG FRACTION INSPIRED OXYGEN 30; BG HCO3 ACT 32.5 mmol/L (21.0-28.0); BG METHEMOGLOBIN 0.3 % (0.5-1.5); BG OXYHEMOGLOBIN 97.2 % (94.0-98.0); BG PCO2 38.3 mmHg (32.0-45.0); BG PH 7.546 (7.350-7.450); BG PO2 93.3 mmHg (83.0-108.0); BG SAMPLE SITE RIGHT RADIAL; BG TOTAL HEMOGLOBIN 12.4 g/dL (12.0-16.0); BG VENT MODE VENT - PRVC
[2024-05-21] MEDS: POTASSIUM CHLORIDE 20MEQ/PACKET PO SCH (10:41)
[2024-05-21] MEDS ORDERED: MIDAZOLAM HCL 2 MG/2 ML VIAL ONE ×2 (12:37→12:50)
[2024-05-21] MEDS ORDERED: HEPARIN 1000 UNITS/ML 10ML ONE (12:43)
[2024-05-21] MEDS ORDERED: LIDOCAINE HCL 1% 20ML VIAL ONE ×2 (12:43→12:45)
[2024-05-21] MEDS ORDERED: IODIXANOL 320MG/ML 100 ML BOTTLE IV ONE (12:46)
[2024-05-21] MEDS ORDERED: ATROPINE SULFATE 1MG/10ML SYR IV PRN (14:15)
[2024-05-22] VITALS (49 sets, daily range): BP systolic 99–162; BP diastolic 63–112; PULSE 87–129; RESP 17–28; TEMP 36.9–37.7; O2SAT 84–100
[2024-05-22 05:53] LABS: HEMATOCRIT. 32.8 % (36.0-48.0); HEMOGLOBIN. 9.9 g/dL (12.0-16.0); MEAN CORPUSCULAR HEMOGLOBIN 24.8 pg (28.0-32.0); MEAN CORPUSCULAR HGB CONC 30.2 g/dL (31.0-37.0); MEAN PLATELET VOLUME 8.7 fl (7.4-10.4); PLATELET 212 x1000/uL (130-400); RED CELL DISTRIBUTION WIDTH 22.1 % (11.6-14.6); WHITE BLOOD COUNT 22.8 x1000/uL (4.5-11.0)
[2024-05-22 06:23] LABS: CHLORIDE 101 mEq/L (98-107); POTASSIUM 4.3 mEq/L (3.5-5.1); SODIUM 137 mEq/L (136-145)
[2024-05-22 06:24] LABS: CALCIUM 9.4 mg/dL (8.7-10.4); CARBON DIOXIDE 28 mEq/L (21-32)
[2024-05-22 06:29] LABS: CREATININE 0.8 mg/dL (0.6-1.0); GLUCOSE 106 mg/dL (70-105)
[2024-05-22 06:30] LABS: UREA NITROGEN BLOOD 12 mg/dL (9-23)
[2024-05-22 06:52] LABS: DIFFERENTIAL COMMENT 1
[2024-05-22] MEDS: IPRATROPIUM BROMIDE (0.02%) 0.5MG/2.5ML NEB HHN SCH (08:26)
[2024-05-22] MEDS ORDERED: ACETAMINOPHEN 650MG/20.3ML UDC PO PRN (08:45)
[2024-05-22] MEDS: PROPOFOL 10MG/ML 100ML 100 ML IV PRN (13:06)
[2024-05-22] MEDS: ACETAMINOPHEN 650MG/20.3ML UDC NG PRN (17:38)
[2024-05-22 18:22] LABS: ANISOCYTOSIS 2+; PLATELET ESTIMATE NORMAL
[2024-05-23] VITALS (32 sets, daily range): BP systolic 125–190; BP diastolic 63–143; PULSE 83–145; RESP 19–35; TEMP 36.2–37.3; O2SAT 85–100
[2024-05-23 05:26] LABS: HEMATOCRIT. 32.1 % (36.0-48.0); MEAN CORPUSCULAR HEMOGLOBIN 25.2 pg (28.0-32.0); MEAN CORPUSCULAR HGB CONC 31.1 g/dL (31.0-37.0); MEAN CORPUSCULAR VOLUME 81.1 fL (81.0-99.0); MEAN PLATELET VOLUME 8.5 fl (7.4-10.4); PLATELET 234 x1000/uL (130-400); RED BLOOD CELL COUNT 3.96 mill/uL (4.2-5.4); RED CELL DISTRIBUTION WIDTH 21.9 % (11.6-14.6); WHITE BLOOD COUNT 19.6 x1000/uL (4.5-11.0)
[2024-05-23 05:44] LABS: DIFFERENTIAL COMMENT 1
[2024-05-23 05:52] LABS: CALCIUM 9.3 mg/dL (8.7-10.4); CARBON DIOXIDE 32 mEq/L (21-32); CHLORIDE 103 mEq/L (98-107); POTASSIUM 3.3 mEq/L (3.5-5.1); SODIUM 140 mEq/L (136-145)
[2024-05-23 05:57] LABS: CREATININE 0.8 mg/dL (0.6-1.0)
[2024-05-23 05:58] LABS: GLUCOSE 111 mg/dL (70-105); TRIGLYCERIDE 140 mg/dL (0-150); UREA NITROGEN BLOOD 13 mg/dL (9-23)
[2024-05-23 10:58] LABS: BG BASE EXCESS 4.4 mmol/L (-2.0-3.0); BG CARBOXYHEMOGLOBIN 0.3 % (0.5-1.5); BG FRACTION INSPIRED OXYGEN 40; BG HCO3 ACT 30.2 mmol/L (21.0-28.0); BG METHEMOGLOBIN 0.3 % (0.5-1.5); BG OXYHEMOGLOBIN 93.4 % (94.0-98.0); BG PCO2 51.4 mmHg (32.0-45.0); BG PH 7.387 (7.350-7.450); BG PO2 72.2 mmHg (83.0-108.0); BG SAMPLE SITE RIGHT RADIAL; BG TOTAL HEMOGLOBIN 10.4 g/dL (12.0-16.0); BG VENT MODE VENT - CPAP
[2024-05-23] MEDS ORDERED: POTASSIUM CHLORIDE 40 MEQ in DEXT 5% WATER 230 ML IV ONE (14:00)
[2024-05-23 15:31] LABS: MICROCYTOSIS 1+; PLATELET ESTIMATE NORMAL
[2024-05-23] MEDS: POTASSIUM CHLORIDE 20 MEQ in DEXT 5% WATER 90 ML IV SCH (16:16)
[2024-05-23] MEDS: HALOPERIDOL LACTATE 5MG/ML VIAL IM PRN (20:05)
[2024-05-24] VITALS (73 sets, daily range): BP systolic 115–168; BP diastolic 81–106; PULSE 95–142; RESP 16–28; TEMP 35.7–37.6; O2SAT 90–100
[2024-05-24 02:09] LABS: BG BASE EXCESS 2.9 mmol/L (-2.0-3.0); BG CARBOXYHEMOGLOBIN 0.3 % (0.5-1.5); BG DEOXYHEMOGLOBIN 3.1 % (0.0-5.0); BG FRACTION INSPIRED OXYGEN 70; BG HCO3 ACT 29.3 mmol/L (21.0-28.0); BG METHEMOGLOBIN 0.3 % (0.5-1.5); BG OXYGEN SATURATION 96.9 % (94.0-98.0); BG OXYHEMOGLOBIN 96.3 % (94.0-98.0); BG PCO2 54.4 mmHg (32.0-45.0); BG PH 7.349 (7.350-7.450); BG PO2 81.4 mmHg (83.0-108.0); BG SAMPLE SITE RIGHT RADIAL; BG TOTAL HEMOGLOBIN 10.2 g/dL (12.0-16.0); BG VENT MODE VENT - AC
[2024-05-24] MEDS: PROPOFOL 10MG/ML 100ML 100 ML IV PRN (02:51)
[2024-05-24 07:21] LABS: CARBON DIOXIDE 30 mEq/L (21-32); CHLORIDE 102 mEq/L (98-107); POTASSIUM 4.6 mEq/L (3.5-5.1); SODIUM 139 mEq/L (136-145)
[2024-05-24 07:22] LABS: CALCIUM 9.2 mg/dL (8.7-10.4)
[2024-05-24 07:26] LABS: CREATININE 0.8 mg/dL (0.6-1.0)
[2024-05-24 07:27] LABS: GLUCOSE 66 mg/dL (70-105); UREA NITROGEN BLOOD 20 mg/dL (9-23)
[2024-05-24 07:36] LABS: HEMATOCRIT. 30.3 % (36.0-48.0); HEMOGLOBIN. 9.1 g/dL (12.0-16.0); MEAN CORPUSCULAR HEMOGLOBIN 24.5 pg (28.0-32.0); MEAN CORPUSCULAR VOLUME 81.7 fL (81.0-99.0); RED BLOOD CELL COUNT 3.71 mill/uL (4.2-5.4)
[2024-05-24 07:46] LABS: DIFFERENTIAL COMMENT 1
[2024-05-24 08:30] LABS: BG BASE EXCESS 5.5 mmol/L (-2.0-3.0); BG CARBOXYHEMOGLOBIN 0.3 % (0.5-1.5); BG DEOXYHEMOGLOBIN 0.1 % (0.0-5.0); BG FRACTION INSPIRED OXYGEN 70; BG HCO3 ACT 29.2 mmol/L (21.0-28.0); BG METHEMOGLOBIN 0.1 % (0.5-1.5); BG OXYGEN SATURATION 99.9 % (94.0-98.0); BG OXYHEMOGLOBIN 99.5 % (94.0-98.0); BG PCO2 39.4 mmHg (32.0-45.0); BG PH 7.488 (7.350-7.450); BG SAMPLE SITE RIGHT RADIAL; BG TOTAL HEMOGLOBIN 10.3 g/dL (12.0-16.0); BG VENT MODE VENT - AC
[2024-05-24 08:59] LABS: ANISOCYTOSIS 2+; PLATELET ESTIMATE NORMAL
[2024-05-24 09:00] LABS: GIANT PLATELETS 1+; HYPOCHROMASIA 1+; MEAN PLATELET VOLUME 8.2 fl (7.4-10.4)
[2024-05-24 09:01] LABS: PLATELET 240 x1000/uL (130-400)
[2024-05-25] VITALS (105 sets, daily range): BP systolic 124–153; BP diastolic 77–104; PULSE 112–131; RESP 14–33; TEMP 36.4–37; O2SAT 95–100
[2024-05-25] MEDS: PROPOFOL 10MG/ML 100ML 100 ML IV PRN (01:58)
[2024-05-25 07:51] LABS: HEMATOCRIT 29.6 % (36.0-48.0); HEMOGLOBIN 9.2 g/dL (12.0-16.0); MEAN CORPUSCULAR HEMOGLOBIN 24.7 pg (28.0-32.0); MEAN CORPUSCULAR VOLUME 79.8 fL (81.0-99.0); PLATELET 261 x1000/uL (130-400); RED BLOOD CELL COUNT 3.71 mill/uL (4.2-5.4); RED CELL DISTRIBUTION WIDTH 21.3 % (11.6-14.6); WHITE BLOOD COUNT 24.9 x1000/uL (4.5-11.0)
[2024-05-25 08:17] LABS: POTASSIUM 3.4 mEq/L (3.5-5.1)
[2024-05-25 08:18] LABS: CALCIUM 9.4 mg/dL (8.7-10.4)
[2024-05-25 09:11] LABS: CREATININE 1.4 mg/dL (0.6-1.0)
[2024-05-25 13:32] LABS: BG BASE EXCESS 6.5 mmol/L (-2.0-3.0); BG CARBOXYHEMOGLOBIN 0.3 % (0.5-1.5); BG DEOXYHEMOGLOBIN 1.4 % (0.0-5.0); BG FRACTION INSPIRED OXYGEN 40; BG METHEMOGLOBIN 0.1 % (0.5-1.5); BG OXYGEN SATURATION 98.6 % (94.0-98.0); BG OXYHEMOGLOBIN 98.2 % (94.0-98.0); BG PCO2 44.5 mmHg (32.0-45.0); BG PH 7.461 (7.350-7.450); BG PO2 117.6 mmHg (83.0-108.0); BG SAMPLE SITE RIGHT RADIAL; BG TOTAL HEMOGLOBIN 9.6 g/dL (12.0-16.0); BG VENT MODE VENT - AC
[2024-05-26] VITALS (78 sets, daily range): BP systolic 102–150; BP diastolic 66–93; PULSE 100–121; RESP 14–37; TEMP 36.4–37.4; O2SAT 94–100
[2024-05-26] MEDS: PROPOFOL 10MG/ML 100ML 100 ML IV PRN (06:59)
[2024-05-26] MEDS: ENOXAPARIN 40MG/0.4ML SYR SUBCUT SCH (08:40)
[2024-05-26] MEDS: SERTRALINE HCL 25MG TABLET PO SCH (09:16)
[2024-05-26] MEDS ORDERED: FENTANYL CITRATE/PF 1,000 MCG in SODIUM CHLORIDE 0.9% 80 ML IV PRN (10:15)
[2024-05-26] MEDS: MAGNESIUM/ALUMINUM HYDROXIDE/SIMETHICONE 30ML UDC PO PRN (12:34)
[2024-05-26] MEDS ORDERED: KCL 20MEQ/100ML PREMIX 100 ML IV SCH (19:00)
[2024-05-26 21:03] LABS: POTASSIUM 3.3 mEq/L (3.5-5.1)
[2024-05-26] MEDS: KCL 20MEQ/100ML PREMIX 100 ML IV SCH (22:08)
[2024-05-26] MEDS: INSULIN LISPRO 100 UNITS/ML SUBCUT SCH (23:14)
[2024-05-26] MEDS: BLOOD SUGAR DIAGNOSTIC STRIP TEST SCH (23:14)
[2024-05-27] VITALS (81 sets, daily range): BP systolic 112–153; BP diastolic 69–102; PULSE 88–124; RESP 14–31; TEMP 37.1–37.3; O2SAT 97–100
[2024-05-27] MEDS: IPRATROPIUM BROMIDE (0.02%) 0.5MG/2.5ML NEB HHN SCH (08:18)
[2024-05-27 08:47] LABS: BG BASE EXCESS 7.3 mmol/L (-2.0-3.0); BG CARBOXYHEMOGLOBIN 0.3 % (0.5-1.5); BG DEOXYHEMOGLOBIN 4.1 % (0.0-5.0); BG FRACTION INSPIRED OXYGEN 30; BG HCO3 ACT 32.1 mmol/L (21.0-28.0); BG OXYGEN SATURATION 95.9 % (94.0-98.0); BG OXYHEMOGLOBIN 95.6 % (94.0-98.0); BG PCO2 46.7 mmHg (32.0-45.0); BG PH 7.455 (7.350-7.450); BG PO2 83.3 mmHg (83.0-108.0); BG SAMPLE SITE RIGHT RADIAL; BG TOTAL HEMOGLOBIN 9.5 g/dL (12.0-16.0); BG VENT MODE VENT - AC
[2024-05-27 12:23] LABS: HEMATOCRIT. 30.2 % (36.0-48.0); HEMOGLOBIN. 9.4 g/dL (12.0-16.0); MEAN CORPUSCULAR VOLUME 80.6 fL (81.0-99.0); MEAN PLATELET VOLUME 8.4 fl (7.4-10.4); PLATELET 317 x1000/uL (130-400); RED BLOOD CELL COUNT 3.74 mill/uL (4.2-5.4); RED CELL DISTRIBUTION WIDTH 20.6 % (11.6-14.6); WHITE BLOOD COUNT 17.2 x1000/uL (4.5-11.0)
[2024-05-27 12:35] LABS: CHLORIDE 105 mEq/L (98-107); POTASSIUM 3.5 mEq/L (3.5-5.1); SODIUM 144 mEq/L (136-145)
[2024-05-27 12:36] LABS: CALCIUM 9.6 mg/dL (8.7-10.4); CARBON DIOXIDE 30 mEq/L (21-32)
[2024-05-27 12:41] LABS: CREATININE 1.1 mg/dL (0.6-1.0); GLUCOSE 131 mg/dL (70-105)
[2024-05-27 12:42] LABS: UREA NITROGEN BLOOD 26 mg/dL (9-23)
[2024-05-27 12:54] LABS: DIFFERENTIAL COMMENT 1
[2024-05-27 16:23] LABS: ANISOCYTOSIS 2+; PLATELET ESTIMATE NORMAL
[2024-05-28] VITALS (67 sets, daily range): BP systolic 99–186; BP diastolic 70–103; PULSE 62–128; RESP 14–35; TEMP 36.6–37.2; O2SAT 94–100
[2024-05-28 07:14] LABS: BASOPHILS % 0.6 % (0.0-2.0); DIFFERENTIAL COMMENT 0; EOSINOPHILS % 1.8 % (0.0-5.0); HEMATOCRIT. 26.2 % (36.0-48.0); HEMOGLOBIN. 8.4 g/dL (12.0-16.0); LYMPHOCYTES % 8.7 % (20.0-50.0); MEAN CORPUSCULAR HEMOGLOBIN 25.6 pg (28.0-32.0); MEAN CORPUSCULAR HGB CONC 32.1 g/dL (31.0-37.0); MEAN CORPUSCULAR VOLUME 79.5 fL (81.0-99.0); MEAN PLATELET VOLUME 8.1 fl (7.4-10.4); MONOCYTES % 7.2 % (2.0-8.0); NEUTROPHILS % 81.7 % (40.0-76.0); PLATELET 333 x1000/uL (130-400); RED BLOOD CELL COUNT 3.29 mill/uL (4.2-5.4); RED CELL DISTRIBUTION WIDTH 20.8 % (11.6-14.6); WHITE BLOOD COUNT 16.2 x1000/uL (4.5-11.0)
[2024-05-28 07:24] LABS: CARBON DIOXIDE 32 mEq/L (21-32); CHLORIDE 105 mEq/L (98-107); POTASSIUM 3.2 mEq/L (3.5-5.1); SODIUM 145 mEq/L (136-145)
[2024-05-28 07:25] LABS: CALCIUM 9.1 mg/dL (8.7-10.4)
[2024-05-28 07:30] LABS: CREATININE 0.9 mg/dL (0.6-1.0); GLUCOSE 89 mg/dL (70-105); UREA NITROGEN BLOOD 24 mg/dL (9-23)
[2024-05-28 09:28] LABS: BG BASE EXCESS 6.3 mmol/L (-2.0-3.0); BG CARBOXYHEMOGLOBIN 0.4 % (0.5-1.5); BG DEOXYHEMOGLOBIN 1.2 % (0.0-5.0); BG FRACTION INSPIRED OXYGEN 40; BG HCO3 ACT 30.9 mmol/L (21.0-28.0); BG OXYGEN SATURATION 98.8 % (94.0-98.0); BG OXYHEMOGLOBIN 98.4 % (94.0-98.0); BG PCO2 44.7 mmHg (32.0-45.0); BG PH 7.457 (7.350-7.450); BG PO2 135.3 mmHg (83.0-108.0); BG SAMPLE SITE RIGHT RADIAL; BG TOTAL HEMOGLOBIN 9.7 g/dL (12.0-16.0); BG VENT MODE VENT - AC
[2024-05-28] MEDS: POTASSIUM CHLORIDE 20MEQ/PACKET NG NR (11:39)
[2024-05-28] MEDS ORDERED: ROCURONIUM BROMIDE 10MG/ML VIAL 5ML IV ONE (14:48)
[2024-05-28] MEDS ORDERED: MIDAZOLAM HCL 2 MG/2 ML VIAL ONE (14:49)
[2024-05-28] MEDS ORDERED: FENTANYL CITRATE/PF 50MCG/ML 2ML VIAL ONE (14:49)
[2024-05-28] MEDS ORDERED: LIDOCAINE HCL/EPINEPHRINE 1%-EPI 1:100,000 20ML VIAL ONE (15:03)
[2024-05-28] MEDS: MORPHINE SULFATE 2 MG/ML INJ (NOT FOR IM USE) IV NR (16:44)
[2024-05-29] VITALS (64 sets, daily range): BP systolic 109–141; BP diastolic 73–101; PULSE 88–138; RESP 14–22; TEMP 36.7–36.9; O2SAT 96–100
[2024-05-29 06:03] LABS: BASOPHILS % 0.3 % (0.0-2.0); DIFFERENTIAL COMMENT 0; EOSINOPHILS % 1.1 % (0.0-5.0); HEMATOCRIT. 26.6 % (36.0-48.0); HEMOGLOBIN. 8.5 g/dL (12.0-16.0); LYMPHOCYTES % 7.3 % (20.0-50.0); MEAN CORPUSCULAR HEMOGLOBIN 25.8 pg (28.0-32.0); MEAN CORPUSCULAR HGB CONC 31.9 g/dL (31.0-37.0); MEAN CORPUSCULAR VOLUME 80.8 fL (81.0-99.0); MEAN PLATELET VOLUME 8.1 fl (7.4-10.4); MONOCYTES % 6.2 % (2.0-8.0); NEUTROPHILS % 85.1 % (40.0-76.0); PLATELET 339 x1000/uL (130-400); RED BLOOD CELL COUNT 3.29 mill/uL (4.2-5.4); RED CELL DISTRIBUTION WIDTH 20.2 % (11.6-14.6); WHITE BLOOD COUNT 18.8 x1000/uL (4.5-11.0)
[2024-05-29 07:12] LABS: CARBON DIOXIDE 30 mEq/L (21-32); CHLORIDE 104 mEq/L (98-107); POTASSIUM 3.3 mEq/L (3.5-5.1); SODIUM 144 mEq/L (136-145)
[2024-05-29 07:13] LABS: CALCIUM 9.2 mg/dL (8.7-10.4)
[2024-05-29 07:17] LABS: CREATININE 0.8 mg/dL (0.6-1.0); GLUCOSE 88 mg/dL (70-105)
[2024-05-29 07:18] LABS: UREA NITROGEN BLOOD 22 mg/dL (9-23)
[2024-05-29] MEDS: POTASSIUM CHLORIDE 20MEQ/PACKET NG NR (10:28)
[2024-05-30] VITALS (60 sets, daily range): BP systolic 119–150; BP diastolic 67–108; PULSE 97–133; RESP 15–23; TEMP 36.7–38.8; O2SAT 22–100
[2024-05-30 06:29] LABS: CARBON DIOXIDE 30 mEq/L (21-32); CHLORIDE 104 mEq/L (98-107); POTASSIUM 3.1 mEq/L (3.5-5.1); SODIUM 143 mEq/L (136-145)
[2024-05-30 06:30] LABS: CALCIUM 9.3 mg/dL (8.7-10.4)
[2024-05-30 06:33] LABS: CREATININE 0.8 mg/dL (0.6-1.0)
[2024-05-30 06:35] LABS: GLUCOSE 127 mg/dL (70-105); UREA NITROGEN BLOOD 19 mg/dL (9-23)
[2024-05-30] MEDS: POTASSIUM CHLORIDE 20MEQ/PACKET NG NR (08:20)
[2024-05-30] MEDS: IPRATROPIUM/ALBUTEROL 0.5-3(2.5)MG/3ML NEB HHN PRN (10:34)
[2024-05-30] MEDS: MAGNESIUM 2 G PREMIX 50 ML IV NR (10:35)
[2024-05-30 11:14] LABS: HEMATOCRIT. 26.2 % (36.0-48.0); HEMOGLOBIN. 8.1 g/dL (12.0-16.0); MEAN CORPUSCULAR HEMOGLOBIN 25.2 pg (28.0-32.0); MEAN CORPUSCULAR HGB CONC 30.8 g/dL (31.0-37.0); MEAN CORPUSCULAR VOLUME 81.7 fL (81.0-99.0); MEAN PLATELET VOLUME 8.4 fl (7.4-10.4); PLATELET 402 x1000/uL (130-400); RED BLOOD CELL COUNT 3.21 mill/uL (4.2-5.4); RED CELL DISTRIBUTION WIDTH 19.7 % (11.6-14.6)
[2024-05-30 11:22] LABS: DIFFERENTIAL COMMENT 1
[2024-05-30 13:39] LABS: ANISOCYTOSIS 2+
[2024-05-30 13:40] LABS: PLATELET ESTIMATE NORMAL
[2024-05-31] VITALS (62 sets, daily range): BP systolic 118–147; BP diastolic 73–92; PULSE 92–134; RESP 14–24; TEMP 36.5–38.1; O2SAT 89–100
[2024-05-31 06:56] LABS: HEMATOCRIT. 25.2 % (36.0-48.0); HEMOGLOBIN. 8.1 g/dL (12.0-16.0); MEAN CORPUSCULAR HEMOGLOBIN 25.8 pg (28.0-32.0); MEAN CORPUSCULAR VOLUME 80.6 fL (81.0-99.0); MEAN PLATELET VOLUME 8.1 fl (7.4-10.4); PLATELET 459 x1000/uL (130-400); RED BLOOD CELL COUNT 3.13 mill/uL (4.2-5.4); RED CELL DISTRIBUTION WIDTH 19.4 % (11.6-14.6); WHITE BLOOD COUNT 21.4 x1000/uL (4.5-11.0)
[2024-05-31 07:16] LABS: DIFFERENTIAL COMMENT 1
[2024-05-31 07:22] LABS: CARBON DIOXIDE 30 mEq/L (21-32); CHLORIDE 101 mEq/L (98-107); POTASSIUM 3.2 mEq/L (3.5-5.1); SODIUM 141 mEq/L (136-145)
[2024-05-31 07:23] LABS: CALCIUM 9.2 mg/dL (8.7-10.4)
[2024-05-31 07:27] LABS: CREATININE 0.7 mg/dL (0.6-1.0)
[2024-05-31 07:28] LABS: GLUCOSE 102 mg/dL (70-105); UREA NITROGEN BLOOD 14 mg/dL (9-23)
[2024-05-31] MEDS ORDERED: KCL 20MEQ/100ML PREMIX 100 ML IV ONE (08:45)
[2024-05-31] MEDS: POTASSIUM CHLORIDE 20MEQ/PACKET NG NR (09:06)
[2024-05-31 09:16] LABS: ANISOCYTOSIS 1+; HYPOCHROMASIA 1+; PLATELET ESTIMATE NORMAL
[2024-05-31] MEDS: POTASSIUM CHLORIDE 20MEQ in DEXT 5% WATER 100ML IV NR (11:26)
[2024-06-01] VITALS (70 sets, daily range): BP systolic 88–164; BP diastolic 61–123; PULSE 94–147; RESP 14–28; TEMP 37–37.6; O2SAT 91–100
[2024-06-01] MEDS: GUAIFENESIN 600MG ER TABLET PO STA (00:09)
[2024-06-01] MEDS: MORPHINE SULFATE 2 MG/ML INJ (NOT FOR IM USE) IV PRN (00:37)
[2024-06-01] MEDS: DEXMEDETOMIDINE 400 MCG/100 ML 100 ML IV PRN (06:32)
[2024-06-01 08:09] LABS: CARBON DIOXIDE 30 mEq/L (21-32); CHLORIDE 100 mEq/L (98-107); SODIUM 140 mEq/L (136-145)
[2024-06-01 08:10] LABS: CALCIUM 9.7 mg/dL (8.7-10.4)
[2024-06-01 08:14] LABS: CREATININE 0.6 mg/dL (0.6-1.0)
[2024-06-01 08:15] LABS: GLUCOSE 73 mg/dL (70-105); UREA NITROGEN BLOOD 11 mg/dL (9-23)
[2024-06-01 08:16] LABS: ALANINE AMINOTRANSFERASE 174 IU/L (10-49); ALBUMIN 3.7 g/dL (3.2-4.8); ASPARTATE AMINOTRANSFERASE 97 IU/L (<34)
[2024-06-01] MEDS: ACETAMINOPHEN 325MG TABLET PO PRN (08:16)
[2024-06-01 08:17] LABS: BILIRUBIN TOTAL 0.6 mg/dL (0.1-1.0); PROTEIN TOTAL 6.3 g/dL (6.0-8.3)
[2024-06-01] MEDS ORDERED: IPRATROPIUM BROMIDE (0.02%) 0.5MG/2.5ML NEB HHN PRN (08:30)
[2024-06-01] MEDS ORDERED: SODIUM CHLORIDE 3% FOR INH 15ML NEB INH SCH (09:00)
[2024-06-01] MEDS: SODIUM CHLORIDE 10% FOR INH 15ML NEB INH NR (14:45)
[2024-06-01] MEDS: IPRATROPIUM BROMIDE (0.02%) 0.5MG/2.5ML NEB HHN SCH (14:45)
[2024-06-01] MEDS: BUDESONIDE 0.5MG/2ML NEB HHN SCH (14:46)
[2024-06-01] MEDS: TRAZODONE HCL 50MG TABLET PO PRN (14:50)
[2024-06-01] MEDS: MONTELUKAST SODIUM 10MG TABLET PO SCH (17:00)
[2024-06-01] MEDS: MIDODRINE HCL 5MG TABLET PO SCH (17:15)
[2024-06-01] MEDS: POTASSIUM CHLORIDE 20MEQ/PACKET NG NR (18:37)
[2024-06-01] MEDS: KCL 20MEQ/100ML PREMIX 100 ML IV NR (18:38)
[2024-06-01] MEDS: GABAPENTIN SOLN 300MG/6ML UDC PO NR (20:00)
[2024-06-01] MEDS: TRAZODONE HCL 50MG TABLET PO NR (20:03)
[2024-06-01] MEDS: OLANZAPINE 5MG TABLET NG SCH (20:22)
[2024-06-02] VITALS (83 sets, daily range): BP systolic 119–223; BP diastolic 68–105; PULSE 100–146; RESP 16–59; TEMP 36.6–37.3; O2SAT 0–100
[2024-06-02 06:27] LABS: BASOPHILS % 0.4 % (0.0-2.0); DIFFERENTIAL COMMENT 0; EOSINOPHILS % 3.1 % (0.0-5.0); HEMATOCRIT. 23.8 % (36.0-48.0); HEMOGLOBIN. 7.6 g/dL (12.0-16.0); LYMPHOCYTES % 9.3 % (20.0-50.0); MEAN CORPUSCULAR HEMOGLOBIN 26.3 pg (28.0-32.0); MEAN PLATELET VOLUME 8.1 fl (7.4-10.4); MONOCYTES % 11.7 % (2.0-8.0); NEUTROPHILS % 75.5 % (40.0-76.0); PLATELET 643 x1000/uL (130-400); RED CELL DISTRIBUTION WIDTH 18.3 % (11.6-14.6); WHITE BLOOD COUNT 14.3 x1000/uL (4.5-11.0)
[2024-06-02 06:43] LABS: CARBON DIOXIDE 31 mEq/L (21-32); CHLORIDE 102 mEq/L (98-107); POTASSIUM 3.4 mEq/L (3.5-5.1); SODIUM 140 mEq/L (136-145)
[2024-06-02 06:44] LABS: CALCIUM 9.3 mg/dL (8.7-10.4)
[2024-06-02 06:49] LABS: CREATININE 0.7 mg/dL (0.6-1.0); GLUCOSE 138 mg/dL (70-105); UREA NITROGEN BLOOD 12 mg/dL (9-23)
[2024-06-02 06:51] LABS: PHOSPHORUS 3.8 mg/dL (2.5-4.9)
[2024-06-02] MEDS: POTASSIUM CHLORIDE 20MEQ/PACKET NG NR (08:45)
[2024-06-02] MEDS: MAGNESIUM 4 G PREMIX 100 ML IV NR (10:32)
[2024-06-02] MEDS: TRAZODONE HCL 50MG TABLET PO SCH (21:18)
[2024-06-02] MEDS: GABAPENTIN SOLN 300MG/6ML UDC PO NR (21:26)
[2024-06-03] VITALS (61 sets, daily range): BP systolic 118–168; BP diastolic 76–139; PULSE 101–142; RESP 15–29; TEMP 36.3–37.5; O2SAT 0–100
[2024-06-03] MEDS: OLANZAPINE 2.5MG TABLET PO PRN (05:04)
[2024-06-03 05:41] LABS: HEMATOCRIT. 24.9 % (36.0-48.0); MEAN CORPUSCULAR HEMOGLOBIN 25.8 pg (28.0-32.0); MEAN CORPUSCULAR VOLUME 80.7 fL (81.0-99.0); MEAN PLATELET VOLUME 7.7 fl (7.4-10.4); PLATELET 805 x1000/uL (130-400); RED BLOOD CELL COUNT 3.09 mill/uL (4.2-5.4); WHITE BLOOD COUNT 13.7 x1000/uL (4.5-11.0)
[2024-06-03 05:56] LABS: CHLORIDE 102 mEq/L (98-107); POTASSIUM 3.7 mEq/L (3.5-5.1); SODIUM 143 mEq/L (136-145)
[2024-06-03 05:57] LABS: CALCIUM 9.6 mg/dL (8.7-10.4); CARBON DIOXIDE 32 mEq/L (21-32)
[2024-06-03 06:02] LABS: CREATININE 0.7 mg/dL (0.6-1.0); GLUCOSE 137 mg/dL (70-105); UREA NITROGEN BLOOD 11 mg/dL (9-23)
[2024-06-03 07:56] LABS: DIFFERENTIAL COMMENT 1
[2024-06-03] MEDS: SERTRALINE HCL 50MG TABLET PO SCH (08:28)
[2024-06-03 09:51] LABS: BG BASE EXCESS 3.8 mmol/L (-2.0-3.0); BG CARBOXYHEMOGLOBIN 0.6 % (0.5-1.5); BG DEOXYHEMOGLOBIN 3.8 % (0.0-5.0); BG FRACTION INSPIRED OXYGEN 35; BG HCO3 ACT 27.6 mmol/L (21.0-28.0); BG METHEMOGLOBIN 0.3 % (0.5-1.5); BG OXYGEN SATURATION 96.2 % (94.0-98.0); BG OXYHEMOGLOBIN 95.3 % (94.0-98.0); BG PCO2 38.5 mmHg (32.0-45.0); BG PH 7.474 (7.350-7.450); BG PO2 82.2 mmHg (83.0-108.0); BG SAMPLE SITE RIGHT RADIAL; BG TOTAL HEMOGLOBIN 8.4 g/dL (12.0-16.0); BG VENT MODE MASK - CPAP
[2024-06-03] MEDS ORDERED: NALOXONE HCL 0.4MG/ML VIAL IV PRN (12:15)
[2024-06-03 14:06] LABS: ANISOCYTOSIS 1+; PLATELET ESTIMATE MARKEDLY INCREASED
[2024-06-03] MEDS: SODIUM CHLORIDE 0.9% 1,000 ML IV SCH (21:19)
[2024-06-03] MEDS: GABAPENTIN SOLN 300MG/6ML UDC NG SCH (21:35)
[2024-06-03] MEDS: TRAZODONE HCL 50MG TABLET PO SCH (21:35)
[2024-06-04] VITALS (54 sets, daily range): BP systolic 113–147; BP diastolic 68–111; PULSE 88–139; RESP 9–27; TEMP 36.6–37.2; O2SAT 95–100
[2024-06-04 03:52] LABS: HEMATOCRIT. 22.4 % (36.0-48.0); HEMOGLOBIN. 7.2 g/dL (12.0-16.0); MEAN CORPUSCULAR HEMOGLOBIN 25.9 pg (28.0-32.0); MEAN CORPUSCULAR HGB CONC 32.1 g/dL (31.0-37.0); MEAN CORPUSCULAR VOLUME 80.7 fL (81.0-99.0); MEAN PLATELET VOLUME 7.6 fl (7.4-10.4); PLATELET 737 x1000/uL (130-400); RED BLOOD CELL COUNT 2.78 mill/uL (4.2-5.4); RED CELL DISTRIBUTION WIDTH 17.9 % (11.6-14.6); WHITE BLOOD COUNT 11.5 x1000/uL (4.5-11.0)
[2024-06-04 04:01] LABS: DIFFERENTIAL COMMENT 1
[2024-06-04 04:02] LABS: CARBON DIOXIDE 33 mEq/L (21-32); CHLORIDE 103 mEq/L (98-107); POTASSIUM 3.7 mEq/L (3.5-5.1); SODIUM 143 mEq/L (136-145)
[2024-06-04 04:03] LABS: CALCIUM 9.3 mg/dL (8.7-10.4)
[2024-06-04 04:07] LABS: CREATININE 0.7 mg/dL (0.6-1.0); GLUCOSE 94 mg/dL (70-105)
[2024-06-04 04:08] LABS: UREA NITROGEN BLOOD 10 mg/dL (9-23)
[2024-06-04 04:10] LABS: ALANINE AMINOTRANSFERASE 93 IU/L (10-49); ALBUMIN 3.4 g/dL (3.2-4.8); ASPARTATE AMINOTRANSFERASE 43 IU/L (<34); BILIRUBIN TOTAL 0.4 mg/dL (0.1-1.0); PROTEIN TOTAL 6.1 g/dL (6.0-8.3)
[2024-06-04] MEDS: DEXT 5%/0.45% NACL 1000ML 1,000 ML IV SCH (08:44)
[2024-06-04 10:42] LABS: ANISOCYTOSIS 1+; PLATELET ESTIMATE INCREASED
[2024-06-04] MEDS: CEFAZOLIN 1000MG PREMIX 50ML IV NR (10:46)
[2024-06-04] MEDS: FAMOTIDINE 20MG/2ML VIAL IV SCH (15:15)
[2024-06-04] MEDS ORDERED: CEFAZOLIN SODIUM 1000MG/VIAL IV ONE (16:00)
[2024-06-05] VITALS (53 sets, daily range): BP systolic 109–153; BP diastolic 68–105; PULSE 83–137; RESP 13–24; TEMP 36.7–37.3; O2SAT 90–100
[2024-06-05 05:54] LABS: HEMATOCRIT. 24.1 % (36.0-48.0); HEMOGLOBIN. 7.9 g/dL (12.0-16.0); MEAN CORPUSCULAR HEMOGLOBIN 26.3 pg (28.0-32.0); MEAN CORPUSCULAR HGB CONC 32.8 g/dL (31.0-37.0); MEAN CORPUSCULAR VOLUME 80.2 fL (81.0-99.0); MEAN PLATELET VOLUME 7.6 fl (7.4-10.4); PLATELET 740 x1000/uL (130-400); RED CELL DISTRIBUTION WIDTH 18.5 % (11.6-14.6); WHITE BLOOD COUNT 9.5 x1000/uL (4.5-11.0)
[2024-06-05 06:06] LABS: PROTHROMBIN TIME 10.9 sec (9.6-11.0)
[2024-06-05 06:14] LABS: CHLORIDE 105 mEq/L (98-107); POTASSIUM 3.8 mEq/L (3.5-5.1); SODIUM 144 mEq/L (136-145)
[2024-06-05 06:15] LABS: CALCIUM 9.6 mg/dL (8.7-10.4); CARBON DIOXIDE 33 mEq/L (21-32)
[2024-06-05 06:20] LABS: CREATININE 0.9 mg/dL (0.6-1.0); GLUCOSE 102 mg/dL (70-105); UREA NITROGEN BLOOD 11 mg/dL (9-23)
[2024-06-05 06:22] LABS: PHOSPHORUS 4.9 mg/dL (2.5-4.9)
[2024-06-05 07:19] LABS: DIFFERENTIAL COMMENT 1
[2024-06-05 09:22] LABS: MICROCYTOSIS 1+; NUCLEATED RED BLOOD CELLS 1 /100 WBC; PLATELET ESTIMATE INCREASED
[2024-06-05 09:23] LABS: ANISOCYTOSIS 1+
[2024-06-06] VITALS (65 sets, daily range): BP systolic 95–189; BP diastolic 47–126; PULSE 93–127; RESP 14–26; TEMP 37–37.3; O2SAT 80–100
[2024-06-06] MEDS: GUAIFENESIN 200MG/10ML SUGAR FREE UDC PO PRN (03:46)
[2024-06-06] MEDS: ENOXAPARIN 40MG/0.4ML SYR SUBCUT SCH (08:23)
[2024-06-06] MEDS: IPRATROPIUM BROMIDE (0.02%) 0.5MG/2.5ML NEB HHN PRN (18:13)
[2024-06-07] VITALS (32 sets, daily range): BP systolic 101–141; BP diastolic 57–91; PULSE 90–133; RESP 9–23; TEMP 37–37.9; O2SAT 95–100
[2024-06-07] MEDS: DEXT 5%/0.9% NACL 1,000 ML IV SCH (04:00)
[2024-06-07 12:42] LABS: HEMATOCRIT 25.1 % (36.0-48.0); HEMOGLOBIN 7.8 g/dL (12.0-16.0); MEAN CORPUSCULAR HEMOGLOBIN 25.2 pg (28.0-32.0); MEAN CORPUSCULAR HGB CONC 31.2 g/dL (31.0-37.0); MEAN CORPUSCULAR VOLUME 80.7 fL (81.0-99.0); PLATELET 755 x1000/uL (130-400); RED BLOOD CELL COUNT 3.11 mill/uL (4.2-5.4); RED CELL DISTRIBUTION WIDTH 17.7 % (11.6-14.6); WHITE BLOOD COUNT 11.4 x1000/uL (4.5-11.0)
[2024-06-07 12:46] LABS: CHLORIDE 105 mEq/L (98-107); POTASSIUM 3.4 mEq/L (3.5-5.1); SODIUM 145 mEq/L (136-145)
[2024-06-07 12:47] LABS: CALCIUM 9.3 mg/dL (8.7-10.4); CARBON DIOXIDE 30 mEq/L (21-32)
[2024-06-07 12:52] LABS: CREATININE 0.8 mg/dL (0.6-1.0); GLUCOSE 144 mg/dL (70-105); UREA NITROGEN BLOOD 8 mg/dL (9-23)
[2024-06-07] MEDS: LORAZEPAM 2MG/ML INJ IV PRN (13:09)
[2024-06-07] MEDS: LORAZEPAM 2MG/ML INJ IV NR (15:00)
[2024-06-07] MEDS: TRAZODONE HCL 50MG TABLET PO SCH (22:04)
[2024-06-07] MEDS: GABAPENTIN SOLN 300MG/6ML UDC NG SCH (22:06)
[2024-06-08] VITALS (78 sets, daily range): BP systolic 104–171; BP diastolic 62–109; PULSE 96–142; RESP 7–34; TEMP 37.1–37.8; O2SAT 96–100
[2024-06-08 03:46] LABS: HEMATOCRIT. 21.5 % (36.0-48.0); MEAN CORPUSCULAR HEMOGLOBIN 25.7 pg (28.0-32.0); MEAN CORPUSCULAR HGB CONC 32.1 g/dL (31.0-37.0); MEAN CORPUSCULAR VOLUME 80.1 fL (81.0-99.0); MEAN PLATELET VOLUME 7.4 fl (7.4-10.4); PLATELET 580 x1000/uL (130-400); RED BLOOD CELL COUNT 2.68 mill/uL (4.2-5.4); RED CELL DISTRIBUTION WIDTH 17.4 % (11.6-14.6); WHITE BLOOD COUNT 10.4 x1000/uL (4.5-11.0)
[2024-06-08 03:53] LABS: PROTHROMBIN TIME 11.2 sec (9.6-11.0)
[2024-06-08 03:58] LABS: CARBON DIOXIDE 33 mEq/L (21-32); CHLORIDE 109 mEq/L (98-107); SODIUM 149 mEq/L (136-145)
[2024-06-08 04:03] LABS: CREATININE 0.8 mg/dL (0.6-1.0)
[2024-06-08 04:04] LABS: GLUCOSE 109 mg/dL (70-105); UREA NITROGEN BLOOD 8 mg/dL (9-23)
[2024-06-08 04:06] LABS: PHOSPHORUS 4.5 mg/dL (2.5-4.9)
[2024-06-08 04:13] LABS: DIFFERENTIAL COMMENT 1
[2024-06-08 04:14] LABS: HEMOGLOBIN. 6.9 g/dL (12.0-16.0)
[2024-06-08] MEDS: POTASSIUM CHLORIDE 20MEQ/PACKET PO NR (06:38)
[2024-06-08] MEDS ORDERED: AMIODARONE 360MG/200ML 200 ML IV SCH (07:30)
[2024-06-08] MEDS: AMIODARONE HCL 900 MG in DEXT 5% WATER 500 ML IV SCH (08:38)
[2024-06-08] MEDS: CEFAZOLIN 1000MG PREMIX 50 ML IV NR (09:00)
[2024-06-08 12:53] LABS: PLATELET ESTIMATE INCREASED
[2024-06-08 12:54] LABS: MICROCYTOSIS 1+
[2024-06-08] MEDS ORDERED: NALOXONE HCL 0.4MG/ML VIAL IV PRN (13:30)
[2024-06-08] MEDS: MORPHINE SULFATE 4 MG/ML INJ (FOR IV/IM USE) IV NR (13:46)
[2024-06-08] MEDS: MAGNESIUM 2 G PREMIX 50 ML IV NR (15:12)
[2024-06-08 15:20] LABS: HEMATOCRIT 24.9 % (36.0-48.0); HEMOGLOBIN 7.9 g/dL (12.0-16.0)
[2024-06-08] MEDS: KCL 20MEQ/100ML PREMIX 100 ML IV SCH (16:39)
[2024-06-08] MEDS: MORPHINE SULFATE 2 MG/ML INJ (NOT FOR IM USE) IV PRN (17:31)
[2024-06-09] VITALS (59 sets, daily range): BP systolic 112–152; BP diastolic 66–125; PULSE 91–138; RESP 15–28; TEMP 36.5–37.5; O2SAT 91–100
[2024-06-09 00:25] LABS: CALCIUM 9.1 mg/dL (8.7-10.4); CARBON DIOXIDE 30 mEq/L (21-32); CHLORIDE 108 mEq/L (98-107); POTASSIUM 3.5 mEq/L (3.5-5.1); SODIUM 146 mEq/L (136-145)
[2024-06-09 00:30] LABS: CREATININE 0.8 mg/dL (0.6-1.0); GLUCOSE 108 mg/dL (70-105)
[2024-06-09 00:31] LABS: UREA NITROGEN BLOOD 7 mg/dL (9-23)
[2024-06-09] MEDS: METOCLOPRAMIDE HCL 10MG/2ML VIAL IV SCH (06:09)
[2024-06-09] MEDS: OXYCODONE HCL/ACETAMINOPHEN 5/325MG TABLET PO PRN (10:38)
[2024-06-09] MEDS: TRAZODONE HCL 50MG TABLET PO SCH (20:35)
[2024-06-10] VITALS (24 sets, daily range): BP systolic 116–140; BP diastolic 59–95; PULSE 89–130; RESP 11–29; TEMP 36.3–37; O2SAT 98–100
[2024-06-10] MEDS: GUAIFENESIN-DM 200MG-20MG/10ML UDC PO PRN (16:33)
[2024-06-11] VITALS (17 sets, daily range): BP systolic 125–148; BP diastolic 59–103; PULSE 94–134; RESP 15–27; TEMP 36.7–37.6; O2SAT 96–100
[2024-06-11] MEDS: IPRATROPIUM BROMIDE (0.02%) 0.5MG/2.5ML NEB HHN SCH ×2 (08:24→10:11)
[2024-06-11 10:17] LABS: BG BASE EXCESS 5.8 mmol/L (-2.0-3.0); BG CARBOXYHEMOGLOBIN 0.1 % (0.5-1.5); BG FRACTION INSPIRED OXYGEN 28; BG HCO3 ACT 30.8 mmol/L (21.0-28.0); BG METHEMOGLOBIN 0.3 % (0.5-1.5); BG OXYHEMOGLOBIN 96.6 % (94.0-98.0); BG PCO2 47.1 mmHg (32.0-45.0); BG PH 7.433 (7.350-7.450); BG PO2 92.6 mmHg (83.0-108.0); BG SAMPLE SITE RIGHT RADIAL; BG TOTAL HEMOGLOBIN 8.6 g/dL (12.0-16.0); BG VENT MODE COOL AEROSOL
[2024-06-11 11:21] LABS: BASOPHILS % 0.3 % (0.0-2.0); EOSINOPHILS % 0.7 % (0.0-5.0); HEMATOCRIT. 26.7 % (36.0-48.0); HEMOGLOBIN. 8.5 g/dL (12.0-16.0); LYMPHOCYTES % 12.8 % (20.0-50.0); MEAN CORPUSCULAR HEMOGLOBIN 25.6 pg (28.0-32.0); MEAN CORPUSCULAR HGB CONC 31.8 g/dL (31.0-37.0); MEAN CORPUSCULAR VOLUME 80.6 fL (81.0-99.0); MEAN PLATELET VOLUME 7.7 fl (7.4-10.4); MONOCYTES % 11.4 % (2.0-8.0); NEUTROPHILS % 74.8 % (40.0-76.0); PLATELET 455 x1000/uL (130-400); RED BLOOD CELL COUNT 3.32 mill/uL (4.2-5.4); RED CELL DISTRIBUTION WIDTH 16.6 % (11.6-14.6); WHITE BLOOD COUNT 13.7 x1000/uL (4.5-11.0)
[2024-06-11 11:27] LABS: CHLORIDE 107 mEq/L (98-107); POTASSIUM 3.2 mEq/L (3.5-5.1); SODIUM 148 mEq/L (136-145)
[2024-06-11 11:28] LABS: CALCIUM 9.6 mg/dL (8.7-10.4); CARBON DIOXIDE 33 mEq/L (21-32)
[2024-06-11 11:33] LABS: CREATININE 0.7 mg/dL (0.6-1.0); GLUCOSE 112 mg/dL (70-105)
[2024-06-11 11:38] LABS: UREA NITROGEN BLOOD < 5 mg/dL (9-23)
[2024-06-12] VITALS (17 sets, daily range): BP systolic 125–152; BP diastolic 72–138; PULSE 54–147; RESP 19–48; TEMP 36.7–37.6; O2SAT 91–100
[2024-06-12] MEDS: MAGNESIUM 2 G PREMIX 50 ML IV NR (03:17)
[2024-06-12] MEDS: POTASSIUM CHLORIDE 20MEQ/PACKET PO NR ×2 (03:17→20:51)
[2024-06-12] MEDS: DILTIAZEM HCL 60MG TABLET PO SCH ×2 (05:29→14:28)
[2024-06-12 06:12] LABS: BASOPHILS % 0.3 % (0.0-2.0); DIFFERENTIAL COMMENT 0; EOSINOPHILS % 0.5 % (0.0-5.0); HEMATOCRIT. 23.9 % (36.0-48.0); HEMOGLOBIN. 7.7 g/dL (12.0-16.0); LYMPHOCYTES % 15.5 % (20.0-50.0); MEAN CORPUSCULAR HEMOGLOBIN 26.1 pg (28.0-32.0); MEAN CORPUSCULAR HGB CONC 32.3 g/dL (31.0-37.0); MEAN CORPUSCULAR VOLUME 80.8 fL (81.0-99.0); MEAN PLATELET VOLUME 7.5 fl (7.4-10.4); MONOCYTES % 11.9 % (2.0-8.0); NEUTROPHILS % 71.8 % (40.0-76.0); PLATELET 400 x1000/uL (130-400); RED BLOOD CELL COUNT 2.96 mill/uL (4.2-5.4); RED CELL DISTRIBUTION WIDTH 16.5 % (11.6-14.6); WHITE BLOOD COUNT 11.7 x1000/uL (4.5-11.0)
[2024-06-12 13:50] LABS: BASOPHILS % 0.3 % (0.0-2.0); DIFFERENTIAL COMMENT 0; EOSINOPHILS % 0.5 % (0.0-5.0); HEMATOCRIT. 23.4 % (36.0-48.0); HEMOGLOBIN. 7.6 g/dL (12.0-16.0); LYMPHOCYTES % 12.3 % (20.0-50.0); MEAN CORPUSCULAR HEMOGLOBIN 25.9 pg (28.0-32.0); MEAN CORPUSCULAR HGB CONC 32.4 g/dL (31.0-37.0); MEAN CORPUSCULAR VOLUME 79.8 fL (81.0-99.0); MEAN PLATELET VOLUME 7.5 fl (7.4-10.4); MONOCYTES % 11.1 % (2.0-8.0); NEUTROPHILS % 75.8 % (40.0-76.0); PLATELET 391 x1000/uL (130-400); RED BLOOD CELL COUNT 2.93 mill/uL (4.2-5.4); RED CELL DISTRIBUTION WIDTH 16.8 % (11.6-14.6); WHITE BLOOD COUNT 12.6 x1000/uL (4.5-11.0)
[2024-06-12 14:02] LABS: CHLORIDE 106 mEq/L (98-107); POTASSIUM 2.9 mEq/L (3.5-5.1); SODIUM 147 mEq/L (136-145)
[2024-06-12 14:03] LABS: CARBON DIOXIDE 35 mEq/L (21-32)
[2024-06-12 14:08] LABS: CREATININE 0.6 mg/dL (0.6-1.0); GLUCOSE 116 mg/dL (70-105)
[2024-06-12 14:11] LABS: PHOSPHORUS 3.8 mg/dL (2.5-4.9)
[2024-06-12 14:13] LABS: T4 FREE 0.95 ng/dL (0.89-1.76); THYROID STIMULATING HORMONE 0.58 uIU/mL (0.55-4.78)
[2024-06-12 14:31] LABS: UREA NITROGEN BLOOD < 5 mg/dL (9-23)
[2024-06-12] MEDS ORDERED: POTASSIUM CHLORIDE 20MEQ TABLET SR PO NR (16:45)
[2024-06-12] MEDS ORDERED: MAGNESIUM 2 G PREMIX 50 ML IV NR (18:00)
[2024-06-12] MEDS ORDERED: POTASSIUM CHLORIDE 30 MEQ in DEXT 5%/0.9% NACL 985 ML IV ONE (20:15)
[2024-06-12] MEDS: KCL 20MEQ/100ML X 2 FOR TOTAL KCL 40MEQ/200ML IV SCH (21:24)
[2024-06-13] VITALS (15 sets, daily range): BP systolic 102–159; BP diastolic 64–115; PULSE 105–163; RESP 22–49; TEMP 36.9–39.6; O2SAT 95–100
[2024-06-13] MEDS: DIGOXIN 500MCG/2ML AMP IV NR (02:07)
[2024-06-13] MEDS: METOPROLOL TARTRATE 50MG TABLET PO NR (02:07)
[2024-06-13] MEDS: LORAZEPAM 2MG/ML INJ IV PRN (03:49)
[2024-06-13 10:39] LABS: BASOPHILS % 0.4 % (0.0-2.0); EOSINOPHILS % 0.1 % (0.0-5.0); HEMOGLOBIN. 8.5 g/dL (12.0-16.0); LYMPHOCYTES % 7.9 % (20.0-50.0); MEAN CORPUSCULAR HGB CONC 32.8 g/dL (31.0-37.0); MEAN CORPUSCULAR VOLUME 82.2 fL (81.0-99.0); MEAN PLATELET VOLUME 8.3 fl (7.4-10.4); MONOCYTES % 6.8 % (2.0-8.0); NEUTROPHILS % 84.8 % (40.0-76.0); PLATELET 293 x1000/uL (130-400); RED BLOOD CELL COUNT 3.16 mill/uL (4.2-5.4); RED CELL DISTRIBUTION WIDTH 16.6 % (11.6-14.6); WHITE BLOOD COUNT 9.8 x1000/uL (4.5-11.0)
[2024-06-13 10:56] LABS: CHLORIDE 103 mEq/L (98-107); SODIUM 143 mEq/L (136-145)
[2024-06-13 10:57] LABS: CALCIUM 9.1 mg/dL (8.7-10.4); CARBON DIOXIDE 32 mEq/L (21-32)
[2024-06-13 11:02] LABS: CREATININE 0.7 mg/dL (0.6-1.0); GLUCOSE 109 mg/dL (70-105); UREA NITROGEN BLOOD 5 mg/dL (9-23)
[2024-06-13] MEDS: METOPROLOL TARTRATE 50MG TABLET PO SCH (11:39)
[2024-06-13] MEDS ORDERED: KETOROLAC 15MG/ML VIAL IV NR (13:00)
[2024-06-13] MEDS: DILTIAZEM HCL 60MG TABLET PO SCH (14:48)
[2024-06-14] VITALS (14 sets, daily range): BP systolic 100–142; BP diastolic 65–101; PULSE 88–122; RESP 19–27; TEMP 36.7–39.3; O2SAT 96–100
[2024-06-14] MEDS ORDERED: NALOXONE HCL 0.4MG/ML VIAL IV PRN (07:00)
[2024-06-14] MEDS: MORPHINE SULFATE 2 MG/ML INJ (NOT FOR IM USE) IV NR (07:12)
[2024-06-14] MEDS: DILTIAZEM HCL 60MG TABLET PO SCH (07:15)
[2024-06-14] MEDS: METOPROLOL TARTRATE 50MG TABLET PO SCH (11:05)
[2024-06-14] MEDS: KETOROLAC 15MG/ML VIAL IV NR (11:15)
[2024-06-15] VITALS (10 sets, daily range): BP systolic 85–144; BP diastolic 58–87; PULSE 68–116; RESP 19–26; TEMP 36.6–37.6; O2SAT 97–100
[2024-06-15] MEDS: MORPHINE SULFATE 2 MG/ML INJ (NOT FOR IM USE) IV NR (05:53)
[2024-06-15] MEDS: IPRATROPIUM/ALBUTEROL 0.5-3(2.5)MG/3ML NEB HHN PRN (15:07)
[2024-06-15] MEDS: KETOROLAC 15MG/ML VIAL IV PRN (20:00)
[2024-06-16] VITALS (11 sets, daily range): BP systolic 93–147; BP diastolic 68–91; PULSE 80–117; RESP 16–33; TEMP 37–38.5; O2SAT 97–100
[2024-06-16 07:32] LABS: CHLORIDE 103 mEq/L (98-107); POTASSIUM 3.6 mEq/L (3.5-5.1); SODIUM 144 mEq/L (136-145)
[2024-06-16 07:33] LABS: CALCIUM 8.7 mg/dL (8.7-10.4); CARBON DIOXIDE 35 mEq/L (21-32)
[2024-06-16 07:38] LABS: BASOPHILS % 0.2 % (0.0-2.0); CREATININE 0.6 mg/dL (0.6-1.0); DIFFERENTIAL COMMENT 0; EOSINOPHILS % 1.1 % (0.0-5.0); GLUCOSE 133 mg/dL (70-105); HEMATOCRIT. 23.6 % (36.0-48.0); HEMOGLOBIN. 7.8 g/dL (12.0-16.0); MEAN CORPUSCULAR HEMOGLOBIN 26.6 pg (28.0-32.0); MEAN CORPUSCULAR HGB CONC 32.9 g/dL (31.0-37.0); MEAN CORPUSCULAR VOLUME 80.8 fL (81.0-99.0); MEAN PLATELET VOLUME 8.1 fl (7.4-10.4); MONOCYTES % 14.2 % (2.0-8.0); NEUTROPHILS % 70.5 % (40.0-76.0); PLATELET 285 x1000/uL (130-400); RED BLOOD CELL COUNT 2.93 mill/uL (4.2-5.4); RED CELL DISTRIBUTION WIDTH 16.7 % (11.6-14.6); UREA NITROGEN BLOOD 8 mg/dL (9-23); WHITE BLOOD COUNT 9.1 x1000/uL (4.5-11.0)
[2024-06-16 07:40] LABS: PHOSPHORUS 4.8 mg/dL (2.5-4.9)
[2024-06-17] VITALS (11 sets, daily range): BP systolic 105–158; BP diastolic 62–86; PULSE 90–117; RESP 18–35; TEMP 36.8–38.1; O2SAT 93–100
[2024-06-17] MEDS: SERTRALINE HCL 25MG TABLET PO SCH (09:11)
[2024-06-18] VITALS (10 sets, daily range): BP systolic 114–141; BP diastolic 69–91; PULSE 93–107; RESP 19–31; TEMP 36.5–38.1; O2SAT 94–100
[2024-06-18] MEDS: LORAZEPAM 1MG TABLET PO PRN (10:29)
[2024-06-19] VITALS (12 sets, daily range): BP systolic 100–127; BP diastolic 56–79; PULSE 88–105; RESP 12–27; TEMP 36.6–37.6; O2SAT 97–100
[2024-06-19 07:38] LABS: CARBON DIOXIDE 34 mEq/L (21-32); CHLORIDE 104 mEq/L (98-107); POTASSIUM 3.4 mEq/L (3.5-5.1); SODIUM 144 mEq/L (136-145)
[2024-06-19 07:39] LABS: CALCIUM 8.9 mg/dL (8.7-10.4)
[2024-06-19 07:43] LABS: CREATININE 0.7 mg/dL (0.6-1.0)
[2024-06-19 07:44] LABS: GLUCOSE 102 mg/dL (70-105); UREA NITROGEN BLOOD 5 mg/dL (9-23)
[2024-06-19 07:46] LABS: PHOSPHORUS 4.5 mg/dL (2.5-4.9)
[2024-06-19 08:08] LABS: BASOPHILS % 0.5 % (0.0-2.0); DIFFERENTIAL COMMENT 0; HEMATOCRIT. 23.2 % (36.0-48.0); HEMOGLOBIN. 7.6 g/dL (12.0-16.0); LYMPHOCYTES % 21.2 % (20.0-50.0); MEAN CORPUSCULAR HEMOGLOBIN 25.9 pg (28.0-32.0); MEAN CORPUSCULAR HGB CONC 32.6 g/dL (31.0-37.0); MEAN CORPUSCULAR VOLUME 79.3 fL (81.0-99.0); MEAN PLATELET VOLUME 8.3 fl (7.4-10.4); MONOCYTES % 11.8 % (2.0-8.0); NEUTROPHILS % 64.5 % (40.0-76.0); PLATELET 316 x1000/uL (130-400); RED BLOOD CELL COUNT 2.92 mill/uL (4.2-5.4); RED CELL DISTRIBUTION WIDTH 16.7 % (11.6-14.6); WHITE BLOOD COUNT 12.6 x1000/uL (4.5-11.0)
[2024-06-19] MEDS: KCL 20MEQ/100ML PREMIX 100 ML IV NR (11:32)
[2024-06-19] MEDS: MAGNESIUM 2 G PREMIX 50 ML IV NR ×2 (11:32→18:32)
[2024-06-19] MEDS ORDERED: POTASSIUM CHLORIDE 20MEQ/PACKET PO ONE (13:00)
[2024-06-19] MEDS: POTASSIUM CHLORIDE 20MEQ TABLET SR PO NR (14:01)
[2024-06-19] MEDS: GABAPENTIN 300MG CAPSULE PO SCH (21:52)
[2024-06-19] MEDS: OLANZAPINE 5MG TABLET PO SCH (21:52)
[2024-06-20] VITALS (20 sets, daily range): BP systolic 93–124; BP diastolic 56–92; PULSE 77–109; RESP 12–31; TEMP 36.8–37.1; O2SAT 93–100
[2024-06-20] MEDS: DIPHENHYDRAMINE 50MG/ML VIAL IV NR (05:51)
[2024-06-20] MEDS: NEO/POLYMYX B SULF/DEXAMETH 0.1% OPHTH SUSP 5ML BOTHEYE SCH (05:51)
[2024-06-20] MEDS: POLYVINYL ALCOHOL OPHTH DROPS 15ML BOTHEYE SCH (05:51)
[2024-06-20] MEDS: KETOROLAC 15MG/ML VIAL IV PRN (09:21)
[2024-06-20] MEDS ORDERED: LIDOCAINE HCL/PF 1% 2ML VIAL ONE (10:00)
[2024-06-20 16:30] LABS: BG BASE EXCESS 10.1 mmol/L (-2.0-3.0); BG CARBOXYHEMOGLOBIN 0.3 % (0.5-1.5); BG DEOXYHEMOGLOBIN 3.2 % (0.0-5.0); BG FRACTION INSPIRED OXYGEN 28; BG HCO3 ACT 36.2 mmol/L (21.0-28.0); BG METHEMOGLOBIN 0.3 % (0.5-1.5); BG OXYGEN SATURATION 96.8 % (94.0-98.0); BG OXYHEMOGLOBIN 96.2 % (94.0-98.0); BG PCO2 59.6 mmHg (32.0-45.0); BG PH 7.401 (7.350-7.450); BG PO2 92.7 mmHg (83.0-108.0); BG SAMPLE SITE LEFT RADIAL; BG TOTAL HEMOGLOBIN 8.4 g/dL (12.0-16.0); BG VENT MODE NASAL CANNULA
[2024-06-20] MEDS: DOCUSATE SODIUM 100MG CAPSULE PO PRN (19:01)
[2024-06-20] MEDS: POTASSIUM CHLORIDE 20MEQ TABLET SR PO NR (23:27)
[2024-06-21] VITALS (7 sets, daily range): BP systolic 97–119; BP diastolic 51–75; PULSE 87–106; RESP 12–22; TEMP 36.5–36.8; O2SAT 99–100
[2024-06-21 07:41] LABS: BASOPHILS % 0.4 % (0.0-2.0); DIFFERENTIAL COMMENT 0; EOSINOPHILS % 1.9 % (0.0-5.0); HEMATOCRIT. 25.2 % (36.0-48.0); MEAN CORPUSCULAR HEMOGLOBIN 25.3 pg (28.0-32.0); MEAN CORPUSCULAR HGB CONC 31.6 g/dL (31.0-37.0); MEAN CORPUSCULAR VOLUME 80.1 fL (81.0-99.0); MEAN PLATELET VOLUME 7.5 fl (7.4-10.4); MONOCYTES % 12.1 % (2.0-8.0); NEUTROPHILS % 67.6 % (40.0-76.0); PLATELET 425 x1000/uL (130-400); RED BLOOD CELL COUNT 3.15 mill/uL (4.2-5.4); RED CELL DISTRIBUTION WIDTH 17.1 % (11.6-14.6); WHITE BLOOD COUNT 14.3 x1000/uL (4.5-11.0)
[2024-06-21 07:52] LABS: CALCIUM 9.6 mg/dL (8.7-10.4); CHLORIDE 100 mEq/L (98-107); POTASSIUM 4.3 mEq/L (3.5-5.1); SODIUM 142 mEq/L (136-145)
[2024-06-21 07:53] LABS: CARBON DIOXIDE 35 mEq/L (21-32)
[2024-06-21 07:58] LABS: CREATININE 0.8 mg/dL (0.6-1.0); GLUCOSE 98 mg/dL (70-105); UREA NITROGEN BLOOD 6 mg/dL (9-23)
[2024-06-21 08:00] LABS: PHOSPHORUS 5.2 mg/dL (2.5-4.9)
[2024-06-22] VITALS: BP 93/55; PULSE 96; RESP 15; TEMP 36.7; O2SAT 100
[2024-06-22] MEDS: MAGNESIUM 4 G PREMIX 100 ML IV NR (00:32)
[2024-06-22 04:00] VITALS: BP 100/58; PULSE 99; RESP 19; TEMP 36.9; O2SAT 100
[2024-06-22 08:00] VITALS: BP 102/68; PULSE 107; RESP 17; TEMP 36.9; O2SAT 100
[2024-06-22 10:46] LABS: BASOPHILS % 0.4 % (0.0-2.0); DIFFERENTIAL COMMENT 0; EOSINOPHILS % 1.7 % (0.0-5.0); HEMATOCRIT. 25.2 % (36.0-48.0); HEMOGLOBIN. 7.9 g/dL (12.0-16.0); LYMPHOCYTES % 16.9 % (20.0-50.0); MEAN CORPUSCULAR HEMOGLOBIN 25.4 pg (28.0-32.0); MEAN CORPUSCULAR HGB CONC 31.5 g/dL (31.0-37.0); MEAN CORPUSCULAR VOLUME 80.6 fL (81.0-99.0); MEAN PLATELET VOLUME 8.2 fl (7.4-10.4); MONOCYTES % 12.8 % (2.0-8.0); NEUTROPHILS % 68.2 % (40.0-76.0); PLATELET 485 x1000/uL (130-400); RED BLOOD CELL COUNT 3.13 mill/uL (4.2-5.4); RED CELL DISTRIBUTION WIDTH 17.1 % (11.6-14.6); WHITE BLOOD COUNT 14.7 x1000/uL (4.5-11.0)
[2024-06-22 10:49] LABS: CHLORIDE 96 mEq/L (98-107); POTASSIUM 4.9 mEq/L (3.5-5.1); SODIUM 138 mEq/L (136-145)
[2024-06-22 10:54] LABS: CARBON DIOXIDE 36 mEq/L (21-32)
[2024-06-22 10:59] LABS: CREATININE 0.8 mg/dL (0.6-1.0); GLUCOSE 102 mg/dL (70-105)
[2024-06-22 11:01] LABS: UREA NITROGEN BLOOD < 5 mg/dL (9-23)
[2024-06-22] MEDS ORDERED: IPRATROPIUM/ALBUTEROL 0.5-3(2.5)MG/3ML NEB HHN PRN (11:15)
[2024-06-22 12:00] VITALS: BP 105/67; PULSE 111; RESP 22; TEMP 36.8; O2SAT 100
[2024-06-22 16:00] VITALS: BP 97/56; PULSE 115; RESP 19; TEMP 36.8; O2SAT 99
[2024-06-22 20:00] VITALS: BP 112/64; PULSE 128; RESP 17; TEMP 36.8; O2SAT 100
[2024-06-23] VITALS (8 sets, daily range): BP systolic 99–130; BP diastolic 47–82; PULSE 70–116; RESP 17–24; TEMP 36.2–37.9; O2SAT 93–100
[2024-06-23] MEDS: IPRATROPIUM/ALBUTEROL 0.5-3(2.5)MG/3ML NEB HHN SCH (08:01)
[2024-06-23 13:13] LABS: HEMATOCRIT. 24.7 % (36.0-48.0); HEMOGLOBIN. 7.8 g/dL (12.0-16.0); MEAN CORPUSCULAR HEMOGLOBIN 25.6 pg (28.0-32.0); MEAN CORPUSCULAR HGB CONC 31.3 g/dL (31.0-37.0); MEAN CORPUSCULAR VOLUME 81.6 fL (81.0-99.0); MEAN PLATELET VOLUME 7.5 fl (7.4-10.4); PLATELET 446 x1000/uL (130-400); RED BLOOD CELL COUNT 3.03 mill/uL (4.2-5.4); WHITE BLOOD COUNT 12.3 x1000/uL (4.5-11.0)
[2024-06-23 13:20] LABS: CHLORIDE 95 mEq/L (98-107); POTASSIUM 4.2 mEq/L (3.5-5.1); SODIUM 138 mEq/L (136-145)
[2024-06-23 13:21] LABS: CALCIUM 9.8 mg/dL (8.7-10.4); CARBON DIOXIDE 36 mEq/L (21-32)
[2024-06-23 13:26] LABS: CREATININE 0.8 mg/dL (0.6-1.0); GLUCOSE 109 mg/dL (70-105); UREA NITROGEN BLOOD 6 mg/dL (9-23)
[2024-06-23 13:28] LABS: ALANINE AMINOTRANSFERASE 12 IU/L (10-49); ALBUMIN 3.3 g/dL (3.2-4.8); ASPARTATE AMINOTRANSFERASE 17 IU/L (<34)
[2024-06-23 13:29] LABS: BILIRUBIN TOTAL 0.3 mg/dL (0.1-1.0); PROTEIN TOTAL 5.9 g/dL (6.0-8.3)
[2024-06-23 13:38] LABS: DIFFERENTIAL COMMENT 1
[2024-06-23 13:54] LABS: TROPONIN I HIGH SENSITIVITY < 4 ng/L (3.0-34)
[2024-06-24] VITALS (10 sets, daily range): BP systolic 98–110; BP diastolic 52–72; PULSE 95–134; RESP 16–20; TEMP 36–37.5; O2SAT 97–100
[2024-06-24] MEDS ORDERED: LORAZEPAM 0.5MG TABLET PO PRN (09:00)
[2024-06-24 10:10] LABS: ANISOCYTOSIS 1+; PLATELET ESTIMATE INCREASED
[2024-06-24] MEDS: SERTRALINE HCL 100MG TABLET PO SCH (10:20)
[2024-06-24] MEDS: POLYETHYLENE GLYCOL 3350 (17GM) 1 DOSE PACK PO SCH (13:43)
[2024-06-24] MEDS: ENOXAPARIN 40MG/0.4ML SYR SUBCUT SCH (13:45)
[2024-06-24] MEDS: POLYETHYLENE GLYCOL 3350 (17GM) 1 DOSE PACK PO NR (14:45)
[2024-06-24] MEDS: NITROGLYCERIN 0.4MG TABLET SL SL PRN (14:58)
[2024-06-24] MEDS: DILTIAZEM HCL 30MG TABLET PO PRN (15:02)
[2024-06-24] MEDS: IPRATROPIUM BROMIDE (0.02%) 0.5MG/2.5ML NEB HHN PRN (18:44)
[2024-06-24] MEDS: IPRATROPIUM BROMIDE (0.02%) 0.5MG/2.5ML NEB HHN SCH (20:28)
[2024-06-24] MEDS: FAMOTIDINE 20MG TABLET PO SCH (21:33)
[2024-06-24] MEDS: SENNOSIDES/DOCUSATE SOD 8.6/50MG TABLET PO SCH (21:33)
[2024-06-25] VITALS (8 sets, daily range): BP systolic 90–117; BP diastolic 49–86; PULSE 60–99; RESP 16–20; TEMP 36.1–36.8; O2SAT 95–99
[2024-06-25] MEDS ORDERED: POLYETHYLENE GLYCOL 3350 (17GM) 1 DOSE PACK PO SCH (09:00)
[2024-06-25] MEDS ORDERED: ONDANSETRON HCL 4MG TABLET PO ONE (10:15)
[2024-06-25] MEDS: ONDANSETRON HCL 4MG TABLET PO PRN (10:38)
[2024-06-25] MEDS ORDERED: NALOXONE HCL 0.4MG/ML VIAL IV PRN (12:00)
[2024-06-25] MEDS: HYDROCODONE/ACETAMINOPHEN 5/325MG TABLET PO PRN (12:33)
[2024-06-25] MEDS ORDERED: BISACODYL 10MG SUPP PR NR (16:15)
[2024-06-25] MEDS ORDERED: NA PHOS,M-B/NA PHOS,DI-BA ENEMA 118ML PR NR (16:15)
[2024-06-26] VITALS (10 sets, daily range): BP systolic 93–127; BP diastolic 53–77; PULSE 80–127; RESP 16–20; TEMP 35.9–36.8; O2SAT 96–100
[2024-06-26] MEDS ORDERED: NA PHOS,M-B/NA PHOS,DI-BA ENEMA 118ML PR PRN (09:00)
[2024-06-26 10:30] LABS: ALANINE AMINOTRANSFERASE 12 IU/L (10-49); ALBUMIN 3.8 g/dL (3.2-4.8); ASPARTATE AMINOTRANSFERASE 15 IU/L (<34); BASOPHILS % 0.6 % (0.0-2.0); DIFFERENTIAL COMMENT 0; EOSINOPHILS % 3.8 % (0.0-5.0); HEMATOCRIT. 28.1 % (36.0-48.0); LYMPHOCYTES % 18.9 % (20.0-50.0); MEAN CORPUSCULAR HEMOGLOBIN 26.4 pg (28.0-32.0); MEAN CORPUSCULAR HGB CONC 32.2 g/dL (31.0-37.0); MEAN PLATELET VOLUME 7.7 fl (7.4-10.4); MONOCYTES % 14.8 % (2.0-8.0); NEUTROPHILS % 61.9 % (40.0-76.0); PLATELET 490 x1000/uL (130-400); RED BLOOD CELL COUNT 3.42 mill/uL (4.2-5.4); RED CELL DISTRIBUTION WIDTH 17.4 % (11.6-14.6); WHITE BLOOD COUNT 12.6 x1000/uL (4.5-11.0)
[2024-06-26 10:31] LABS: BILIRUBIN TOTAL 0.4 mg/dL (0.1-1.0); PHOSPHORUS 5.3 mg/dL (2.5-4.9); PROTEIN TOTAL 6.8 g/dL (6.0-8.3)
[2024-06-26 11:35] LABS: BILIRUBIN DIRECT < 0.1 mg/dL (<=3.0)
[2024-06-26] MEDS: POLYETHYLENE GLYCOL 3350 (17GM) 1 DOSE PACK PO SCH (20:31)
[2024-06-26] MEDS: MAGNESIUM HYDROXIDE 400MG/5ML 30ML UDC PO PRN (23:12)
[2024-06-27] VITALS (9 sets, daily range): BP systolic 92–116; BP diastolic 56–76; PULSE 77–127; RESP 16–19; TEMP 36.1–37.5; O2SAT 97–100
[2024-06-27] MEDS: MAGNESIUM 1 G PREMIX 100 ML IV NR (06:06)
[2024-06-27] MEDS: LACTULOSE 20G/30ML UDC PO SCH (15:49)
[2024-06-28] VITALS (7 sets, daily range): BP systolic 91–107; BP diastolic 50–71; PULSE 81–108; RESP 16–19; TEMP 36.7–37.4; O2SAT 97–100
[2024-06-28 07:28] LABS: BASOPHILS % 0.5 % (0.0-2.0); EOSINOPHILS % 1.9 % (0.0-5.0); HEMATOCRIT. 26.6 % (36.0-48.0); HEMOGLOBIN. 8.7 g/dL (12.0-16.0); LYMPHOCYTES % 14.7 % (20.0-50.0); MEAN CORPUSCULAR HEMOGLOBIN 26.4 pg (28.0-32.0); MEAN CORPUSCULAR HGB CONC 32.8 g/dL (31.0-37.0); MEAN CORPUSCULAR VOLUME 80.7 fL (81.0-99.0); MONOCYTES % 12.7 % (2.0-8.0); NEUTROPHILS % 70.2 % (40.0-76.0); PLATELET 401 x1000/uL (130-400); RED CELL DISTRIBUTION WIDTH 17.1 % (11.6-14.6); WHITE BLOOD COUNT 14.6 x1000/uL (4.5-11.0)
[2024-06-28 07:53] LABS: CHLORIDE 97 mEq/L (98-107); SODIUM 138 mEq/L (136-145)
[2024-06-28 07:54] LABS: CALCIUM 10.5 mg/dL (8.7-10.4); CARBON DIOXIDE 31 mEq/L (21-32)
[2024-06-28 07:59] LABS: GLUCOSE 135 mg/dL (70-105); UREA NITROGEN BLOOD 7 mg/dL (9-23)
[2024-06-28 08:01] LABS: PHOSPHORUS 4.8 mg/dL (2.5-4.9)
[2024-06-29] VITALS (13 sets, daily range): BP systolic 89–144; BP diastolic 48–82; PULSE 77–129; RESP 16–20; TEMP 35.8–39.1; O2SAT 94–100
[2024-06-29 06:53] LABS: BASOPHILS % 0.4 % (0.0-2.0); EOSINOPHILS % 3.4 % (0.0-5.0); HEMATOCRIT. 25.2 % (36.0-48.0); HEMOGLOBIN. 8.4 g/dL (12.0-16.0); LYMPHOCYTES % 16.8 % (20.0-50.0); MEAN CORPUSCULAR HEMOGLOBIN 26.9 pg (28.0-32.0); MEAN CORPUSCULAR HGB CONC 33.3 g/dL (31.0-37.0); MEAN CORPUSCULAR VOLUME 80.8 fL (81.0-99.0); MONOCYTES % 14.2 % (2.0-8.0); NEUTROPHILS % 65.2 % (40.0-76.0); PLATELET 382 x1000/uL (130-400); RED BLOOD CELL COUNT 3.12 mill/uL (4.2-5.4); WHITE BLOOD COUNT 10.5 x1000/uL (4.5-11.0)
[2024-06-29 07:18] LABS: PHOSPHORUS 5.8 mg/dL (2.5-4.9)
[2024-06-29] MEDS: ACETAMINOPHEN 325MG TABLET PO PRN ×2 (10:12→16:42)
[2024-06-29] MEDS: MAGNESIUM 1 G PREMIX 100 ML IV NR (14:33)
[2024-06-29 16:47] LABS: CLARITY URINE CLOUDY (CLEAR); COLOR URINE YELLOW (YELLOW); GLUCOSE URINE NEGATIVE (NEGATIVE); KETONES URINE NEGATIVE (NEGATIVE); LEUKOCYTE ESTERASE URINE 3+ (NEGATIVE); NITRITE URINE NEGATIVE (NEGATIVE); OCCULT BLOOD URINE TRACE (NEGATIVE); PH URINE 6.5 (4.5-8.0); PROTEIN URINE 1+ (NEGATIVE); SPECIFIC GRAVITY URINE 1.009 (1.005-1.030); UROBILINOGEN URINE 0.2 E.U./dL (0.2-1.0)
[2024-06-29] MEDS ORDERED: CEFEPIME 2GM IN DEXT 5% 100ML IV SCH (17:30)
[2024-06-29 17:46] LABS: SQUAMOUS EPITHELIAL CELL URINE 1+ /lpf (RARE/1+)
[2024-06-29 17:47] LABS: BACTERIA URINE 3+; RBC URINE 0-2 /hpf (0-2); WBC URINE TNTC /hpf (0-2)
[2024-06-29] MEDS: CEFEPIME 2GM/50ML DUPLEX 50 ML IV SCH (18:33)
[2024-06-29 19:26] LABS: INFLUENZA TYPE A Presumptive Negative (Pres. Neg.)
[2024-06-29 19:27] LABS: INFLUENZA TYPE B Presumptive Negative (Pres. Neg.)
[2024-06-30] VITALS (15 sets, daily range): BP systolic 89–119; BP diastolic 46–77; PULSE 92–145; RESP 17–22; TEMP 36.1–40.3; O2SAT 95–100
[2024-06-30 07:03] LABS: CARBON DIOXIDE 33 mEq/L (21-32); CHLORIDE 99 mEq/L (98-107); POTASSIUM 3.9 mEq/L (3.5-5.1); SODIUM 137 mEq/L (136-145)
[2024-06-30 07:04] LABS: CALCIUM 9.8 mg/dL (8.7-10.4)
[2024-06-30 07:09] LABS: CREATININE 0.8 mg/dL (0.6-1.0); GLUCOSE 117 mg/dL (70-105); UREA NITROGEN BLOOD 9 mg/dL (9-23)
[2024-06-30 07:11] LABS: PHOSPHORUS 3.9 mg/dL (2.5-4.9)
[2024-06-30 09:11] LABS: IMMUNOGLOBULIN A 103 mg/dL (87-352); IMMUNOGLOBULIN G 850 mg/dL (586-1602); IMMUNOGLOBULIN M 74 mg/dL (26-217)
[2024-06-30] MEDS: ACETAMINOPHEN 325MG TABLET PO PRN (10:13)
[2024-06-30] MEDS: HYDROCODONE/ACETAMINOPHEN 5/325MG TABLET PO PRN (12:55)
[2024-06-30] MEDS: SODIUM CHLORIDE 0.9% (SEPSIS BOLUS) IV NR (16:28)
[2024-06-30 16:57] LABS: UCG KIT LOT# 907863; UCG SCREEN NEGATIVE
[2024-06-30] MEDS: METRONIDAZOLE 500MG TABLET PO SCH (20:44)
[2024-07-01] VITALS (8 sets, daily range): BP systolic 83–103; BP diastolic 36–67; PULSE 88–116; RESP 18–20; TEMP 36.2–36.6; O2SAT 99–100
[2024-07-01 07:26] LABS: HEMOGLOBIN. 7.8 g/dL (12.0-16.0); MEAN CORPUSCULAR HEMOGLOBIN 26.4 pg (28.0-32.0); MEAN CORPUSCULAR HGB CONC 32.5 g/dL (31.0-37.0); MEAN CORPUSCULAR VOLUME 81.3 fL (81.0-99.0); MEAN PLATELET VOLUME 8.2 fl (7.4-10.4); PLATELET 272 x1000/uL (130-400); RED BLOOD CELL COUNT 2.95 mill/uL (4.2-5.4); RED CELL DISTRIBUTION WIDTH 16.7 % (11.6-14.6)
[2024-07-01 07:44] LABS: CARBON DIOXIDE 31 mEq/L (21-32); CHLORIDE 99 mEq/L (98-107); POTASSIUM 3.8 mEq/L (3.5-5.1); SODIUM 139 mEq/L (136-145)
[2024-07-01 07:46] LABS: CALCIUM 9.7 mg/dL (8.7-10.4); DIFFERENTIAL COMMENT 1
[2024-07-01 07:49] LABS: CREATININE 0.8 mg/dL (0.6-1.0)
[2024-07-01 07:50] LABS: GLUCOSE 88 mg/dL (70-105); UREA NITROGEN BLOOD 11 mg/dL (9-23)
[2024-07-01 07:52] LABS: PHOSPHORUS 4.5 mg/dL (2.5-4.9)
[2024-07-01] MEDS ORDERED: BENZONATATE 100MG CAPSULE PO PRN (14:30)
[2024-07-01 20:38] LABS: ANISOCYTOSIS 1+
[2024-07-01 21:17] LABS: PLATELET ESTIMATE NORMAL
[2024-07-01] MEDS: IPRATROPIUM/ALBUTEROL 0.5-3(2.5)MG/3ML NEB HHN PRN (21:50)
[2024-07-02] VITALS (7 sets, daily range): BP systolic 93–117; BP diastolic 50–74; PULSE 80–114; RESP 15–21; TEMP 36–37.2; O2SAT 95–100
[2024-07-02 08:04] LABS: BASOPHILS % 0.1 % (0.0-2.0); EOSINOPHILS % 2.4 % (0.0-5.0); HEMOGLOBIN. 7.3 g/dL (12.0-16.0); LYMPHOCYTES % 8.8 % (20.0-50.0); MEAN CORPUSCULAR HEMOGLOBIN 25.9 pg (28.0-32.0); MEAN CORPUSCULAR HGB CONC 31.9 g/dL (31.0-37.0); MEAN CORPUSCULAR VOLUME 81.2 fL (81.0-99.0); MEAN PLATELET VOLUME 8.1 fl (7.4-10.4); NEUTROPHILS % 74.7 % (40.0-76.0); PLATELET 256 x1000/uL (130-400); RED BLOOD CELL COUNT 2.83 mill/uL (4.2-5.4); RED CELL DISTRIBUTION WIDTH 16.5 % (11.6-14.6); WHITE BLOOD COUNT 14.4 x1000/uL (4.5-11.0)
[2024-07-02 08:10] LABS: CALCIUM 9.6 mg/dL (8.7-10.4); CARBON DIOXIDE 30 mEq/L (21-32); CHLORIDE 98 mEq/L (98-107); POTASSIUM 3.5 mEq/L (3.5-5.1); SODIUM 137 mEq/L (136-145)
[2024-07-02 08:15] LABS: CREATININE 0.8 mg/dL (0.6-1.0); GLUCOSE 143 mg/dL (70-105); UREA NITROGEN BLOOD 9 mg/dL (9-23)
[2024-07-02] MEDS ORDERED: VANCOMYCIN 1.5GM/250ML IV NR (15:00)
[2024-07-03] VITALS (7 sets, daily range): BP systolic 91–113; BP diastolic 47–62; PULSE 0–101; RESP 16–20; TEMP 36.2–36.7; O2SAT 96–100
[2024-07-03] MEDS ORDERED: VANCOMYCIN 750MG/150ML (BAXTER) IV SCH ×2 (03:00→15:00)
[2024-07-03] MEDS: VANCOMYCIN 1.5GM/250ML IV NR (03:46)
[2024-07-03 07:14] LABS: CALCIUM 10.2 mg/dL (8.7-10.4); CHLORIDE 101 mEq/L (98-107); SODIUM 140 mEq/L (136-145)
[2024-07-03 07:15] LABS: CARBON DIOXIDE 30 mEq/L (21-32)
[2024-07-03 07:20] LABS: CREATININE 0.7 mg/dL (0.6-1.0); GLUCOSE 84 mg/dL (70-105); UREA NITROGEN BLOOD 6 mg/dL (9-23)
[2024-07-03 07:26] LABS: BASOPHILS % 0.4 % (0.0-2.0); EOSINOPHILS % 3.7 % (0.0-5.0); HEMOGLOBIN. 8.3 g/dL (12.0-16.0); LYMPHOCYTES % 14.8 % (20.0-50.0); MEAN CORPUSCULAR HEMOGLOBIN 26.4 pg (28.0-32.0); MEAN CORPUSCULAR HGB CONC 31.7 g/dL (31.0-37.0); MEAN PLATELET VOLUME 7.9 fl (7.4-10.4); MONOCYTES % 14.1 % (2.0-8.0); PLATELET 322 x1000/uL (130-400); RED BLOOD CELL COUNT 3.13 mill/uL (4.2-5.4); RED CELL DISTRIBUTION WIDTH 16.9 % (11.6-14.6); WHITE BLOOD COUNT 12.4 x1000/uL (4.5-11.0)
[2024-07-04] VITALS (7 sets, daily range): BP systolic 95–116; BP diastolic 51–75; PULSE 69–100; RESP 16–19; TEMP 36.1–36.7; O2SAT 96–100
[2024-07-04 06:46] LABS: CARBON DIOXIDE 33 mEq/L (21-32); CHLORIDE 101 mEq/L (98-107); SODIUM 141 mEq/L (136-145)
[2024-07-04 06:57] LABS: CALCIUM 10.2 mg/dL (8.7-10.4)
[2024-07-04 07:02] LABS: CREATININE 0.7 mg/dL (0.6-1.0); GLUCOSE 82 mg/dL (70-105)
[2024-07-04 07:03] LABS: UREA NITROGEN BLOOD 6 mg/dL (9-23)
[2024-07-04 08:02] LABS: BASOPHILS % 0.6 % (0.0-2.0); DIFFERENTIAL COMMENT 0; EOSINOPHILS % 5.1 % (0.0-5.0); HEMATOCRIT. 22.9 % (36.0-48.0); HEMOGLOBIN. 7.5 g/dL (12.0-16.0); LYMPHOCYTES % 16.2 % (20.0-50.0); MEAN CORPUSCULAR HEMOGLOBIN 26.8 pg (28.0-32.0); MEAN CORPUSCULAR HGB CONC 32.8 g/dL (31.0-37.0); MEAN CORPUSCULAR VOLUME 81.7 fL (81.0-99.0); MEAN PLATELET VOLUME 7.6 fl (7.4-10.4); MONOCYTES % 13.9 % (2.0-8.0); NEUTROPHILS % 64.2 % (40.0-76.0); PLATELET 330 x1000/uL (130-400); RED CELL DISTRIBUTION WIDTH 16.8 % (11.6-14.6); WHITE BLOOD COUNT 9.1 x1000/uL (4.5-11.0)
[2024-07-04 17:07] LABS: A/G RATIO 0.8 (0.7-1.7); ALBUMIN 2.6 g/dL (2.9-4.4); ALPHA-1-GLOBULIN 0.4 g/dL (0.0-0.4); ALPHA-2-GLOBULIN 0.8 g/dL (0.4-1.0); BETA GLOBULIN 1.3 g/dL (0.7-1.3); GAMMA GLOBULINS 0.7 g/dL (0.4-1.8); GLOBULIN TOTAL 3.1 g/dL (2.2-3.9); M-SPIKE Not Observed g/dL (Not Observed); TOTAL PROTEIN SERUM 5.7 g/dL (6.0-8.5)
[2024-07-05] VITALS (7 sets, daily range): BP systolic 92–106; BP diastolic 49–65; PULSE 78–108; RESP 17–20; TEMP 35.6–36.8; O2SAT 97–100
[2024-07-05] MEDS: MAGNESIUM 4 G PREMIX 100 ML IV NR (11:17)
[2024-07-05] MEDS ORDERED: IBUPROFEN 400MG TABLET PO PRN (21:15)
[2024-07-06] VITALS (7 sets, daily range): BP systolic 97–119; BP diastolic 58–71; PULSE 92–124; RESP 18–20; TEMP 36.5–36.9; O2SAT 98–100
[2024-07-06] MEDS: KETOROLAC 15MG/ML VIAL IV NR (17:43)
[2024-07-07] VITALS (8 sets, daily range): BP systolic 96–110; BP diastolic 52–69; PULSE 83–119; RESP 18–20; TEMP 36.2–36.7; O2SAT 96–100
[2024-07-07] MEDS: KETOROLAC 15MG/ML VIAL IV PRN (01:17)
[2024-07-07] MEDS: IPRATROPIUM/ALBUTEROL 0.5-3(2.5)MG/3ML NEB HHN PRN (16:45)
[2024-07-07] MEDS: IPRATROPIUM/ALBUTEROL 0.5-3(2.5)MG/3ML NEB HHN SCH (21:41)
[2024-07-08] VITALS (7 sets, daily range): BP systolic 92–118; BP diastolic 52–88; PULSE 68–118; RESP 17–20; TEMP 36.3–36.7; O2SAT 96–100
[2024-07-08] MEDS ORDERED: SERT100T PO ×2 (09:24→14:32)
[2024-07-08] MEDS ORDERED: FAMO20TA8 PO ×2 (09:24→14:32)
[2024-07-08] MEDS ORDERED: BENZ100C86 PO ×2 (09:24→14:32)
[2024-07-08] MEDS ORDERED: OLAN5TAB74 PO ×2 (09:24→14:32)
[2024-07-08] MEDS ORDERED: GABA-1180 PO ×2 (09:24→14:32)
[2024-07-08] MEDS ORDERED: TRAMADOL HCL/ACETAMINOPHEN 37.5/325MG TABLET PO PRN (12:30)
[2024-07-08] MEDS ORDERED: TRAZ-251 PO (14:32)
[2024-07-08] MEDS ORDERED: ACET-2708 PO (14:32)
[2024-07-08] MEDS ORDERED: IBUP-2028 PO (14:32)
[2024-07-08] MEDS ORDERED: FERR-63 PO (14:32)
[2024-07-08] MEDS ORDERED: BUDE6HFA INH (14:32)
[2024-07-08] MEDS ORDERED: ALBU18HF2 IH (14:32)
[2024-07-08] MEDS ORDERED: TRAM-534 PO (14:32)
[2024-07-08] MEDS ORDERED: WHEA1POW2 PO (17:41)
[2024-07-08] MEDS ORDERED: TRAZODONE HCL 50MG TABLET PO SCH (21:00)
== END 2024-07-08 17:05 | disposition home or self-care (01) | DRG 4 ==
LOC: ER 23:12 → CVICU 05-10 01:49 → EDBEDREQ 05-10 02:09 → EDBEDREQTM 05-10 02:09 → EDBEDREQSVC 05-10 06:50 → 5EST 06-09 15:43 → 4WST 06-22 14:20 → 6WST 06-30 22:10
PROVIDERS: ADMIT Internal Medicine; ATTEND Internal Medicine
PROC: 0BH17EZ Insertion of Endotracheal Airway into Trachea, Via Natural or Artificial Opening (ICD-10-PCS; principal; 2024-05-10)
PROC: 5A1955Z Respiratory Ventilation, Greater than 96 Consecutive Hours (ICD-10-PCS; 2024-05-10)
PROC: 5A09357 Assistance with Respiratory Ventilation, Less than 24 Consecutive Hours, Continuous Positive Airway Pressure (ICD-10-PCS; 2024-05-10)
PROC: 02HV33Z Insertion of Infusion Device into Superior Vena Cava, Percutaneous Approach (ICD-10-PCS; 2024-05-15)
PROC: B548ZZA Ultrasonography of Superior Vena Cava, Guidance (ICD-10-PCS; 2024-05-15)
PROC: 4A023N7 Measurement of Cardiac Sampling and Pressure, Left Heart, Percutaneous Approach (ICD-10-PCS; 2024-05-21)
PROC: B215YZZ Fluoroscopy of Left Heart using Other Contrast (ICD-10-PCS; 2024-05-21)
PROC: B41FYZZ Fluoroscopy of Right Lower Extremity Arteries using Other Contrast (ICD-10-PCS; 2024-05-21)
PROC: B41CYZZ Fluoroscopy of Pelvic Arteries using Other Contrast (ICD-10-PCS; 2024-05-21)
PROC: 5A09357 Assistance with Respiratory Ventilation, Less than 24 Consecutive Hours, Continuous Positive Airway Pressure (ICD-10-PCS; 2024-05-23)
PROC: 5A1955Z Respiratory Ventilation, Greater than 96 Consecutive Hours (ICD-10-PCS; 2024-05-24)
PROC: 0BH17EZ Insertion of Endotracheal Airway into Trachea, Via Natural or Artificial Opening (ICD-10-PCS; 2024-05-24)
PROC: 5A09357 Assistance with Respiratory Ventilation, Less than 24 Consecutive Hours, Continuous Positive Airway Pressure (ICD-10-PCS; 2024-05-24)
PROC: 0B110F4 Bypass Trachea to Cutaneous with Tracheostomy Device, Open Approach (ICD-10-PCS; 2024-05-28)
PROC: 0DB78ZX Excision of Stomach, Pylorus, Via Natural or Artificial Opening Endoscopic, Diagnostic (ICD-10-PCS; 2024-06-08)
PROC: 0DH63UZ Insertion of Feeding Device into Stomach, Percutaneous Approach (ICD-10-PCS; 2024-06-08)
PROC: 30233N1 Transfusion of Nonautologous Red Blood Cells into Peripheral Vein, Percutaneous Approach (ICD-10-PCS; 2024-06-08)
PROC: 5A0935A Assistance with Respiratory Ventilation, Less than 24 Consecutive Hours, High Flow/Velocity Cannula (ICD-10-PCS; 2024-06-12)
PROC: 5A0935A Assistance with Respiratory Ventilation, Less than 24 Consecutive Hours, High Flow/Velocity Cannula (ICD-10-PCS; 2024-06-13)
DX: J96.01 Acute respiratory failure with hypoxia (principal); A41.9 Sepsis, unspecified organism; N17.0 Acute kidney failure with tubular necrosis; I21.4 Non-ST elevation (NSTEMI) myocardial infarction; G93.41 Metabolic encephalopathy; I46.9 Cardiac arrest, cause unspecified; G82.50 Quadriplegia, unspecified; J44.1 Chronic obstructive pulmonary disease with (acute) exacerbation; J45.902 Unspecified asthma with status asthmaticus; I16.1 Hypertensive emergency; E87.4 Mixed disorder of acid-base balance; Z99.11 Dependence on respirator [ventilator] status; I47.19 Other supraventricular tachycardia; N13.6 Pyonephrosis; G72.81 Critical illness myopathy; J96.02 Acute respiratory failure with hypercapnia; I11.9 Hypertensive heart disease without heart failure; E87.5 Hyperkalemia; K59.00 Constipation, unspecified; F40.00 Agoraphobia, unspecified; E78.5 Hyperlipidemia, unspecified; Z86.718 Personal history of other venous thrombosis and embolism; D64.9 Anemia, unspecified; T38.0X5A Adverse effect of glucocorticoids and synthetic analogues, initial encounter; F41.0 Panic disorder [episodic paroxysmal anxiety]; E87.6 Hypokalemia; R13.12 Dysphagia, oropharyngeal phase; K29.70 Gastritis, unspecified, without bleeding; Y92.238 Other place in hospital as the place of occurrence of the external cause; E05.90 Thyrotoxicosis, unspecified without thyrotoxic crisis or storm; F40.240 Claustrophobia; F41.1 Generalized anxiety disorder; E20.9 Hypoparathyroidism, unspecified; F40.10 Social phobia, unspecified; D50.9 Iron deficiency anemia, unspecified; H57.13 Ocular pain, bilateral; Z87.891 Personal history of nicotine dependence; Z68.33 Body mass index [BMI] 33.0-33.9, adult; Z83.2 Family history of diseases of the blood and blood-forming organs and certain disorders involving the immune mechanism; E66.01 Morbid (severe) obesity due to excess calories
CPT/HCPCS: 31500; 36415; 36573; 36600; 71045; 71250; 74018; 74176; 74230; 76700; 80048; 80053; 80061; 80076; 81003; 81025; 82330; 82375; 82607; 82728; 82746; 82784; 82805; 82962; 83036; 83520; 83540; 83550; 83605; 83735; 83880; 83970; 84100; 84132; 84145; 84155; 84165; 84439; 84443; 84478; 84480; 84481; 84484; 84703; 85014; 85018; 85025; 85027; 85044; 85379; 86334; 86850; 86900; 86920; 87070; 87426; 87804; 88305; 88312; 88313; 92610; 92611; 93005; 93306; 93458; 93970; 94002; 94003; 94070; 94618; 94640; 94660; 94664; 97110; 97116; 97162; 97164; 97166; 97530; 97535; 98960; 99291; A4606; C1725; C1769; C1887; C1893; J0282; J0456; J0690; J0692; J0696; J1160; J1200; J1630; J1644; J1650; J1815; J1885; J1940; J2003; J2004; J2060; J2250; J2270; J2405; J2470; J2704; J2765; J2919; J3010; J3370; J3475; J3480; J3490; J7030; J7040; J7042; J7050; J7060; J7120; J7121; J7131; J7626; P9016; Q0162; Q9957; Q9967